=== PATIENT | female | born 1965 | race Caucasian/White ===

== ENCOUNTER 2019-09-04 15:27 | Emergency (ER) | payer OTHER, SELFPAY ==
[2019-09-04 15:38] VITALS: BP 118/70; PULSE 100; RESP 16; TEMP 36.5; O2SAT 99
--- NOTE | 2019-09-04 16:10 | ED.GENADULT ---
HPI - General Adult General Chief complaint: Upper Respiratory Infection Stated complaint: congestion sore throat Time Seen by Provider: 09/04/19 16:10 Source: patient and RN notes reviewed Mode of arrival: ambulatory Limitations: no limitations History of Present Illness HPI narrative: 54-year-old female presents with complaints of wheezing, fever, fatigue, sore throat, and PND for 3 days. Tylenol cold and sinus (last today @ 11:30am) and Dimetapp with some relief. High fevers last 2 days ago, highest 102F, orally, yesterday low-grade temperature of 99.8F, orally. No drooling, neck or throat swelling. Pain is bilateral. Hurts to swallow. Exacerbation factors consist of eating and drinking. No rhinorrhea. Nasal congestion. No voice change. No nausea, vomiting, or abdominal pain. Tolerating liquids well. Denies chills, dyspnea, difficulty swallowing, jaw pain, dental pain, facial pain, foreign body sensation, and rash. Remains active. Some parts of this dictation were generated by voice recognition software and may contain typographical and/or grammatical inaccuracies. Related Data Home Medications Medication Instructions Recorded Confirmed gabapentin 300 mg PO DAILY 09/04/19 09/04/19 insulin glargine [Lantus U-100 15 unit SUBCUT BID 09/04/19 09/04/19 Insulin] metformin 1,000 mg PO BID 09/04/19 09/04/19 pantoprazole 40 mg PO HS 09/04/19 09/04/19 semaglutide [Ozempic] 0.25 mg SUBCUT WEEKLY 09/04/19 09/04/19 Allergies Allergy/AdvReac Type Severity Reaction Status Date / Time No Known Allergies Allergy Unknown Verified 09/04/19 15:51 Review of Systems Review of Systems: Narrative: CONSTITUTIONAL: Complains of fever. Denies chills, sweats. EYES: Denies visual changes, redness, discharge. ENT: Complains of rhinorrhea, sore throat, congestion. Denies otalgia. CARDIOVASCULAR: Denies chest pain, palpitations, edema. RESPIRATORY: Denies dyspnea. Complains of cough, wheezing. GASTROINTESTINAL: Denies abdominal pain, nausea, vomiting, diarrhea. GENITOURINARY: Denies dysuria, hematuria, abnormal discharge. SKIN: Denies rash or itching. MUSCULOSKELETAL: Denies acute back pain, joint pain, or myalgia. NEUROLOGIC: Denies numbness or focal weakness. PSYCHIATRIC: Denies anxiety or depression. All systems reviewed & are unremarkable except as noted in HPI and below. [facility] Past Medical History Medical History Bronchitis Diabetes HLD (hyperlipidemia) HTN (hypertension) Peripheral neuropathy Surgical History Surgical History History of bilateral oophorectomy History of hysterectomy History of inguinal hernia repair As baby History of lumbar surgery L4-L5 fusion History of rotator cuff surgery lt rotator cuff, 2 screws History of tubal ligation Family History Family History Mother Hypertension Father Family history of diabetes mellitus in first degree relative Family history of coronary artery disease Social History Social History Smoking status: Never smoker Alcohol intake: never Gender identity (if verbalized by the patient): Female Comments At time of signature, agree with nurse past medical, surgical, social, and family history. There is no relevant family history pertinent to the presenting complaint. Exam Narrative: Exam Narrative: GENERAL: This is a well-nourished, well-developed patient, in no apparent distress. Speaks in full sentences without deficits and ambulates with steady gait without dyspnea. HEAD: normocephalic, atraumatic. EYES: PERRL. Sclera clear/white. Vision is grossly intact. EARS: External ears normal, auditory canals clear and without drainage, TMs normal without perforation. Hearing grossly intact. NOSE: External nose normal with no obv
== END 2019-09-04 16:27 | disposition home or self-care (01) ==
PROVIDERS: Emergency Provider Nurse Practitioner Family
DX: J40 Bronchitis, not specified as acute or chronic (principal)
CPT/HCPCS: 87081; 87880; 99213; G0463

== ENCOUNTER 2020-09-11 14:44 | Emergency (ER) | payer OTHER, SELFPAY ==
--- NOTE | ~2020-09-11 | XR_ITS ---
EXAMINATION: XR humerus RT DATE: 09/11/2020 15:49 INDICATION: Mid to proximal right humeral pain post fall TECHNIQUE: Internal and axillary rotated views of the right humerus were obtained. COMPARISON: None. FINDINGS: Line alignment is normal. No fracture. Polyarticular osteoarthritis, mild at the right elbo w and glenohumeral joint and moderate at the right acromioclavicular joint. Large anterior and latera l subacromial spurs. The undersurface of the acromion projects within a couple millimeter of the grea ter tuberosity on the externally rotated view which suggests the possibility of rotator cuff disease. Several enthesopathic calcification at the lateral epicondylar origin of the common extensor tendon wad. IMPRESSION: 1. Chronic degenerative changes at the right shoulder and elbow as detailed above. No acute osseous a bnormality. Reviewed, dictated and finalized at location A. OTICS DETECTIVE IMPRESSION: 1. Chronic degenerative changes at the right shoulder and elbow as detailed abo ve. No acute osseous abnormality.
--- NOTE | ~2020-09-11 | XR_ITS ---
EXAMINATION: XR sacrum coccyx min 2V DATE: 09/11/2020 15:49 INDICATION: Tailbone pain post fall TECHNIQUE: AP, angled AP and lateral views of the sacrum were obtained. COMPARISON: Lumbar spine radiograph dated 09/23/[address] dated 06/27/2019 FINDINGS: Stable appearance of peripheral posterior angulation at the distalmost sacral segment which could be developmental variation or sequela of old healed fracture. Alignment is otherwise normal. Sacral arch es are intact. No acute fractures identified. Mild polyarticular osteoarthritis at the bilateral hip and sacroiliac joints. Mild to moderate lower lumbar spondylosis. Several phleboliths in the pelvis. IMPRESSION: 1. No acute osseous abnormality. Reviewed, dictated and finalized at location A. CTURAL RIGGER
[2020-09-11 15:00] VITALS: BP 107/80; PULSE 102; RESP 20; TEMP 36.9; O2SAT 98
[2020-09-11 15:14] VITALS: BP 107/80; PULSE 102; RESP 20; TEMP 36.9; O2SAT 98
--- NOTE | 2020-09-11 16:09 | ED.GENADULT ---
HPI - General Adult General Chief complaint: Fall Stated complaint: tailbone and arm injury Time Seen by Provider: 09/11/20 15:04 Source: patient and RN notes reviewed Mode of arrival: ambulatory Limitations: no limitations History of Present Illness HPI narrative: Patient presents today complaining of tailbone and right shoulder pain. Around 11 AM today she slipped and fell down 3 steps at home. She is experiencing pain in the tailbone that does not radiate. Denies numbness or tingling in all 4 extremities. Denies numbness or tingling in the genitalia. Denies any loss of bowel or bladder control. Patient took Aleve and a hot bath at home without relief. Currently rates her pain 5/10. History of L4 discectomy. MD complaint: Tailbone injury, right shoulder injury Related Data Home Medications Medication Instructions Recorded Confirmed gabapentin 300 mg PO TID 09/04/19 09/11/20 insulin glargine [Lantus U-100 15 unit SUBCUT BID 09/04/19 09/11/20 Insulin] metformin 1,000 mg PO BID 09/04/19 09/11/20 pantoprazole 40 mg PO HS 09/04/19 09/11/20 semaglutide [Ozempic] 0.25 mg SUBCUT WEEKLY 09/04/19 09/11/20 Allergies Allergy/AdvReac Type Severity Reaction Status Date / Time No Known Allergies Allergy Unknown Verified 09/11/20 15:09 Review of Systems Review of Systems: Narrative: CONSTITUTIONAL: Denies body aches, fever, chills, or sweats. EYES: Denies visual changes, redness, or discharge. ENT: Denies rhinorrhea, congestion, sore throat, or otalgia. CARDIOVASCULAR: Denies chest pain, palpitations, or edema. RESPIRATORY: Denies cough or dyspnea. GASTROINTESTINAL: Denies abdominal pain, nausea, vomiting, or diarrhea. GENITOURINARY: Denies dysuria or hematuria. SKIN: Denies rash, itching, or wounds. MUSCULOSKELETAL: + Coccyx injury, right shoulder injury NEUROLOGIC: Denies headache, numbness, tingling, or weakness. PSYCH: Denies depression or anxiety. [facility] Past Medical History Medical History Bronchitis Diabetes HLD (hyperlipidemia) HTN (hypertension) Peripheral neuropathy Surgical History Surgical History History of bilateral oophorectomy History of hysterectomy History of inguinal hernia repair As baby History of lumbar surgery L4-L5 fusion History of rotator cuff surgery lt rotator cuff, 2 screws History of tubal ligation Family History Family History Mother Hypertension Father Family history of diabetes mellitus in first degree relative Family history of coronary artery disease Social History Social History Smoking status: Never smoker Alcohol intake: never Gender identity (if verbalized by the patient): Female Comments At time of signature, I have reviewed and agree with nursing past medical, surgical, social and family history unless otherwise noted. Please see nursing chart for further information. There is no relevant family history pertinent to the presenting complaint Exam Narrative: Exam Narrative: GENERAL: Well-appearing, well-nourished, and in no acute distress. HEAD: Normocephalic, atraumatic. EYES: EOMI. No redness or drainage. Conjunctivae normal. ENT: Mucous membranes pink and moist. NECK: Normal AROM. CHEST: No respiratory distress. MUSCULOSKELETAL: Bony tenderness of the coccyx. No gluteal tenderness. No lumbar spinal or paraspinal muscle tenderness. EXTREMITIES: Normal range of motion. No edema. Dorsiflexion and extension equal and strong against resistance. Distal sensation intact. Capillary refill normal. Pedal pulses normal. Right shoulder is mildly tender to the proximal humerus. Mild pain with range of motion, however, patient uses this arm getting in and out of the chair without difficulty. Distal sensation intact
== END 2020-09-11 16:20 | disposition home or self-care (01) ==
PROVIDERS: Emergency Provider Nurse Practitioner; PCP Nurse Practitioner Family
DX: S39.92XA Unspecified injury of lower back, initial encounter (principal); W10.9XXA Fall (on) (from) unspecified stairs and steps, initial encounter; S49.91XA Unspecified injury of right shoulder and upper arm, initial encounter; E78.5 Hyperlipidemia, unspecified; I10 Essential (primary) hypertension; E11.42 Type 2 diabetes mellitus with diabetic polyneuropathy
CPT/HCPCS: 72220; 73060; 99214; G0463

== ENCOUNTER 2020-11-25 17:11 | Emergency (ER) | payer OTHER, SELFPAY ==
--- NOTE | ~2020-11-25 | XR_ITS ---
EXAMINATION: XR chest 2V DATE: 11/25/2020 17:40 INDICATION: COVID exposure presenting with cough and hypoxia TECHNIQUE: frontal and lateral views of the chest were obtained. COMPARISON: Chest radiograph dated 04/25/19 FINDINGS: Subtle patchy airspace opacities in the bilateral lower lung zones on the frontal projection more pro mptly seen posteriorly in the lower lobes on the lateral projection. No pleural effusion or pneumotho rax. The cardiomediastinal silhouette is normal. Mild thoracic spondylosis. IMPRESSION: 1. Opacities in the bilateral lower lobes suspicious for pneumonia with differential including less l ikely pulmonary edema, atelectasis or aspiration in the appropriate clinical setting. Reviewed, dictated and finalized at location A. IMPRESSION: 1. Opacities in the bilateral lower lobes suspicious for pneumonia with differe ntial including less likely pulmonary edema, atelectasis or aspiration in the a ppropriate clinical setting.
[2020-11-25 17:15] VITALS: BP 129/82; PULSE 113; RESP 16; TEMP 36.4; O2SAT 93
--- NOTE | 2020-11-25 17:20 | ED.GENADULT ---
HPI - General Adult General Chief complaint: Upper Respiratory Infection Stated complaint: cough Time Seen by Provider: 11/25/20 17:20 Source: patient Mode of arrival: ambulatory Limitations: no limitations History of Present Illness HPI narrative: 55-year-old female patient presents to the [facility] with complaints of a cough that started 2 days ago. Patient states she had some sinus symptoms and was treated for sinus infection about 2 weeks ago and was feeling better about a week ago. Patient states that she was a last around a coworker that tested positive for Covid 2 days ago and started having a cough the day after her exposure. Patient denies any chest pain or shortness of breath or fevers but continues to have a cough. Patient states she has taken some [id number] Mucinex. 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 Patient states she has not received any Covid vaccines. Related Data Home Medications Medication Instructions Recorded Confirmed gabapentin 300 mg PO TID 09/04/19 11/25/20 insulin glargine [Lantus U-100 15 unit SUBCUT BID 09/04/19 11/25/20 Insulin] metformin 1,000 mg PO BID 09/04/19 11/25/20 semaglutide [Ozempic] 0.25 mg SUBCUT WEEKLY 09/04/19 11/25/20 Allergies Allergy/AdvReac Type Severity Reaction Status Date / Time codeine AdvReac Unknown Verified 11/25/20 17:25 Review of Systems Review of Systems: Narrative: CONSTITUTIONAL: Denies fever, chills, or sweats. EYES: Denies visual changes, redness, or discharge. ENT: Denies rhinorrhea, congestion, sore throat, or otalgia. CARDIOVASCULAR: Denies chest pain, palpitations, or edema. RESPIRATORY: Positive cough, denies dyspnea. GASTROINTESTINAL: Denies abdominal pain, nausea, vomiting, or diarrhea. GENITOURINARY: Denies dysuria or hematuria. SKIN: Denies rash or itching. MUSCULOSKELETAL: Denies back pain, joint pain, or myalgia. NEUROLOGIC: Denies headache, numbness, or weakness. PSYCHIATRIC: Denies anxiety or depression. [facility] Past Medical History Medical History (Updated 11/25/20 @ 18:18 by JOANIE Chowdhury) Bronchitis Diabetes HLD (hyperlipidemia) HTN (hypertension) Peripheral neuropathy Surgical History Surgical History History of bilateral oophorectomy History of hysterectomy History of inguinal hernia repair As baby History of lumbar surgery L4-L5 fusion History of rotator cuff surgery lt rotator cuff, 2 screws History of tubal ligation Family History Family History Mother Hypertension Father Family history of diabetes mellitus in first degree relative Family history of coronary artery disease Social History Social History Smoking status: Never smoker Alcohol intake: never Gender identity (if verbalized by the patient): Female Comments At the time of my signature I agree with nursing past medical history, surgical, social, and family history. There is no relevant family history pertinent to the presenting complaint. Exam Narrative: Exam Narrative: GENERAL: Well-appearing, well-nourished, and in no acute distress. HEAD: Normocephalic, atraumatic. EYES: PERRLA and EOMI. ENT: Nares clear, no rhinorrhea or epistaxis. Mucous membranes moist. NECK: Supple. No lymphadenopathy CHEST: Patient has slight wheezing noted to bilateral lower lobes on inspiration. No respiratory distress. Patient does have coughing noted during exam. HEART: Regular rate and rhythm. No murmur heard. Normal peripheral pulses. ABDOMEN: Soft, nontender, nondistended, normal active bowel sounds. EXTREMITIES: Normal range of motion. No edema. SKIN: Warm, dry, no rash. NEURO: No focal deficits. Alert and oriented x3. Course Reevaluation(s) Reevaluation #1: Reevaluated patient once her x-ray resulted. Discussed with her that the x-ray does show bilateral lower pneumonia.
[2020-11-27 14:27] LABS: SARS-CoV-2 RNA PCR Positive
== END 2020-11-25 18:24 | disposition home or self-care (01) ==
PROVIDERS: Emergency Provider Nurse Practitioner Family; PCP Nurse Practitioner Family
DX: U07.1 COVID-19 (principal); J12.82 Pneumonia due to coronavirus disease 2019; E78.5 Hyperlipidemia, unspecified; I10 Essential (primary) hypertension; E11.42 Type 2 diabetes mellitus with diabetic polyneuropathy
CPT/HCPCS: 71046; 99213; C9803; G0463; U0003; U0005

== ENCOUNTER 2020-12-30 17:07 | Emergency (ER) | payer OTHER, SELFPAY ==
--- NOTE | ~2020-12-30 | XR_ITS ---
XR chest 2V DATE: 12/30/2020 17:59 INDICATION: Cough, shortness of breath for 2 days TECHNIQUE: 2 views COMPARISON: 11/25/2020 2 view chest FINDINGS: Normal heart size. No hilar or mediastinal enlargement. There is virtual resolution of bila teral lower lobe infiltrates since 11/25/2020. No pleural effusion or pulmonary vascular congestion or pneumothorax. IMPRESSION: Virtual resolution of bilateral lower lobe infiltrates since 11/25/2020 Reviewed, dictated and finalized at location A. IMPRESSION: Virtual resolution of bilateral lower lobe infiltrates since 11/26/19 21
[2020-12-30 17:20] VITALS: BP 107/78; PULSE 110; RESP 22; TEMP 37.1; O2SAT 99
--- NOTE | 2020-12-30 18:08 | ED.URI ---
HPI - URI/Sore Throat General Chief Complaint: Upper Respiratory Infection Stated Complaint: cough,headache Time Seen by Provider: 12/30/20 17:19 Source: patient, RN notes reviewed and old records reviewed Mode of arrival: ambulatory Limitations: no limitations History of Present Illness HPI Narrative: Patient presents today complaining of a 2-day history of fatigue, chills, sweats, cough, fever up to 100.4. Reports shortness of breath since this morning. Denies any history of asthma or COPD. Patient had COVID-19 last month and was diagnosed on 11/25/2020 here at [facility]. Patient had her first Moderna COVID-19 vaccine 2 days ago. She believes that she may be experiencing side effects symptoms and is very nervous. Most of her family has told her that it is against their mormon beliefs to get the vaccine and this is causing her a lot of anxiety. History of insulin-dependent diabetes. Related Data Home Medications Medication Instructions Recorded Confirmed gabapentin 300 mg PO TID 09/04/19 12/30/20 insulin glargine [Lantus U-100 15 unit SUBCUT BID 09/04/19 12/30/20 Insulin] metformin 1,000 mg PO BID 09/04/19 12/30/20 semaglutide [Ozempic] 0.25 mg SUBCUT WEEKLY 09/04/19 12/30/20 Allergies Allergy/AdvReac Type Severity Reaction Status Date / Time codeine AdvReac Unknown Verified 12/30/20 17:12 Review of Systems Review of Systems: Narrative: CONSTITUTIONAL:+ Body aches, chills, sweats, fatigue, fever EYES: Denies visual changes, redness, or discharge. ENT: Denies rhinorrhea, congestion, sore throat, or otalgia. CARDIOVASCULAR: Denies chest pain, palpitations, or edema. RESPIRATORY: + Cough, shortness of breath GASTROINTESTINAL: Denies abdominal pain, nausea, vomiting, or diarrhea. GENITOURINARY: Denies dysuria or hematuria. SKIN: Denies rash, itching, or wounds. MUSCULOSKELETAL: Denies back pain, joint pain, or myalgia. NEUROLOGIC: Denies headache, numbness, tingling. + Weakness PSYCH: Denies depression or anxiety. [facility] Past Medical History Medical History (Updated 12/30/20 @ 18:58 by Priti Mensah, INFORMATION SCIENTIST, ) Bronchitis Diabetes History of COVID-19 HLD (hyperlipidemia) HTN (hypertension) Peripheral neuropathy Surgical History Surgical History History of bilateral oophorectomy History of hysterectomy History of inguinal hernia repair As baby History of lumbar surgery L4-L5 fusion History of rotator cuff surgery lt rotator cuff, 2 screws History of tubal ligation Family History Family History Mother Hypertension Father Family history of diabetes mellitus in first degree relative Family history of coronary artery disease Social History Social History Smoking status: Never smoker Alcohol intake: never Gender identity (if verbalized by the patient): Female Comments At time of signature, I have reviewed and agree with nursing past medical, surgical, social and family history unless otherwise noted. Please see nursing chart for further information. There is no relevant family history pertinent to the presenting complaint Exam Narrative: Exam Narrative: GENERAL: Well-appearing, well-nourished, and in no acute distress. HEAD: Normocephalic, atraumatic. EYES: EOMI. No redness or drainage. Conjunctivae normal. ENT: Mucous membranes pink and moist. Nares clear. No rhinorrhea. TMs normal bilaterally. Throat normal. Uvula midline. NECK: Normal AROM. Supple. No lymphadenopathy. CHEST: No respiratory distress. Clear to auscultation. Patient coughed a few times at the beginning of the exam. She did not cough at all during the 15 minutes that we were speaking about her symptoms and her vaccine and the side effects of it. During this time also, she was not short of breath outwardly and there were no signs
== END 2020-12-30 19:00 | disposition home or self-care (01) ==
PROVIDERS: Emergency Provider Nurse Practitioner; PCP Nurse Practitioner Family
DX: R53.83 Other fatigue (principal); R50.9 Fever, unspecified; R06.02 Shortness of breath; T50.B95A Adverse effect of other viral vaccines, initial encounter; R05 Cough; E78.5 Hyperlipidemia, unspecified; I10 Essential (primary) hypertension; E11.42 Type 2 diabetes mellitus with diabetic polyneuropathy; Z86.16 Personal history of COVID-19
CPT/HCPCS: 71046; 99213; G0463

== ENCOUNTER 2021-01-17 17:46 | Outpatient (CLI) | payer OTHER, SELFPAY ==
--- NOTE | ~2021-01-17 | XR_ITS ---
EXAMINATION: XR chest 2V DATE: 01/17/2021 18:12 INDICATION: Upper respiratory infection. TECHNIQUE: Frontal and lateral views of the chest were obtained. COMPARISON: Chest 2 views 12/30/2020 FINDINGS: The chest demonstrates clear lungs without pneumonia, pleural effusion, or pneumothorax. Th e heart size is normal. IMPRESSION: 1. No acute cardiopulmonary disease. Reviewed, dictated and finalized at location A.
== END 2021-01-17 17:47 | disposition home or self-care (01) ==
LOC: ANHIMG 17:50
PROVIDERS: PCP Nurse Practitioner Family; Visit Provider Nurse Practitioner Family
DX: J06.9 Acute upper respiratory infection, unspecified (principal)
CPT/HCPCS: 71046

== ENCOUNTER 2021-01-18 12:03 | Emergency (ER) | payer OTHER, SELFPAY ==
[2021-01-18 12:13] VITALS: BP 110/76; PULSE 110; RESP 16; TEMP 37.4; O2SAT 98
--- NOTE | 2021-01-18 12:23 | ED.URI ---
HPI - URI/Sore Throat General Chief Complaint: Upper Respiratory Infection Stated Complaint: Coughing, Shortness of breath Time Seen by Provider: 01/18/21 12:23 Source: patient Mode of arrival: ambulatory Limitations: no limitations History of Present Illness HPI Narrative: Dominique Simpson is a 55 yo female with c/o worsening breathing/cough since yesterday. Called primary care doctor yesterday who ordered a chest x-ray at [facility] which came back negative. She states her cough and general feelings of shortness of breath are worse today than were yesterday and she needs some additional medication she states that she cannot take prednisone because of her diabetes, thinks she needs an antibiotic, but needs additional medication Related Data Home Medications Medication Instructions Recorded Confirmed gabapentin 300 mg PO TID 09/04/19 01/18/21 insulin glargine [Lantus U-100 15 unit SUBCUT BID 09/04/19 01/18/21 Insulin] metformin 1,000 mg PO BID 09/04/19 01/18/21 semaglutide [Ozempic] 0.25 mg SUBCUT WEEKLY 09/04/19 01/18/21 Allergies Allergy/AdvReac Type Severity Reaction Status Date / Time codeine AdvReac Unknown Verified 01/18/21 12:42 Review of Systems Review of Systems: Narrative: CONSTITUTIONAL: Denies fever, chills, sweats. EYES: Denies visual changes, redness, discharge. ENT: Denies rhinorrhea, congestion, sore throat, otalgia. CARDIOVASCULAR: Denies chest pain, palpitations, edema. RESPIRATORY: Complaining of dyspnea, wheezing, has cough GASTROINTESTINAL: Denies abdominal pain, nausea, vomiting, diarrhea. GENITOURINARY: Denies dysuria, hematuria, abnormal discharge SKIN: Denies rash or itching. NEUROLOGIC: Denies numbness, or focal weakness. PSYCHIATRIC: Denies anxiety or depression. [facility] Past Medical History Medical History Bronchitis Diabetes History of COVID-19 HLD (hyperlipidemia) HTN (hypertension) Peripheral neuropathy Surgical History Surgical History History of bilateral oophorectomy History of hysterectomy History of inguinal hernia repair As baby History of lumbar surgery L4-L5 fusion History of rotator cuff surgery lt rotator cuff, 2 screws History of tubal ligation Family History Family History Mother Hypertension Father Family history of diabetes mellitus in first degree relative Family history of coronary artery disease Social History Social History Smoking status: Never smoker Alcohol intake: never Gender identity (if verbalized by the patient): Female Comments At time of signature, I agree with nursing past medical, surgical, social and family history. There is no relevant family history pertinent to the presenting complaint. Exam Narrative: Exam Narrative: GENERAL: This is a fair nourished, well-developed patient, slow to response and states he feels poorly HEAD: normocephalic, atraumatic. EYES: Sclera clear/white. Vision is grossly intact. EARS: External ears normal, Hearing grossly intact. NOSE: External nose normal without nasal discharge, nares without redness, no rhinorrhea. THROAT: Mucous membranes moist, NECK: Neck supple, non-tender CARDIOVASCULAR: Tachycardic rate and rhythm without murmurs, gallops, or rubs. RESPIRATORY: Clear to auscultation. Breath sounds equal . No wheezes, rales, or rhonchi. GASTROINTESTINAL: Abdomen soft, SKIN: warm, intact with no suspicious lesions or rash, good texture and turgor. NEURO: awake, alert, and oriented to person, place and time. There were no obvious focal neurologic abnormalities. Steady gait EXTREMITIES: Normal range of motion. BACK: Nontender without deformity Course Course Emergency Course: Patient here for increasing cough states she has been coughing up yellow and green mucus . He
[2021-01-18] MEDS: IPRATROPIUM BR 0.02% INH SOLN 0.5 MG/2.5 ML VIAL INHALATION (13:03)
[2021-01-18] MEDS: ALBUTEROL SULFATE NEB 2.5 MG/3 ML INH 1.25 MG INHALATION (13:04)
== END 2021-01-18 14:12 | disposition home or self-care (01) ==
PROVIDERS: Emergency Provider Nurse Practitioner; PCP Nurse Practitioner Family
DX: J06.9 Acute upper respiratory infection, unspecified (principal); E78.5 Hyperlipidemia, unspecified; I10 Essential (primary) hypertension; E11.42 Type 2 diabetes mellitus with diabetic polyneuropathy; Z86.16 Personal history of COVID-19; Z90.711 Acquired absence of uterus with remaining cervical stump
CPT/HCPCS: 94640; 99213; G0463

== ENCOUNTER 2021-03-30 14:12 | Emergency (ER) | payer OTHER, SELFPAY ==
--- NOTE | ~2021-03-30 | XR_ITS ---
EXAMINATION: XR foot RT 2V DATE: 03/30/2021 14:49 INDICATION: Right foot injury. TECHNIQUE: 2 views of right foot were obtained. COMPARISON: None. FINDINGS: Bone alignment is normal. No acute fracture. There is a chronic bone fragment distal to med ial malleolus. There is mild osteoarthritis of first metatarsophalangeal joint and some of the interp halangeal joints and midfoot joints. There are enthesophytes at the posterior and plantar aspects of calcaneal tuberosity. IMPRESSION: 1. Mild polyarticular osteoarthritis. Reviewed, dictated and finalized at location A.
--- NOTE | 2021-03-30 14:40 | ED.LOWEXIN ---
HPI - Extremity Injury (Lower) General Chief Complaint: Extremity Injury, Lower Stated Complaint: R foot injury, felt something pop Source: patient Mode of arrival: ambulatory Limitations: no limitations History of Present Illness HPI Narrative: this is a 56-year-old female that presents after she injured her right medial foot after pushing a stroller and twisted her right foot causing some bruising and some mild swelling has good range of motion pain level about a 4/10 has no numbness or tingling. complaint: foot injury Onset (ago): day(s) Injury: Right: foot Type of Injury: inversion Place: street/outdoors Severity: mild Severity scale (1-10): 4 Relieving factors: nothing Exacerbating factors: nothing Context: running Related Data Home Medications Medication Instructions Recorded Confirmed gabapentin 300 mg PO TID 09/04/19 01/18/21 insulin glargine [Lantus U-100 15 unit SUBCUT BID 09/04/19 01/18/21 Insulin] metformin 1,000 mg PO BID 09/04/19 01/18/21 semaglutide [Ozempic] 0.25 mg SUBCUT WEEKLY 09/04/19 01/18/21 Allergies Allergy/AdvReac Type Severity Reaction Status Date / Time codeine AdvReac Unknown Verified 01/18/21 12:42 Review of Systems Review of Systems: All systems reviewed & are unremarkable except as noted in HPI and below PMFSH Past Medical History Medical History Bronchitis Diabetes History of COVID-19 HLD (hyperlipidemia) HTN (hypertension) Peripheral neuropathy Surgical History Surgical History History of bilateral oophorectomy History of hysterectomy History of inguinal hernia repair As baby History of lumbar surgery L4-L5 fusion History of rotator cuff surgery lt rotator cuff, 2 screws History of tubal ligation Family History Family History Mother Hypertension Father Family history of diabetes mellitus in first degree relative Family history of coronary artery disease Social History Social History Smoking status: Never smoker Alcohol intake: never Gender identity (if verbalized by the patient): Female Exam Const: General: no acute distress Orientation/consciousness: patient oriented x3 HENMT: Head: normal to inspection Eyes: Conjunctivae: conjunctivae normal Pupils: Equal, round and reactive pupils present Neck: Neck: normal visual inspection, no lymphadenopathy and no meningeal signs Chest: Chest palpation & inspection: normal inspection of the chest Resp: Effort & Inspection: normal respiratory effort Cardio: Rate: regular rate Rhythm: regular rhythm GI: GI Palp: Yes Soft to palpation Percussion: Yes normal to percussion : General: Yes no CVA tenderness Back/Spine/Pelvis: Back: no CVA tenderness Skin: General skin exam: normal color Rashes: no rashes Neuro: General: patient oriented x3 and moves all extremities Extrem: Other: Has some medial right foot tenderness with some mild hematoma and mild swelling with good range of motion no numbness or tingling. Psych: Mental Status: mental status grossly normal Affect: normal affect Course Course Emergency Course: Patient received Toradol injection, and x-ray reviewed with patient, David wrap was applied. Critical Care Time Critical Care Time Critical Care Time: No Discharge Plan Discharge Clinical Impression: Sprain of right foot Patient Disposition: Home, Self-Care Condition: Stable Instructions: Antibiotic Form, Foot Sprain (ED) Additional Instructions: continue David wrap, Tylenol or Motrin for pain and inflammation rest keep elevated can use ice to affected limb and follow-up with primary care physician if symptoms persist or worsen. Prescriptions: No Action metformin 1,000 mg Tablet 1,000 mg PO BID RF: 0 gabapentin 300 mg
[2021-03-30 14:54] VITALS: BP 142/80; PULSE 100; RESP 20; TEMP 36.7; O2SAT 99
[2021-03-30] MEDS: KETOROLAC (*BKC) 60 MG/2 ML VIAL IM (15:00)
[2021-03-30 15:15] VITALS: BP 140/84; PULSE 97; RESP 20; TEMP 36.4; O2SAT 98
== END 2021-03-30 15:17 | disposition home or self-care (01) ==
PROVIDERS: Emergency Provider Emergency Medicine; PCP Nurse Practitioner Family
DX: S93.601A Unspecified sprain of right foot, initial encounter (principal); X58.XXXA Exposure to other specified factors, initial encounter
CPT/HCPCS: 73620; 96372; 99283; J1885

== ENCOUNTER 2021-04-25 07:37 | Emergency (ER) | payer OTHER, SELFPAY ==
--- NOTE | ~2021-04-25 | CT_ITS ---
EXAMINATION: CT abdomen pelvis w con DATE: 04/25/2021 09:18 INDICATION: Mid abdominal pain for 4 years TECHNIQUE: Computed tomography (CT) of the abdomen and pelvis was performed with 100 cc Omnipaque 350 intravenous contrast. Automated exposure control and iterative reconstruction technique were employe d. Exam dose: 219.19 mGy-cm total exam DLP. COMPARISON: 06/27/2019 CT abdomen pelvis FINDINGS: The lung bases are clear of infiltrate or consolidation. No heart size. No pericardial or p leural effusion. There are numerous small stones in the dependent aspect of the gallbladder. No gallbladder wall thick ening or pericholecystic fluid or fat stranding. The common bile duct appears mildly prominent but tapers distally. No intrahepatic bile duct dilatati on. No pancreatic mass lesion, calcification or ductal dilatation. Normal splenic size. Normal morphology of the adrenal glands. 12 mm and 7 mm left renal cysts and possible upper pole 5 mm right renal cyst. No urinary tract calcu evelia or hydroureteronephrosis is detected. The urinary bladder, uterus and adnexal areas are unremarka ble. Normal caliber of the abdominal aorta. No intraperitoneal or retroperitoneal or pelvic mass lesion or adenopathy or ascites. Normal appendix. No bowel obstruction, bowel wall thickening, pneumatosis or intraperitoneal free air is detected. No suspicious osteolytic or osteoblastic lesions. IMPRESSION: Cholelithiasis Renal cysts Normal appendix Reviewed, dictated and finalized at Location A. Reviewed, dictated and finalized at location B.
--- NOTE | 2021-04-25 08:05 | ECG_ITS ---
Measurements Intervals [place] Rate: 93 P: 47 HI: 158 QRS: 88 QRSD: 100 T: 66 QT: 346 QTc: 432 Interpretive Statements SINUS RHYTHM DELAYED PRECORDIAL R/S TRANSITION BORDERLINE ECG Electronically Signed On 04-25-2021 8:25:20 CDT by Florentino Herring D.O.
[2021-04-25 08:25] LABS: Add Urine Microscopic? YES; Appearance Urine Clear (Clear); Bilirubin Urine Negative (Negative); Blood Urine Negative (Negative); Color Urine Light Yellow (Yellow); Glucose Urine UA 3+ (Negative); Ketones Urine Negative (Negative); Leukocyte Esterase Ur Negative (Negative); Nitrate Urine Negative (Negative); Protein Urine Negative (Negative); Urobilinogen Urine 0.2 mg/dL (0.2-1.0)
[2021-04-25 08:27] LABS: Basophils Absolute Auto 0.03 K/mm3 (0.00-0.10); Basophils Percent Auto 0.5 % (0.0-1.0); Eosinophils Absolute Auto 0.31 K/mm3 (0.02-0.50); Eosinophils Percent Auto 5.2 % (1.0-6.0); Hematocrit 40.4 % (35.0-49.0); Hemoglobin 13.9 g/dL (12.0-15.0); Immature Granulocyte Absolute 0.01 K/mm3 (0.00-0.00); Immature Granulocyte Percent A 0.2 % (0.0-0.0); Lymphocytes Absolute Auto 2.28 K/mm3 (1.10-4.50); Mean Corpuscular HGB Conc 34.4 g/dL (32.0-36.0); Mean Corpuscular Hemoglobin 28.1 pg (27.0-31.0); Mean Corpuscular Volume 81.6 fL (78.0-102.0); Mean Platelet Volume 9.4 fl (9.2-11.8); Monocytes Absolute Auto 0.59 K/mm3 (0.10-0.90); Monocytes Percent Auto 9.8 % (2.0-11.0); Neutrophils Absolute Auto 2.8 K/mm3 (1.7-7.2); Neutrophils Percent Auto 46.3 % (50.0-70.0); Platelet Count Result 289 K/mm3 (150-420); Red Blood Count 4.95 M/mm3 (4.20-5.40); Red Cell Distribution Width 11.9 % (11.6-14.4)
[2021-04-25 08:28] LABS: Pregnancy On Board Control Positive; Urine Pregnancy Test Negative
[2021-04-25 08:30] LABS: Bacteria Urine Trace /hpf; Mucus Urine Few /lpf; RBC Urine None seen /hpf (0-2); Squamous Epithelial Cell Urine Rare /hpf (Few); WBC Urine None seen /hpf (0-3)
[2021-04-25 08:39] LABS: Prothrombin Time 10.5 Seconds (9.50-12.10)
[2021-04-25 08:43] LABS: Lactic Acid Reflex 1.4 mmol/L (0.4-2.0)
[2021-04-25 08:50] LABS: Alanine Aminotransferase 26 U/L (14-59); Alkaline Phosphatase 78 U/L (46-116); Anion Gap 12 mmol/L (8-16); Aspartate Amino Transferase 15 U/L (15-37); Bilirubin,Total 0.4 mg/dL (0.00-1.00); Blood Urea Nitrogen 15 mg/dL (7-18); Calcium 8.7 mg/dL (8.5-10.1); Carbon Dioxide 26 mmol/L (21-32); Chloride 102 mmol/L (98-108); Estimated Glomerular Filt Rate > 60; Glucose 231 mg/dL (70-99); Lipase 94 U/L (73-393); Osmolality Calculated 297 mOsm/kg (285-295); Potassium 3.7 mmol/L (3.5-5.1); Sodium 140 mmol/L (136-145); Total Protein 7.3 g/dL (6.4-8.2); Troponin I 5.6 ng/L (0.00-60.4)
[2021-04-25] MEDS: SODIUM CHLORIDE 0.9% IV 1,000 ML 999 ML IV CONT (09:14)
[2021-04-25] MEDS: MAG HYDROX/ALUMINUM HYD/SIMETH 30 ML, PHENobarb/HYOSCY/ATROPINE/SCOP 32.4 MG, LIDOCAINE... PO (09:16)
[2021-04-25] MEDS: PANTOPRAZOLE SODIUM IV 40 MG VIAL IV PUSH (09:16)
--- NOTE | 2021-04-25 09:38 | PC.NURSE ---
MD Garcia reviewed EKG
[2021-04-25 09:39] VITALS: BP 123/78; PULSE 96; RESP 14; TEMP 36.3; O2SAT 96
--- NOTE | 2021-04-25 09:42 | ED.ABDPAIN ---
HPI - Abdominal Pain General Chief Complaint: Abdominal Pain Stated Complaint: ABD PAIN Source: patient Mode of arrival: ambulatory Limitations: no limitations History of Present Illness HPI narrative: This is a 56-year-old female who presents with a one-week history of abdominal pain epigastric location with a burning fullness sensation with no fever or chills no nausea vomiting no diarrhea constipation no dysuria no hematuria. Patient has a history of diabetes, her pain has been going on for approximately 6 days has tried [id number] medications including Tums and Pepto-Bismol chief. Her pain got a little worse overnight and presents to the emergency department, with no fever chills no chest pain no shortness of breath. MD elicited complaint: abdominal pain Pertinent past history: none Onset (ago): day(s) Pain Consistency: intermittent Location: epigastric Severity: moderate Quality: burning Radiation: epigastric Related Data Home Medications Medication Instructions Recorded Confirmed gabapentin 300 mg PO TID 09/04/19 01/18/21 metformin 1,000 mg PO BID 09/04/19 01/18/21 semaglutide [Ozempic] 0.25 mg SUBCUT WEEKLY 09/04/19 01/18/21 Allergies Allergy/AdvReac Type Severity Reaction Status Date / Time codeine AdvReac Unknown Verified 01/18/21 12:42 Review of Systems Review of Systems: All systems reviewed & are unremarkable except as noted in HPI and below PMFSH Past Medical History Medical History Bronchitis Diabetes History of COVID-19 HLD (hyperlipidemia) HTN (hypertension) Peripheral neuropathy Surgical History Surgical History History of bilateral oophorectomy History of hysterectomy History of inguinal hernia repair As baby History of lumbar surgery L4-L5 fusion History of rotator cuff surgery lt rotator cuff, 2 screws History of tubal ligation Family History Family History Mother Hypertension Father Family history of diabetes mellitus in first degree relative Family history of coronary artery disease Social History Social History Smoking status: Never smoker Alcohol intake: never Gender identity (if verbalized by the patient): Female Exam Const: General: no acute distress and alert Orientation/consciousness: patient oriented x3 HENMT: Head: normal to inspection Eyes: Conjunctivae: conjunctivae normal Pupils: Equal, round and reactive pupils present EOM: EOMs intact bilaterally Direct Ophthalmoscopy: no photophobia Neck: Neck: normal visual inspection, no lymphadenopathy and no meningeal signs Chest: Chest palpation & inspection: normal inspection of the chest Resp: Effort & Inspection: normal respiratory effort Auscultation: clear to auscultation bilaterally Cardio: Rate: regular rate Rhythm: regular rhythm GI: GI Palp: Yes Soft to palpation and Yes Tenderness to palpation present (GI) ( Epigastric area tender with palpation) : General: Yes no CVA tenderness Urinary Catheter: Urinary Catheter: patent and draining Back/Spine/Pelvis: Back: no CVA tenderness Neuro: General: patient oriented x3 and moves all extremities Extrem: General: normal to inspection and no pedal edema Course Course Emergency Course: patient's epigastric discomfort has subsided somewhat, the patient had her CT scan and lab results reviewed. MDM - Abdominal Pain Lab Data Result diagrams: 04/25/21 08:19 04/25/21 08:19 Labs: Lab Results 04/25/21 04/25/21 04/25/21 Range/Units 08:05 08:19 08:19 WBC 6.0 (4.8-10.8) K/mm3 RBC 4.95 (4.20-5.40) M/mm3 Hgb 13.9 (12.0-15.0) g/dL Hct 40.4 (35.0-49.0) % MCV 81.6 (78.0-102.0) fL MCH 28.1 (27.0-31.0) pg MCHC 34.4 (32.0-36.0) g/dL RDW 11.9
[2021-04-25 10:38] VITALS: BP 136/80; PULSE 91; RESP 16; O2SAT 98
== END 2021-04-25 10:41 | disposition home or self-care (01) ==
PROVIDERS: Emergency Provider Emergency Medicine; PCP Nurse Practitioner Family
DX: K80.20 Calculus of gallbladder without cholecystitis without obstruction (principal); I10 Essential (primary) hypertension; E78.5 Hyperlipidemia, unspecified; E11.42 Type 2 diabetes mellitus with diabetic polyneuropathy; Z90.710 Acquired absence of both cervix and uterus; Z90.722 Acquired absence of ovaries, bilateral; Z98.1 Arthrodesis status
CPT/HCPCS: 36415; 74177; 80053; 81001; 81025; 83605; 83690; 84484; 85025; 85610; 85730; 93005; 96361; 96374; 99283; 99284; A9270; C9113; J7030; Q9967

== ENCOUNTER 2021-05-10 13:57 | Outpatient (CLI) | payer OTHER, SELFPAY ==
--- NOTE | ~2021-05-10 | US_ITS ---
EXAMINATION: US right upper quadrant EXAM DATE: 05/10/2021 14:39 INDICATION: Right upper quadrant pain. TECHNIQUE: Multiple grayscale and Doppler images of the abdomen right upper quadrant were obtained (b y a technologist who performed the scan) and subsequently reviewed. Comparison is made to prior exami nation from 09/03/2017. Correlation was made with CT abdomen pelvis 04/25/2021. FINDINGS: The pancreatic head and body are normal in appearance. The pancreatic tail is not visualized. The l iver has normal echogenicity and contour. There are no focal liver lesions identified. There is no evidence of intrahepatic biliary duct dilation. Portal venous flow was seen in the hepatopedal, nor mal direction and has normal Doppler waveform. No right-sided hydronephrosis. Common bile duct measures 10 mm, which is mildly dilated but unchanged compared to 2018. The gallblad chris wall is normal in thickness, with expected amount of distention. No sonographic evidence of luisito cholecystic fluid. Small poorly calcified gallstones. Technologist performing exam reports patient did not demonstrate sonographic Martin's sign. Please note that this sign is less reliable in patien ts who have received pain medication. IMPRESSION: Mild chronic CBD dilation. Small gallstones. No acute findings. Reviewed, dictated and finalized at location B.
== END 2021-05-10 13:58 | disposition home or self-care (01) ==
LOC: ANHIMG 13:59
PROVIDERS: PCP Nurse Practitioner Family; Visit Provider Nurse Practitioner Family
DX: R10.11 Right upper quadrant pain (principal); K80.20 Calculus of gallbladder without cholecystitis without obstruction
CPT/HCPCS: 76705

== ENCOUNTER 2021-08-07 16:21 | Emergency (ER) | payer OTHER, SELFPAY ==
--- NOTE | ~2021-08-07 | XR_ITS ---
EXAMINATION: XR chest 1V portable INDICATION: Cough and fever TECHNIQUE: Portable AP chest at 1731 hours COMPARISON: 01/17/2021 FINDINGS: The lungs are free of acute opacities. There is no pleural effusion or pneumothorax. The ca rdiomediastinal silhouette is normal. Surgical clips in the right upper quadrant are likely from prio r cholecystectomy. IMPRESSION: 1. No acute cardiopulmonary abnormality. Reviewed, dictated and finalized at location F. [employer]
[2021-08-07 16:24] VITALS: BP 117/77; PULSE 113; RESP 20; TEMP 36.6; O2SAT 99
[2021-08-07 17:19] VITALS: BP 117/77; PULSE 98; RESP 18; O2SAT 99
--- NOTE | 2021-08-07 19:13 | ED.GENADULT ---
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 she notes a fever chills body aches denies vomiting diarrhea notes nonproductive cough has not taken anything for her symptoms presents uncomfortable but nondistressed Related Data Home Medications Medication Instructions Recorded Confirmed gabapentin 300 mg PO TID 09/04/19 04/25/21 metformin 1,000 mg PO BID 09/04/19 04/25/21 semaglutide [Ozempic] 0.25 mg SUBCUT WEEKLY 09/04/19 04/25/21 Allergies Allergy/AdvReac Type Severity Reaction Status Date / Time codeine AdvReac Unknown Verified 01/18/21 12:42 Review of Systems Review of Systems: All systems reviewed & are unremarkable except as noted in HPI and below PMFSH Past Medical History Medical History Bronchitis Diabetes History of COVID-19 HLD (hyperlipidemia) HTN (hypertension) Peripheral neuropathy Surgical History Surgical History History of bilateral oophorectomy History of hysterectomy History of inguinal hernia repair As baby History of lumbar surgery L4-L5 fusion History of rotator cuff surgery lt rotator cuff, 2 screws History of tubal ligation Family History Family History Mother Hypertension Father Family history of diabetes mellitus in first degree relative Family history of coronary artery disease Social History Social History Smoking status: Never smoker Alcohol intake: never Gender identity (if verbalized by the patient): Female Exam Narrative: GENERAL: Ill-appearing, well-nourished, and in no acute distress. HEAD: Normocephalic, atraumatic. EYES: PERRLA and EOMI. ENT: Nares clear, no rhinorrhea or epistaxis. Mucous membranes moist. CHEST: Clear to auscultation. No respiratory distress. No wheezes rales or rhonchi HEART: Regular rate and rhythm. No murmur heard. Normal peripheral pulses. EXTREMITIES: Normal range of motion. No edema. SKIN: Warm, dry, no rash. NEURO: No focal deficits. Alert and oriented x3. Cranial nerves II through XII grossly intact. Normal speech and gait PSYCH: Normal mood and affect. Course Course Emergency Course: Patient presented with viral syndrome will be discharged home COVID testing pending negative influenza felt appropriate for outpatient reevaluation afebrile nontoxic. Patient felt appropriate for outpatient reevaluation provided with reasons to return ABCs and vital signs intact and stable Vital Signs Vital signs: Vital Signs Temperature 97.9 F 08/07/21 16:24 Pulse Rate 113 H 08/07/21 16:24 Respiratory Rate 20 08/07/21 16:24 Blood Pressure 117/77 08/07/21 16:24 Pulse Oximetry 99 08/07/21 16:24 Temperature 97.9 F 08/07/21 16:24 Pulse Rate 98 08/07/21 17:19 Respiratory Rate 18 08/07/21 17:19 Blood Pressure 117/77 08/07/21 17:19 Pulse Oximetry 99 08/07/21 17:19 Medical Decision Making MDM Narrative Medical decision making narrative: Patient with likely viral syndrome nontoxic-appearing will be discharged with outpatient follow-up given strict indications for return she is afebrile nontoxic-appearing nondistressed Vital Signs Vital Signs: Vital Signs Temperature 97.9 F 08/07/21 16:24 Pulse Rate 113 H 08/07/21 16:24 Respiratory Rate 20 08/07/21 16:24 Blood Pressure 117/77 08/07/21 16:24 Pulse Oximetry 99 08/07/21 16:24 Temperature 97.9 F 01
[2021-08-08 01:23] LABS: SARS-CoV-2 RNA PCR Negative
== END 2021-08-07 19:56 | disposition home or self-care (01) ==
PROVIDERS: Emergency Medicine Emergency Medical Services; Emergency Provider Emergency Medicine; PCP Nurse Practitioner Family
DX: J06.9 Acute upper respiratory infection, unspecified (principal); Z20.822 Contact with and (suspected) exposure to COVID-19; E11.9 Type 2 diabetes mellitus without complications; Z79.84 Long term (current) use of oral hypoglycemic drugs; E78.5 Hyperlipidemia, unspecified; I10 Essential (primary) hypertension
CPT/HCPCS: 71045; 87804; 99283; C9803; U0003; U0005

== ENCOUNTER 2022-04-23 17:27 | Emergency (ER) | payer OTHER, SELFPAY ==
[2022-04-23 17:32] VITALS: BP 132/79; PULSE 100; RESP 16; TEMP 37.1; O2SAT 99
--- NOTE | 2022-04-23 17:41 | ED.EAR ---
HPI - Ear Problem General Chief complaint: Ear Stated complaint: Ear Pain Time Seen by Provider: 04/23/22 17:41 Source: patient, RN notes reviewed and old records reviewed Mode of arrival: ambulatory Limitations: no limitations History of Present Illness HPI Narrative: 57 year old female who presents to [facility] with complaints of bilateral ear pain since Thursday which has continued to worsen and some sore throat. Patient reports that she has been taking some Estrella and using OTC ear drops without improvement. Patient admits to scant amounts of nasal discharge which is clear, denies any acute fevers chills or sweats or any body aches. MD Complaint: ear pain and other (sore throat) Location: bilateral Duration: constant Severity: moderate Treatment prior to arrival: eardrops and other (Estrella) Related Data Home Medications Medication Instructions Recorded Confirmed gabapentin 300 mg capsule 300 mg PO TID 09/04/19 04/23/22 metformin 1,000 mg tablet 1,000 mg PO BID 09/04/19 04/23/22 semaglutide 0.25 mg or 0.5 mg (2 0.25 mg subcut WEEKLY 09/04/19 04/23/22 mg/1.5 mL) subcutaneous pen injector (Ozempic) atorvastatin 20 mg tablet 20 mg PO DAILY 04/23/22 04/23/22 cetirizine 10 mg tablet 10 mg PO DAILY 04/23/22 04/23/22 insulin glargine 100 unit/mL (3 20 unit subcut BID 04/23/22 04/23/22 mL) subcutaneous pen (Lantus Solostar U-100 Insulin) trazodone 50 mg tablet 50 mg PO DAILY 04/23/22 04/23/22 Allergies Allergy/AdvReac Type Severity Reaction Status Date / Time codeine AdvReac Unknown Unknown Verified 04/23/22 17:38 Review of Systems Review of Systems: CONSTITUTIONAL: Denies fever, chills, or sweats. EYES: Denies visual changes, redness, or discharge. ENT: reports scant rhinorrhea, congestion, positive for sore throat, bilateral ear otalgia. CARDIOVASCULAR: Denies chest pain, palpitations, or edema. RESPIRATORY: Denies cough or dyspnea. GASTROINTESTINAL: Denies abdominal pain, nausea, vomiting, or diarrhea. GENITOURINARY: Denies dysuria or hematuria. SKIN: Denies rash or itching. MUSCULOSKELETAL: Denies back pain, joint pain, or myalgia. NEUROLOGIC: Denies headache, numbness, or weakness. PSYCHIATRIC: Denies anxiety or depression. All systems reviewed & are unremarkable except as noted in HPI and below PMFSH Past Medical History Medical History Bronchitis Diabetes History of COVID-19 HLD (hyperlipidemia) HTN (hypertension) Peripheral neuropathy Surgical History Surgical History History of bilateral oophorectomy History of hysterectomy History of inguinal hernia repair As baby History of lumbar surgery L4-L5 fusion History of rotator cuff surgery lt rotator cuff, 2 screws History of tubal ligation Family History Family History Mother Hypertension Father Family history of diabetes mellitus in first degree relative Family history of coronary artery disease Social History Social History Smoking status: Never smoker Alcohol intake: never Gender identity (if verbalized by the patient): Female Comments At time of signature, agree with nursing past medical, surgical, social and family history. There is no relevant family history pertinent to the presenting complaint Exam Narrative: GENERAL: ill-appearing, well-nourished, and in no acute distress. HEAD: Normocephalic, atraumatic. EYES: PERRLA and EOMI. ENT: Nares clear, scant clear rhinorrhea no epistaxis. Mucous membranes moist.TM's dull with no redness noted bilateral ear pain verbalized, throat red with no exudates, tonsils swollen, NECK: Supple. lymphadenopathy CHEST: Clear to auscultation. No respiratory distress.SAO2 99% on room air HEART: Regular rate and rhythm. No murmur heard. Normal peripheral pulses. ABDOME
== END 2022-04-23 18:14 | disposition home or self-care (01) ==
PROVIDERS: Emergency Provider Registered Nurse; PCP Nurse Practitioner Family
DX: J02.0 Streptococcal pharyngitis (principal); E11.9 Type 2 diabetes mellitus without complications; E78.5 Hyperlipidemia, unspecified; I10 Essential (primary) hypertension; Z86.16 Personal history of COVID-19
CPT/HCPCS: 87880; 99213; G0463

== ENCOUNTER 2022-07-23 10:12 | Emergency (ER) | payer OTHER, SELFPAY ==
--- NOTE | 2022-07-23 10:18 | ED.URI ---
HPI - URI/Sore Throat General Chief Complaint: Upper Respiratory Infection Stated Complaint: Sore Throat/Cough Time Seen by Provider: 07/23/22 10:18 Source: patient and RN notes reviewed History of Present Illness HPI Narrative: patient is a 57-year-old female who presents to the Urgent Care with complaints of sore throat and cough since Thursday. Patient denies any fever, nausea, vomiting. Patient states she has taken 2 COVID test at home which were negative. Patient has been using Mucinex and cold and flu medication. No other acute complaints. No acute distress noted. Patient aware of the plan of care. Some parts of this dictation were generated by voice recognition software and may contain typographical and/or grammatical inaccuracies. Related Data Home Medications Medication Instructions Recorded Confirmed gabapentin 300 mg capsule 300 mg PO TID 09/04/19 04/23/22 metformin 1,000 mg tablet 1,000 mg PO BID 09/04/19 04/23/22 semaglutide 0.25 mg or 0.5 mg (2 0.25 mg subcut WEEKLY 09/04/19 04/23/22 mg/1.5 mL) subcutaneous pen injector (Ozempic) atorvastatin 20 mg tablet 20 mg PO DAILY 04/23/22 04/23/22 cetirizine 10 mg tablet 10 mg PO DAILY 04/23/22 04/23/22 insulin glargine 100 unit/mL (3 20 unit subcut BID 04/23/22 04/23/22 mL) subcutaneous pen (Lantus Solostar U-100 Insulin) trazodone 50 mg tablet 50 mg PO DAILY 04/23/22 04/23/22 Allergies Allergy/AdvReac Type Severity Reaction Status Date / Time codeine AdvReac Mild Nausea and Verified 07/23/22 10:39 Vomiting Review of Systems Review of Systems: CONSTITUTIONAL: Denies fever, chills, or sweats. EYES: Denies visual changes, redness, or discharge. ENT: Denies rhinorrhea, congestion, otalgia. Reports of sore throat CARDIOVASCULAR: Denies chest pain, palpitations, or edema. RESPIRATORY: reports of cough with dyspnea GASTROINTESTINAL: Denies abdominal pain, nausea, vomiting, or diarrhea. GENITOURINARY: Denies dysuria or hematuria. SKIN: Denies rash or itching. MUSCULOSKELETAL: Denies back pain, joint pain, or myalgia. NEUROLOGIC: Denies headache, numbness, or weakness. All other systems reviewed are negative, except as documented in HPI. [facility] Past Medical History Medical History Bronchitis Diabetes History of COVID-19 HLD (hyperlipidemia) HTN (hypertension) Peripheral neuropathy Surgical History Surgical History History of bilateral oophorectomy History of hysterectomy History of inguinal hernia repair As baby History of lumbar surgery L4-L5 fusion History of rotator cuff surgery lt rotator cuff, 2 screws History of tubal ligation Family History Family History Mother Hypertension Father Family history of diabetes mellitus in first degree relative Family history of coronary artery disease Social History Social History Smoking status: Never smoker Alcohol intake: never Gender identity (if verbalized by the patient): Female Comments At the time of my signature, I reviewed and agree with the nursing past medical, surgical, social, and family history. There is no relevant family history pertinent to the patient complaint. Exam Narrative: GENERAL: This is a well-nourished, well-developed patient, in no apparent distress. HEAD: normocephalic, atraumatic. EYES: PERRL. Sclera clear/white. Vision is grossly intact. EARS: External ears normal, auditory canals clear and without drainage, TMs normal without perforation. Hearing grossly intact. NOSE: External nose normal with no obvious nasal discharge, nares without redness, Clear rhinorrhea. THROAT: Mucous membranes moist . Moderate erythema to posterior oropharynx with moderate postnasal drainage. NECK: Neck supple, non-tender without lymphadenopath
[2022-07-23 10:21] VITALS: BP 125/77; PULSE 96; RESP 16; TEMP 36.9; O2SAT 100
== END 2022-07-23 10:53 | disposition home or self-care (01) ==
PROVIDERS: Emergency Provider Nurse Practitioner Family; PCP Nurse Practitioner Family
DX: J02.9 Acute pharyngitis, unspecified (principal); I10 Essential (primary) hypertension; E78.5 Hyperlipidemia, unspecified; E11.42 Type 2 diabetes mellitus with diabetic polyneuropathy; Z79.4 Long term (current) use of insulin
CPT/HCPCS: 87081; 87880; 99213; G0463

== ENCOUNTER 2022-09-10 20:53 | Emergency (ER) | payer OTHER, SELFPAY ==
[2022-09-10 21:18] VITALS: BP 146/89; PULSE 96; RESP 18; TEMP 37; O2SAT 99
--- NOTE | 2022-09-10 21:28 | ED.EAR ---
HPI - Ear Problem General Chief complaint: Ear Stated complaint: cold, congestion, unbearable pain in ear Source: patient Mode of arrival: ambulatory Limitations: no limitations History of Present Illness HPI Narrative: 57-year-old female with a history of diabetes mellitus, hypertension, dyslipidemia presents to the ER with -- one-week history of cough with mucopurulent sputum. Patient is a nonsmoker -- left ear pain since today afternoon. No discharge no fever. No nausea/vomiting / diarrhea. MD Complaint: ear pain Location: left ear Duration: constant Severity: severe Relieving factors: nothing Exacerbating factors: nothing Discharge from ear: Reports no Associated symptoms ear: decreased hearing Treatment prior to arrival: none Related Data Home Medications Medication Instructions Recorded Confirmed gabapentin 300 mg capsule 300 mg PO TID 09/04/19 09/10/22 metformin 1,000 mg tablet 1,000 mg PO BID 09/04/19 09/10/22 semaglutide 0.25 mg or 0.5 mg (2 0.25 mg subcut WEEKLY 09/04/19 09/10/22 mg/1.5 mL) subcutaneous pen injector (Ozempic) atorvastatin 20 mg tablet 20 mg PO DAILY 04/23/22 09/10/22 cetirizine 10 mg tablet 10 mg PO DAILY 04/23/22 09/10/22 insulin glargine 100 unit/mL (3 20 unit subcut BID 04/23/22 09/10/22 mL) subcutaneous pen (Lantus Solostar U-100 Insulin) trazodone 50 mg tablet 50 mg PO DAILY 04/23/22 09/10/22 Allergies Allergy/AdvReac Type Severity Reaction Status Date / Time codeine AdvReac Mild Nausea and Verified 07/23/22 10:39 Vomiting Review of Systems Review of Systems: All systems reviewed & are unremarkable except as noted in HPI and below Constitutional: Constitutional: Reports as per HPI and Reports no additional constitutional complaints Eyes: Eyes: Reports as per HPI and Reports no additional eye complaints ENT: Reports system reviewed and no additional complaints, except as documented and Reports nasal congestion Comments: Left ear pain Cardiovascular: Cardiovascular: Reports as per HPI and Reports no additional cardiovascular complaints Respiratory: Respiratory: Reports as per HPI, Reports no additional respiratory complaints and Reports cough Comments: cough with mucopurulent sputum Gastrointestinal: Gastrointestinal: Reports as per HPI and Reports no additional gastrointestinal complaints Genitourinary: Genitourinary: Reports no additional female genitourinary complaints and Reports as per HPI Musculoskeletal: Musculoskeletal: Reports no additional musculoskeletal complaints and Reports as per HPI Integumentary/Breasts: Skin/Breast: Reports system reviewed and no additional complaints, except as docu and Reports as per HPI Neurologic: Reports system reviewed and no additional complaints, except as documented and Reports as per HPI Psychiatric: Psychiatric: Reports no additional psychiatric complaints and Reports as per HPI Endocrine: Endocrine: Reports no additional endocrine complaints and Reports as per HPI Hematologic/Lymphatic: Hematologic/Lymphatic: Reports no additional hematologic/lymphatic complaints and Reports as per HPI Allergic/Immunologic: Allergic/Immunologic: Reports no additional allergic/immunologic complaints and Reports as per HPI PMFSH Past Medical History Medical History Bronchitis Diabetes History of COVID-19 HLD (hyperlipidemia) HTN (hypertension) Peripheral neuropathy Surgical History Surgical History History of bilateral oophorectomy History of hysterectomy History of inguinal hernia repair As baby History of lumbar surgery L4-L5 fusion History of rotator cuff surgery lt rotator cuff, 2 screws History of tubal ligation Family History Family History Mother Hypertension Father Family history of diabetes mellitus in first degree relative
[2022-09-10] MEDS: KETOROLAC 30 MG/ML VIAL (*BKC) IM (21:45)
[2022-09-10 21:56] LABS: Basophils Absolute Auto 0.04 K/mm3 (0.00-0.10); Basophils Percent Auto 0.5 % (0.0-1.0); Eosinophils Percent Auto 5.2 % (1.0-6.0); Hematocrit 37.3 % (35.0-49.0); Hemoglobin 12.7 g/dL (12.0-15.0); Immature Granulocyte Absolute 0.02 K/mm3 (0.00-0.00); Immature Granulocyte Percent A 0.3 % (0.0-0.0); Lymphocytes Absolute Auto 2.63 K/mm3 (1.10-4.50); Lymphocytes Percent Auto 34.2 % (18.0-42.0); Mean Corpuscular Hemoglobin 29.5 pg (27.0-31.0); Mean Corpuscular Volume 86.5 fL (78.0-102.0); Mean Platelet Volume 9.3 fl (9.2-11.8); Monocytes Absolute Auto 0.68 K/mm3 (0.10-0.90); Monocytes Percent Auto 8.8 % (2.0-11.0); Neutrophils Absolute Auto 3.9 K/mm3 (1.7-7.2); Platelet Count Result 336 K/mm3 (150-420); Red Blood Count 4.31 M/mm3 (4.20-5.40); Red Cell Distribution Width 12.9 % (11.6-14.4); White Blood Count 7.7 K/mm3 (4.8-10.8)
[2022-09-10 22:11] LABS: INR 0.9; Partial Thromboplastin Time 25.5 SEC (23.90-30.70)
[2022-09-10] MEDS: HYDROmorphone HCL INJ (*CRX) 2 MG/ML VIAL 0.5 MG IM (22:19)
[2022-09-10] MEDS: ONDANSETRON HCL ODT 4 MG TABLET PO (22:20)
[2022-09-10 22:32] LABS: Influenza A QL RT-PCR Negative (Negative); Influenza B QL RT-PCR Negative (Negative); SARS-CoV-2 RNA PCR Negative (Negative)
[2022-09-10 22:41] LABS: RSV RNA, RT-PCR Negative (Negative)
[2022-09-10 22:56] LABS: Alanine Aminotransferase 28 U/L (14-59); Albumin Level 3.9 g/dL (3.4-5.0); Alkaline Phosphatase 73 U/L (46-116); Anion Gap 6 mmol/L (8-16); Aspartate Amino Transferase 24 U/L (15-37); Bilirubin,Total 0.3 mg/dL (0.00-1.00); Blood Urea Nitrogen 12 mg/dL (7-18); Calcium 9.1 mg/dL (8.5-10.1); Carbon Dioxide 30 mmol/L (21-32); Chloride 100 mmol/L (98-108); Estimated CRCL calculation 56 ml/min; Estimated Glomerular Filt Rate > 60; Glucose 144 mg/dL (70-99); Osmolality Calculated 284 mOsm/kg (285-295); Potassium 3.9 mmol/L (3.5-5.1); Sodium 136 mmol/L (136-145); Total Protein 7.7 g/dL (6.4-8.2); Troponin I 4.6 ng/L (0.00-60.4)
[2022-09-10] MEDS: AMOXICILLIN/CLAVULANATE K 875-125 MG TAB 1 TABLET PO (23:33)
[2022-09-10 23:35] VITALS: BP 130/89; PULSE 78; RESP 18; TEMP 36.6; O2SAT 98
== END 2022-09-10 23:36 | disposition home or self-care (01) ==
PROVIDERS: Emergency Provider Internal Medicine Critical Care Medicine; PCP Nurse Practitioner Family
DX: H66.92 Otitis media, unspecified, left ear (principal); J40 Bronchitis, not specified as acute or chronic; J06.9 Acute upper respiratory infection, unspecified; E11.9 Type 2 diabetes mellitus without complications; I10 Essential (primary) hypertension; E78.5 Hyperlipidemia, unspecified; Z79.4 Long term (current) use of insulin; Z20.822 Contact with and (suspected) exposure to COVID-19
CPT/HCPCS: 36415; 80053; 84484; 85025; 85610; 85730; 87637; 96372; 99284; A9270; J1170; J1885

== ENCOUNTER 2022-09-26 19:23 | Emergency (ER) | payer OTHER, SELFPAY ==
[2022-09-26 19:27] VITALS: BP 139/78; PULSE 91; RESP 18; TEMP 36.9; O2SAT 99
[2022-09-26 19:38] VITALS: BP 139/78; PULSE 91; RESP 18; TEMP 36.9; O2SAT 99
--- NOTE | 2022-09-26 19:44 | ED.EAR ---
HPI - Ear Problem General Chief complaint: Ear Stated complaint: Left ear pain; Time Seen by Provider: 09/26/22 19:45 Source: patient, RN notes reviewed and old records reviewed Mode of arrival: ambulatory Limitations: no limitations History of Present Illness HPI Narrative: 57-year-old female who presents [facility] bilateral ear pain with left ear most painful. Patient was given an antibiotic on 09/11 for ear infection and completed all doses of the medication. She has been taking Zyrtec, Tylenol,Ibuprofen and DayQuil for sinus congestion and also her pain. Patient reports that her left ear pain is painful rates it 6-7 ache constant with decreased hearing MD Complaint: ear pain and decreased hearing Location: bilateral Discharge from ear: Reports no Treatment prior to arrival: oral analgesic and other (completed antibiotics ) Related Data Home Medications Medication Instructions Recorded Confirmed gabapentin 300 mg capsule 300 mg PO TID 09/04/19 09/26/22 metformin 1,000 mg tablet 1,000 mg PO BID 09/04/19 09/26/22 semaglutide 0.25 mg or 0.5 mg (2 0.25 mg subcut WEEKLY 09/04/19 09/26/22 mg/1.5 mL) subcutaneous pen injector (Ozempic) atorvastatin 20 mg tablet 20 mg PO DAILY 04/23/22 09/26/22 cetirizine 10 mg tablet 10 mg PO DAILY 04/23/22 09/26/22 insulin glargine 100 unit/mL (3 20 unit subcut BID 04/23/22 09/26/22 mL) subcutaneous pen (Lantus Solostar U-100 Insulin) trazodone 50 mg tablet 50 mg PO DAILY 04/23/22 09/26/22 Allergies Allergy/AdvReac Type Severity Reaction Status Date / Time codeine AdvReac Mild Nausea and Verified 07/23/22 10:39 Vomiting Review of Systems Review of Systems: CONSTITUTIONAL: Denies malaise, chills, sweats, or fever. EYES: Denies visual changes, redness, or discharge. ENT: Reports rhinorrhea, congestion, sinus pain, otalgia no sore throat. CARDIOVASCULAR: Denies chest pain, palpitations, or edema. RESPIRATORY: Reports no cough.? Denies dyspnea. GASTROINTESTINAL: Denies abdominal pain, nausea, vomiting, diarrhea SKIN: Denies rash or itching. MUSCULOSKELETAL: Denies myalgia. NEUROLOGIC: Denies headache. All systems reviewed & are unremarkable except as noted in HPI and below PMFSH Past Medical History Medical History Bronchitis Diabetes History of COVID-19 HLD (hyperlipidemia) HTN (hypertension) Peripheral neuropathy Surgical History Surgical History History of bilateral oophorectomy History of hysterectomy History of inguinal hernia repair As baby History of lumbar surgery L4-L5 fusion History of rotator cuff surgery lt rotator cuff, 2 screws History of tubal ligation Family History Family History Mother Hypertension Father Family history of diabetes mellitus in first degree relative Family history of coronary artery disease Social History Social History Smoking status: Never smoker Alcohol intake: never Gender identity (if verbalized by the patient): Female Comments At time of signature, agree with nursing past medical, surgical, social and family history. There is no relevant family history pertinent to the presenting complaint Exam Narrative: GENERAL: Well-appearing, well-nourished, and in no acute distress. HEAD: Normocephalic EYES: PERRLA, conjunctivae clear ENT: Nares clear, turbinates edematous and erythematous, clear discharge. Mucous membranes moist.Left TM red and painful, Right TM normal pearly ly with normal light reflex, Left TM red and bulging; no tragal tenderness. Oropharynx erythematous without lesions. Tonsils not enlarged and without exudate, no drooling, no hoarseness, no trismus, uvula midline.post nasal drainage. NECK: Supple. No lymphadenopathy CHEST: Clear to
== END 2022-09-26 20:10 | disposition home or self-care (01) ==
PROVIDERS: Emergency Provider Registered Nurse; PCP Nurse Practitioner Family
DX: H66.92 Otitis media, unspecified, left ear (principal); E78.5 Hyperlipidemia, unspecified; I10 Essential (primary) hypertension; E11.42 Type 2 diabetes mellitus with diabetic polyneuropathy; Z86.16 Personal history of COVID-19; Z79.84 Long term (current) use of oral hypoglycemic drugs; Z79.4 Long term (current) use of insulin
CPT/HCPCS: 99213; G0463

== ENCOUNTER 2022-11-22 13:06 | Emergency (ER) | payer OTHER, SELFPAY ==
[2022-11-22 13:17] VITALS: BP 133/84; PULSE 85; RESP 18; TEMP 37.1; O2SAT 100
--- NOTE | 2022-11-22 14:08 | ED.GENADULT ---
HPI - General Adult General Chief complaint: Urogenital-Female Stated complaint: Urinary Problem Source: patient Mode of arrival: ambulatory Limitations: no limitations History of Present Illness HPI narrative: Patient presents for evaluation of urinary symptoms for last 5 days. Symptoms include dysuria, urinary urgency, frequency, hesitancy, and dribbling. She also reports suprapubic pain, low back pain, and nausea. No fevers or vomiting. She has had urinary tract infections in the past. This feels similar. She tried cranberry juice and Azo with minimal improvement in her symptoms or after. Related Data Home Medications Medication Instructions Recorded Confirmed gabapentin 300 mg capsule 300 mg PO TID 09/04/19 11/22/22 metformin 1,000 mg tablet 1,000 mg PO BID 09/04/19 11/22/22 atorvastatin 20 mg tablet 20 mg PO DAILY 04/23/22 11/22/22 cetirizine 10 mg tablet 10 mg PO DAILY 04/23/22 11/22/22 insulin glargine 100 unit/mL (3 20 unit subcut BID 04/23/22 11/22/22 mL) subcutaneous pen (Lantus Solostar U-100 Insulin) trazodone 50 mg tablet 50 mg PO DAILY 04/23/22 11/22/22 semaglutide 1 mg/dose (4 mg/3 mL) See Rx Instructions .Route .COMPLEX 11/22/22 11/22/22 subcutaneous pen injector (Ozempic) Allergies Allergy/AdvReac Type Severity Reaction Status Date / Time codeine AdvReac Mild Nausea and Verified 11/22/22 13:46 Vomiting Review of Systems Review of Systems: CONSTITUTIONAL: Denies fever, chills, or sweats. EYES: Denies visual changes, redness, or discharge. ENT: Denies rhinorrhea, congestion, sore throat, or otalgia. CARDIOVASCULAR: Denies chest pain, palpitations, or edema. RESPIRATORY: Denies cough or dyspnea. GASTROINTESTINAL: Reports nausea. denies abdominal pain, vomiting, or diarrhea. GENITOURINARY: Reports dysuria, urinary frequency, urgency, hesitancy, dribbling, and suprapubic discomfort SKIN: Denies rash or itching. MUSCULOSKELETAL: Reports low back pain. Denies myalgias. NEUROLOGIC: Denies headache, numbness, dizziness, or weakness. PSYCHIATRIC: Denies anxiety or depression. [facility] Past Medical History Medical History Bronchitis Diabetes History of COVID-19 HLD (hyperlipidemia) HTN (hypertension) Peripheral neuropathy Surgical History Surgical History History of bilateral oophorectomy History of hysterectomy History of inguinal hernia repair As baby History of lumbar surgery L4-L5 fusion History of rotator cuff surgery lt rotator cuff, 2 screws History of tubal ligation Family History Family History Mother Hypertension Father Family history of diabetes mellitus in first degree relative Family history of coronary artery disease Social History Social History Smoking status: Never smoker Alcohol intake: never Gender identity (if verbalized by the patient): Female Exam Narrative: GENERAL: Well-appearing, well-nourished, and in no acute distress. HEAD: Normocephalic, atraumatic. EYES: PERRLA and EOMI. ENT: Nares clear, no rhinorrhea or epistaxis. Mucous membranes moist. Oropharynx without tonsillar hypertrophy exudate or other lesions. Bilateral TMs pearly ly nonbulging NECK: Supple. No adenopathy or masses. No carotid bruits or JVD CHEST: Clear to auscultation. No respiratory distress. No wheezes rales or rhonchi HEART: Regular rate and rhythm. No murmur heard. Normal peripheral pulses. ABDOMEN: Soft, mild suprapubic tenderness without rebound or guarding. Normal active bowel sounds. EXTREMITIES: Normal range of motion. No edema. SKIN: Warm, dry, no rash. NEURO: No focal deficits. Alert and oriented x3. PSYCH: Normal mood and affect. Course Course Emergency Course: This is a 57-year-old female who p
== END 2022-11-22 14:10 | disposition home or self-care (01) ==
PROVIDERS: Emergency Provider Nurse Practitioner; PCP Nurse Practitioner Family
DX: N39.0 Urinary tract infection, site not specified (principal); E78.5 Hyperlipidemia, unspecified; I10 Essential (primary) hypertension; E11.42 Type 2 diabetes mellitus with diabetic polyneuropathy; Z86.16 Personal history of COVID-19
CPT/HCPCS: 81003; 87077; 87086; 87186; 99213; G0463

== ENCOUNTER 2023-02-09 11:34 | Emergency (ER) | payer OTHER, SELFPAY ==
[2023-02-09 11:39] VITALS: BP 139/81; PULSE 101; RESP 20; TEMP 36.6; O2SAT 98
[2023-02-09] MEDS: SODIUM CHLORIDE 0.9% IV 1,000 ML 999 ML IV CONT (12:08)
[2023-02-09] MEDS: ONDANSETRON INJ 4 MG/2 ML VIAL 8 MG IV PUSH (12:10)
[2023-02-09] MEDS: KETOROLAC 30 MG/ML VIAL (*BKC) IV PUSH (12:10)
[2023-02-09 12:11] LABS: Basophils Absolute Auto 0.03 K/mm3 (0.00-0.10); Basophils Percent Auto 0.3 % (0.0-1.0); Eosinophils Absolute Auto 0.21 K/mm3 (0.02-0.50); Eosinophils Percent Auto 2.3 % (1.0-6.0); Hematocrit 35.6 % (35.0-49.0); Hemoglobin 12.4 g/dL (12.0-15.0); Immature Granulocyte Absolute 0.03 K/mm3 (0.00-0.00); Immature Granulocyte Percent A 0.3 % (0.0-0.0); Lymphocytes Absolute Auto 1.89 K/mm3 (1.10-4.50); Lymphocytes Percent Auto 20.5 % (18.0-42.0); Mean Corpuscular HGB Conc 34.8 g/dL (32.0-36.0); Mean Corpuscular Hemoglobin 29.1 pg (27.0-31.0); Mean Corpuscular Volume 83.6 fL (78.0-102.0); Mean Platelet Volume 9.7 fl (9.2-11.8); Monocytes Percent Auto 8.7 % (2.0-11.0); Neutrophils Absolute Auto 6.3 K/mm3 (1.7-7.2); Neutrophils Percent Auto 67.9 % (50.0-70.0); Platelet Count Result 264 K/mm3 (150-420); Red Blood Count 4.26 M/mm3 (4.20-5.40); Red Cell Distribution Width 11.9 % (11.6-14.4); White Blood Count 9.2 K/mm3 (4.8-10.8)
[2023-02-09] MEDS: diphenhydrAMINE HCl INJ 50 MG/ML VIAL 25 MG IV PUSH (12:11)
[2023-02-09 12:12] LABS: Appearance Urine Clear (Clear); Bilirubin Urine Negative (Negative); Blood Urine 3+ (Negative); Color Urine Yellow (Yellow); Glucose Urine UA Negative (Negative); Ketones Urine Negative (Negative); Leukocyte Esterase Ur 3+ LEU/UL (Negative); Nitrate Urine Positive (Negative); Protein Urine 1+ (Negative)
[2023-02-09 12:18] LABS: Add Urine Microscopic? YES; Squamous Epithelial Cell Urine Rare /hpf (Few); WBC Urine 31-50 /hpf (0-3)
[2023-02-09 12:19] LABS: Bacteria Urine 3+ /hpf
[2023-02-09 12:22] LABS: Magnesium 1.7 mg/dL (1.8-2.4)
[2023-02-09 12:26] LABS: Alanine Aminotransferase 30 U/L (14-59); Alkaline Phosphatase 81 U/L (46-116); Anion Gap 9 mmol/L (8-16); Aspartate Amino Transferase 18 U/L (15-37); Bilirubin,Total 0.6 mg/dL (0.00-1.00); Calcium 9.1 mg/dL (8.5-10.1); Carbon Dioxide 26 mmol/L (21-32); Chloride 102 mmol/L (98-108); Estimated CRCL calculation 56 ml/min; Estimated Glomerular Filt Rate > 60; Glucose 156 mg/dL (70-99); Lipase 41 U/L (16-77); Potassium 3.7 mmol/L (3.5-5.1); Sodium 137 mmol/L (136-145); Total Protein 7.7 g/dL (6.4-8.2)
[2023-02-09 12:28] LABS: Lactic Acid Reflex 0.5 mmol/L (0.4-2.0)
[2023-02-09 12:32] LABS: Albumin Level 3.8 g/dL (3.4-5.0); Blood Urea Nitrogen 14 mg/dL (7-18); Osmolality Calculated 287 mOsm/kg (285-295)
--- NOTE | 2023-02-09 13:02 | ED.GENADULT ---
HPI - General Adult General Chief complaint: Urogenital-Female Stated complaint: lower back pain/pain urinating Time Seen by Provider: 02/09/23 11:47 History of Present Illness HPI narrative: 57yo woman with h/o recurrent UTI presents with sudden onset nausea, vomiting overnight with pain to her right flank, suprapubic area and pain with urination. Since vomiting her epigastric area hurts as well. No chest pain, dyspnea, fevers, chills, diarrhea, black or bloody stool. Related Data Home Medications Medication Instructions Recorded Confirmed gabapentin 300 mg capsule 300 mg PO TID 09/04/19 02/09/23 atorvastatin 20 mg tablet 20 mg PO DAILY 04/23/22 02/09/23 cetirizine 10 mg tablet 10 mg PO DAILY 04/23/22 02/09/23 insulin glargine 100 unit/mL (3 20 unit subcut BID 04/23/22 02/09/23 mL) subcutaneous pen (Lantus Solostar U-100 Insulin) trazodone 50 mg tablet 50 mg PO DAILY 04/23/22 02/09/23 semaglutide 1 mg/dose (4 mg/3 mL) See Rx Instructions .Route .COMPLEX 11/22/22 02/09/23 subcutaneous pen injector (Ozempic) Allergies Allergy/AdvReac Type Severity Reaction Status Date / Time codeine AdvReac Mild Nausea and Verified 02/09/23 11:56 Vomiting Review of Systems Review of Systems: All systems reviewed & are unremarkable except as noted in HPI and below Constitutional: Constitutional: Denies chills and Denies fever(s) ENT: Denies dysphagia Cardiovascular: Cardiovascular: Denies chest pain Respiratory: Respiratory: Denies chest congestion and Denies dyspnea PMFSH Past Medical History Medical History Bronchitis Diabetes History of COVID-19 HLD (hyperlipidemia) HTN (hypertension) Peripheral neuropathy Surgical History Surgical History History of bilateral oophorectomy History of hysterectomy History of inguinal hernia repair As baby History of lumbar surgery L4-L5 fusion History of rotator cuff surgery lt rotator cuff, 2 screws History of tubal ligation Family History Family History Mother Hypertension Father Family history of diabetes mellitus in first degree relative Family history of coronary artery disease Social History Social History Smoking status: Never smoker Alcohol intake: never Gender identity (if verbalized by the patient): Female Exam Const: General: healthy appearing and no acute distress Nutritional Appearance: well nourished Eyes: Conjunctivae: conjunctivae normal Resp: Effort & Inspection: normal respiratory effort and not labored Cardio: Rate: regular rate GI: Inspection: non-distended GI Palp: Yes Soft to palpation and No Tenderness to palpation present (GI) Skin: General skin exam: normal color Course Vital Signs Vital signs: Vital Signs Temperature 36.6 C 02/09/23 11:39 Pulse Rate 101 H 02/09/23 11:39 Respiratory Rate 02/09/23 11:39 Blood Pressure 139/81 02/09/23 11:39 Pulse Oximetry 98 02/09/23 11:39 Oxygen Delivery Room Air 02/09/23 11:39 Temperature 36.6 C 02/09/23 11:39 Pulse Rate 101 H 02/09/23 11:39 Respiratory Rate 02/09/23 11:39 Blood Pressure 139/81 02/09/23 11:39 Pulse Oximetry 98 02/09/23 11:39 Oxygen Delivery Room Air 02/09/23 11:39 Medical Decision Making MDM Narrative Medical decision making narrative: nausea and flank pain with dysuria DDx likely acute cystitis, also consider pyelonephritis, renal colic, gastritis, early gastroenteritis, indigestion. Vital Signs Vital Signs: Vital Signs Temperature 36.6 C 02/09/23 11:39 Pulse Rate 101 H 02/09/23 11:39 Respiratory Rate 02/09/23 11:39 Blood Pressure 139/81 02/09/23 11:39 Pulse Oximetry 98 02/09/23 11:39 Oxygen Delivery Room Air 02/09/23 11:39 Temperature 36
[2023-02-09 13:16] VITALS: BP 138/78; PULSE 88; RESP 20; TEMP 36.6; O2SAT 98
--- NOTE | 2023-02-11 13:43 | PC.NURSE ---
final urine culture report reviewed, >100,000 E. coli, susceptible to cephalexin, pt prescribed cephalexin at discharge. no change in plan of care.
== END 2023-02-09 13:22 | disposition home or self-care (01) ==
PROVIDERS: Emergency Provider Emergency Medicine
DX: N30.00 Acute cystitis without hematuria (principal); E78.5 Hyperlipidemia, unspecified; I10 Essential (primary) hypertension; E11.9 Type 2 diabetes mellitus without complications; Z79.4 Long term (current) use of insulin
CPT/HCPCS: 36415; 80053; 81001; 83605; 83690; 83735; 85025; 87077; 87086; 87088; 87186; 96361; 96374; 96375; 99284; J1200; J1885; J2405; J7030

== ENCOUNTER 2023-07-01 20:49 | Emergency (ER) | payer OTHER, SELFPAY ==
--- NOTE | ~2023-07-01 | XR_ITS ---
EXAM: XR foot LT min 3V DATE: 07/01/2023 21:13 HISTORY: heel pain X 1 WEEK/NO TRAUMA . COMPARISON: 04/04/2019. FINDINGS: Normal mineralization. No fracture or dislocation. No lytic or blastic lesion. Joint space s are maintained. Moderate Achilles and plantar enthesopathy. No erosion or periosteal change. Soft t issues within normal limits. IMPRESSION: No acute osseous abnormalities the left foot. Reviewed, dictated and finalized at location K. BILITATION SERVICES AIDE
--- NOTE | 2023-07-01 20:54 | ED.EXTPRO ---
HPI - Extremity Problem General Chief complaint: Extremity Problem,Nontraumatic Stated complaint: foot pain Source: patient Mode of arrival: ambulatory Limitations: no limitations History of Present Illness HPI Narrative: 58-year-old female with a history of hypertension, dyslipidemia, diabetes mellitus, peripheral neuropathy, back pain status post lumbar surgery presents to the ER with a one-week history of -- left foot pain- localized to the left heel. Pain is worse on walking. No trauma. 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 She is on her feet most of the day and carries heavy objects. MD Complaint: extremity pain Onset (ago): week(s) ( One week) Pain Consistency: constant Location: left and other ( heel) Quality: aching Radiation: none Exacerbating factors: weight bearing Associated symptoms: denies other symptoms Related Data Home Medications Medication Instructions Recorded Confirmed gabapentin 300 mg capsule 300 mg PO TID 09/04/19 07/01/23 cetirizine 10 mg tablet 10 mg PO DAILY 04/23/22 07/01/23 trazodone 50 mg tablet 50 mg PO DAILY 04/23/22 07/01/23 Allergies Allergy/AdvReac Type Severity Reaction Status Date / Time codeine AdvReac Mild Nausea and Verified 07/01/23 20:55 Vomiting Review of Systems Review of Systems: All systems reviewed & are unremarkable except as noted in HPI and below Constitutional: Constitutional: Reports as per HPI and Reports no additional constitutional complaints Eyes: Eyes: Reports as per HPI and Reports no additional eye complaints ENT: Reports system reviewed and no additional complaints, except as documented and Reports as per HPI Cardiovascular: Cardiovascular: Reports as per HPI and Reports no additional cardiovascular complaints Respiratory: Respiratory: Reports as per HPI and Reports no additional respiratory complaints Gastrointestinal: Gastrointestinal: Reports as per HPI and Reports no additional gastrointestinal complaints Genitourinary: Genitourinary: Reports no additional female genitourinary complaints and Reports as per HPI Musculoskeletal: Musculoskeletal: Reports no additional musculoskeletal complaints and Reports as per HPI Comments: left heel pain which is worse on weight-bearing. When she attempts to walk on her toes she has pain over the metatarsal heads Integumentary/Breasts: Skin/Breast: Reports system reviewed and no additional complaints, except as docu and Reports as per HPI Neurologic: Reports system reviewed and no additional complaints, except as documented and Reports as per HPI Psychiatric: Psychiatric: Reports no additional psychiatric complaints and Reports as per HPI Endocrine: Endocrine: Reports no additional endocrine complaints and Reports as per HPI Hematologic/Lymphatic: Hematologic/Lymphatic: Reports no additional hematologic/lymphatic complaints and Reports as per HPI Allergic/Immunologic: Allergic/Immunologic: Reports no additional allergic/immunologic complaints and Reports as per HPI [facility] Past Medical History Medical History Bronchitis Diabetes History of COVID-19 HLD (hyperlipidemia) HTN (hypertension) Peripheral neuropathy Surgical History Surgical History History of bilateral oophorectomy History of hysterectomy History of inguinal hernia repair As baby History of lumbar surgery L4-L5 fusion History of rotator cuff surgery lt rotator cuff, 2 screws History of tubal ligation Family History Family History Mother Hypertension Father Family history of diabetes mellitus in first degree relative Family history of coronary artery disease Social History Social History Smoking status: Never smoker Alcohol intake: never Gender identity (if verbalized by the pa
[2023-07-01 20:55] VITALS: BP 158/91; PULSE 89; RESP 18; TEMP 36.8; O2SAT 99
[2023-07-01 21:57] VITALS: BP 144/73; PULSE 84; RESP 18; O2SAT 98
== END 2023-07-01 22:04 | disposition home or self-care (01) ==
PROVIDERS: Emergency Provider Internal Medicine Critical Care Medicine; PCP Nurse Practitioner Family
DX: M79.672 Pain in left foot (principal); I10 Essential (primary) hypertension; E78.5 Hyperlipidemia, unspecified; E11.9 Type 2 diabetes mellitus without complications; Z79.899 Other long term (current) drug therapy
CPT/HCPCS: 73630; 99283

== ENCOUNTER 2023-07-29 13:04 | Outpatient (CLI) | payer OTHER, SELFPAY ==
--- NOTE | ~2023-07-29 | XR_ITS ---
Left Hand Technique: PA, oblique, and lateral views were obtained. Clinical History: Pain Findings: No acute fracture or dislocation is seen. Osseous alignment is anatomic. Joint spaces are p reserved. Soft tissues are unremarkable. Impression: Unremarkable left hand. Reviewed, dictated and finalized at location M. IFIER OPERATOR HELPER Impression: Unremarkable left hand.
--- NOTE | ~2023-07-29 | XR_ITS ---
Right Hand Technique: PA, oblique, and lateral views were obtained. Clinical History: Pain Findings: No acute fracture or dislocation is seen. Osseous alignment is anatomic. Joint spaces are p reserved. Soft tissues are unremarkable. Impression: Unremarkable right hand. Reviewed, dictated and finalized at location M. LA TAPPER Impression: Unremarkable right hand.
== END 2023-07-29 13:05 | disposition home or self-care (01) ==
PROVIDERS: PCP Nurse Practitioner Family; Visit Provider Nurse Practitioner Family
DX: M79.644 Pain in right finger(s) (principal); M79.645 Pain in left finger(s)
CPT/HCPCS: 73130

== ENCOUNTER 2023-09-09 12:57 | Outpatient (CLI) | payer OTHER, SELFPAY ==
--- NOTE | 2023-09-09 14:30 | NEURO_ITS ---
Impression: # Diabetic over 5 years complains of pain/numbness of hands, left more than right. # Moderate left Carpal Tunnel Syndrome. # Mild right Carpal Tunnel Syndrome. # No ulnar neuropathy. # Mildly abnormal Needle/EMG exam. Nerve Conduction Studies Anti Sensory Summary Table Stim Site NR Peak (ms) P-T Amp (?V) Site1 Site2 Delta-P (ms) Dist (cm) Reginald (m/s) Left Median Anti Sensory (2-3nd Digit) Wrist 6.0 13.0 Wrist 2-3nd Digit 6.0 14.0 23 Wrist 6.3 10.4 Wrist 2-3nd Digit 6.0 14.0 23 Right Median Anti Sensory (2-3nd Digit) NO RESPONSE Wrist 3.4 19.5 Wrist 2-3nd Digit 3.4 14.0 41 Wrist NR Wrist 2-3nd Digit 3.4 14.0 41 Left Radial Anti Sensory (Base 1st Digit) Wrist 2.0 16.9 Wrist Base 1st Digit 2.0 0.0 Right Radial Anti Sensory (Base 1st Digit) Wrist 2.3 13.8 Wrist Base 1st Digit 2.3 0.0 Left Ulnar Anti Sensory (5th Digit) Wrist 2.6 71.1 Wrist 5th Digit 2.6 14.0 54 Right Ulnar Anti Sensory (5th Digit) Wrist 2.4 40.9 Wrist 5th Digit 2.4 14.0 58 Motor Summary Table Stim Site NR Onset (ms) O-P Amp (mV) Site1 Site2 Delta-0 (ms) Dist (cm) Reginald (m/s) Left Median Motor (Abd Poll Brev) Wrist 6.3 3.5 Elbow Wrist 4.2 26.0 62 Elbow 10.5 4.4 Right Median Motor (Abd Poll Brev) Wrist 3.7 0.5 Elbow Wrist 4.4 26.0 59 Elbow 8.1 1.1 Left Ulnar Motor (Abd Dig Minimi) Wrist 2.7 6.8 A Elbow Wrist 4.9 29.0 59 A Elbow 7.6 5.4 Right Ulnar Motor (Abd Dig Minimi) Wrist 2.2 4.4 A Elbow Wrist 4.8 28.0 58 A Elbow 7.0 3.3 F Wave Studies NR F-Lat (ms) L-R F-Lat (ms) Left Median (Mrkrs) (Abd Poll Brev) 26.59 1.16 Right Median (Mrkrs) (Abd Poll Brev) 25.44 1.16 Left Ulnar (Mrkrs) (Abd Dig Min) 27.42 1.75 Right Ulnar (Mrkrs) (Abd Dig Min) 25.67 1.75 EMG Side Muscle Nerve Root Ins Act Fibs Amp Dur Recrt Comment Right 1stDorInt Ulnar C8-T1 Nml Nml Nml Nml Nml Right Ext Indicis Radial (Post Int) C7-8 Nml Nml Nml Nml Nml Right Ext Digitorum Radial (Post Int) C7-8 Nml Nml Nml Nml Nml Right BrachioRad Radial C5-6 Nml Nml Nml Nml Nml Right PronatorTeres Median C6-7 Nml Nml Nml Nml Nml Right Abd Poll Brev Median C8-T1 Nml Nml Nml Nml Nml Left ABD Dig Min Ulnar C8-T1 Nml Nml Nml Nml Nml Left 1stDorInt Ulnar C8-T1 Nml Nml Nml Nml Nml Left Ext Indicis Radial (Post Int) C7-8 Nml Nml Nml Nml Nml Left Ext Digitorum Radial (Post Int) C7-8 Nml Nml Nml Nml Nml Left BrachioRad Radial C5-6 Nml Nml Nml Nml Nml Left PronatorTeres Median C6-7 Nml Nml Nml Nml Nml Left Abd Poll Brev Median C8-T1 Nml Nml Incr >12ms Reduced Right ABD Dig Min Ulnar C8-T1 Nml Nml Nml Nml Nml MTDD
== END 2023-09-09 12:58 | disposition home or self-care (01) ==
LOC: ANHNEURO 13:00
PROVIDERS: PCP Nurse Practitioner Family; Visit Provider Nurse Practitioner Family
DX: R20.0 Anesthesia of skin (principal); G56.03 Carpal tunnel syndrome, bilateral upper limbs
CPT/HCPCS: 95886; 95911

== ENCOUNTER 2023-09-12 05:18 | Emergency (ER) | payer OTHER, SELFPAY ==
[2023-09-12] VITALS (12 sets, daily range): BP systolic 109–188; BP diastolic 70–157; PULSE 108–119; RESP 10–21; TEMP 36.6–36.8; O2SAT 96–99
--- NOTE | ~2023-09-12 | CT_ITS ---
EXAMINATION: CT abdomen pelvis w con DATE: 09/12/2023 07:07 INDICATION: Epigastric abdominal pain TECHNIQUE: Computed tomography (CT) of the abdomen and pelvis was performed with 100 mL Omnipaque-350 intravenous contrast. Automated exposure control and iterative reconstruction technique were employe d. The dose-length product was 228.86 mGy-cm. COMPARISON: None FINDINGS: Lung bases are clear. Heart size is normal. No pericardial or pleural effusion. Small sliding-type hi atal hernia. Cholecystectomy clips the gallbladder fossa. Liver, spleen, pancreas and bilateral adren al glands are normal. Bilateral renal cysts the largest on the left measuring 1.5 cm. There is a new ill-defined region of hypoenhancement at the upper pole of the right kidney with some decrease in par enchymal volume which suggests sequela of prior infarct or infection. Bladder, anteverted uterus and bilateral adnexa are unremarkable. There is a diverticulum at the splenic flexure without adjacent fr om trace stranding to suggest diverticulitis. No bowel obstruction. Normal appendix. No free intraper itoneal gas or fluid. No pathologically enlarged abdominal or pelvic lymphadenopathy. Mild lumbar spo ndylosis. IMPRESSION: 1. No acute intra-abdominal/pelvic process. 2. Small sliding-type hiatal hernia. Reviewed, dictated and finalized at location A. INUOUS WAVE OPERATOR
--- NOTE | 2023-09-12 05:43 | ED.GENADULT ---
HPI - General Adult General Chief complaint: Nausea/Vomiting/Diarrhea Stated complaint: sick Time Seen by Provider: 09/12/23 05:30 History of Present Illness HPI narrative: the patient is a 58 old woman with a history of abdominal surgery: Bilateral oophorectomy but no hysterectomy, tubal ligation, cholecystectomy, inguinal herniorrhaphy as a , L4-5 fusion of the back, and rotator cuff surgery. Other comorbidities include diabetes with peripheral neuropathy, hypertension, hyperlipidemia. Since 2 days ago, the patient has had multiple episodes of emesis. She had 3 episodes 2 days ago, 10 episodes yesterday, and 5 episodes in the last 5 hours. She is feeling weak and tired. Last emesis was as she was coming into the hospital. She still feels nauseated. She did have a normal bowel movement yesterday initially farm but then normal, 1 bowel movement, no diarrhea. Has had chills and diaphoresis but no fevers. Minimal abdominal epigastric discomfort from emesis. No rhinorrhea nasal congestion or cough or shortness of breath or sore throat. No UTI symptoms. No known sick contacts. Related Data Home Medications Medication Instructions Recorded Confirmed gabapentin 300 mg capsule 300 mg PO TID 09/04/19 07/01/23 cetirizine 10 mg tablet 10 mg PO DAILY 04/23/22 07/01/23 trazodone 50 mg tablet 50 mg PO DAILY 04/23/22 07/01/23 Allergies Allergy/AdvReac Type Severity Reaction Status Date / Time codeine AdvReac Mild Nausea and Verified 09/12/23 07:24 Vomiting Review of Systems Review of Systems: All systems reviewed & are unremarkable except as noted in HPI and below Constitutional: Constitutional: Denies chills, Denies excessive sweating, Reports fatigue, Denies fever(s) and Denies headache(s) Eyes: Eyes: Denies change in vision and Denies photophobia ENT: Denies dysphagia, Denies dizziness, Denies headache(s), Denies lip swelling, Denies nasal congestion, Denies sore throat and Denies tongue swelling Cardiovascular: Cardiovascular: Denies chest pain, Denies syncope, Denies rapid heart rate and Denies dyspnea Respiratory: Respiratory: Denies cough, Denies dyspnea and Denies wheezing Gastrointestinal: Gastrointestinal: Reports abdominal pain, Denies constipation, Denies dysphagia, Denies diarrhea, Reports nausea and Reports vomiting Genitourinary: Genitourinary: Denies hematuria, Denies urinary frequency, Denies dysuria and Denies urinary urgency Musculoskeletal: Musculoskeletal: Denies back pain, Denies myalgias, Denies arthralgias, Denies joint swelling and Denies numbness Integumentary/Breasts: Skin/Breast: Denies pruritus, Denies erythema and Denies rash Neurologic: Denies confusion, Denies dizziness, Denies syncope, Denies headache(s), Denies focal weakness, Denies numbness and Reports weakness (generalized) Psychiatric: Psychiatric: Denies anxiety and Denies confusion Endocrine: Endocrine: Denies excessive sweating and Denies fatigue Hematologic/Lymphatic: Hematologic/Lymphatic: Denies easy bleeding and Denies easy bruising Allergic/Immunologic: Allergic/Immunologic: Denies lip swelling, Denies tongue swelling and Denies wheezing PMFSH Past Medical History Medical History Bronchitis Diabetes History of COVID-19 HLD (hyperlipidemia) HTN (hypertension) Peripheral neuropathy Surgical History Surgical History History of bilateral oophorectomy History of hysterectomy History of inguinal hernia repair As baby History of lumbar surgery L4-L5 fusion History of rotator cuff surgery lt rotator cuff, 2 screws History of tubal ligation Family History Family History Mother Hypertension Father Family history of diabetes mellitus in first degree relative Family history of coronary artery disease Social History Social History (Reviewed
[2023-09-12 05:46] LABS: Basophils Absolute Auto 0.03 K/mm3 (0.00-0.10); Basophils Percent Auto 0.4 % (0.0-1.0); Eosinophils Absolute Auto 0.07 K/mm3 (0.02-0.50); Eosinophils Percent Auto 0.8 % (1.0-6.0); Hematocrit 42.9 % (35.0-49.0); Hemoglobin 14.7 g/dL (12.0-15.0); Immature Granulocyte Absolute 0.03 K/mm3 (0.00-0.00); Immature Granulocyte Percent A 0.4 % (0.0-0.0); Lymphocytes Percent Auto 22.9 % (18.0-42.0); Mean Corpuscular HGB Conc 34.3 g/dL (32.0-36.0); Mean Corpuscular Hemoglobin 27.4 pg (27.0-31.0); Mean Platelet Volume 9.6 fl (9.2-11.8); Monocytes Absolute Auto 0.52 K/mm3 (0.10-0.90); Monocytes Percent Auto 6.3 % (2.0-11.0); Neutrophils Absolute Auto 5.8 K/mm3 (1.7-7.2); Neutrophils Percent Auto 69.2 % (50.0-70.0); Platelet Count Result 371 K/mm3 (150-420); Red Blood Count 5.36 M/mm3 (4.20-5.40); Red Cell Distribution Width 12.3 % (11.6-14.4); White Blood Count 8.3 K/mm3 (4.8-10.8)
[2023-09-12] MEDS: METOCLOPRAMIDE HCL INJ 10 MG/2 ML VIAL IV PUSH (05:50)
[2023-09-12] MEDS: SODIUM CHLORIDE 0.9% IV 1,000 ML 999 ML IV CONT ×2 (05:50→05:51)
[2023-09-12] MEDS: ONDANSETRON INJ 4 MG/2 ML VIAL IV PUSH (05:50)
[2023-09-12 05:57] LABS: Alanine Aminotransferase 25 U/L (14-59); Albumin Level 4.3 g/dL (3.4-5.0); Alkaline Phosphatase 92 U/L (46-116); Amylase 45 U/L (25-115); Anion Gap 13 mmol/L (8-16); Aspartate Amino Transferase 14 U/L (15-37); Bilirubin,Total 0.7 mg/dL (0.00-1.00); Blood Urea Nitrogen 27 mg/dL (7-18); Calcium 9.2 mg/dL (8.5-10.1); Carbon Dioxide 26 mmol/L (21-32); Chloride 99 mmol/L (98-108); Estimated CRCL calculation 43 ml/min; Estimated Glomerular Filt Rate 59; Glucose 270 mg/dL (70-99); Lipase 33 U/L (16-77); Magnesium 1.9 mg/dL (1.8-2.4); Osmolality Calculated 301 mOsm/kg (285-295); Potassium 3.6 mmol/L (3.5-5.1); Sodium 138 mmol/L (136-145); Total Protein 8.6 g/dL (6.4-8.2)
[2023-09-12 06:02] LABS: Lactic Acid Reflex 1.8 mmol/L (0.4-2.0)
[2023-09-12 06:35] LABS: SARS-CoV-2 RNA PCR Negative (Negative)
[2023-09-12 06:37] LABS: Influenza A QL RT-PCR Negative (Negative); Influenza B QL RT-PCR Negative (Negative); RSV RNA, RT-PCR Negative (Negative)
[2023-09-12] MEDS: PANTOPRAZOLE SODIUM IV 40 MG VIAL IV PUSH (06:49)
[2023-09-12] MEDS: KETOROLAC 30 MG/ML VIAL (*BKC) IV PUSH (06:49)
[2023-09-12 07:18] LABS: Appearance Urine Clear (Clear); Bilirubin Urine Negative (Negative); Blood Urine Negative (Negative); Color Urine Light Yellow (Yellow); Glucose Urine UA 3+ (Negative); Ketones Urine 2+ (Negative); Leukocyte Esterase Ur Trace LEU/UL (Negative); Nitrate Urine Negative (Negative); Protein Urine 2+ (Negative); Urobilinogen Urine 0.2 mg/dL (0.2-1.0)
[2023-09-12 07:25] LABS: Add Urine Microscopic? YES; Bacteria Urine 4+ /hpf; RBC Urine None seen /hpf (0-2); Squamous Epithelial Cell Urine Few /hpf (Few)
--- NOTE | 2023-09-14 12:55 | PC.NURSE ---
PRELIMINARY URINE CULTURE RESULTS: ISOLATE 1: GREATER THAN 100,000 CFU/ML OF ESCHERICHIA COLI. PER DR ESPINOSA, TO AWAIT C&S.
--- NOTE | 2023-09-17 15:06 | PC.NURSE ---
Final urine culture report, Positive for escherichia coli, patient discharged on cephalexin 500, 1 po every 8 hours, [address] Garcia, no change in medication needed.
== END 2023-09-12 08:04 | disposition home or self-care (01) ==
PROVIDERS: Emergency Provider Emergency Medicine
DX: N39.0 Urinary tract infection, site not specified (principal); E11.9 Type 2 diabetes mellitus without complications; E78.5 Hyperlipidemia, unspecified; I10 Essential (primary) hypertension; Z20.822 Contact with and (suspected) exposure to COVID-19
CPT/HCPCS: 36415; 74177; 80053; 81001; 82150; 83605; 83690; 83735; 85025; 87077; 87086; 87088; 87186; 87637; 96361; 96365; 96375; 99284; C9113; J0696; J1885; J2405; J2765; J7030; Q9967

== ENCOUNTER 2024-01-08 09:23 | Outpatient (CLI) | payer OTHER, SELFPAY ==
--- NOTE | 2024-01-08 | ECG_ITS ---
Test Date: 2024-01-08 09:50:21 Measurements Intervals [place] Rate: 90 P: 33 AR: 166 QRS: -6 QRSD: 101 T: 38 QT: 347 QTc: 426 Interpretive Statements SINUS RHYTHM INCOMPLETE RIGHT BUNDLE BRANCH BLOCK [90+ ms QRS DURATION, TERMINAL R IN V1/V2, 40+ ms S IN I/aVL/V4/V5/V6] No previous ECG available for comparison Electronically Signed On 01-09-2024 15:49:00 CDT by Dionisio Escalera M.D.
== END 2024-01-08 09:24 | disposition home or self-care (01) ==
LOC: ANHCARD 09:28
PROVIDERS: Visit Provider Orthopaedic Surgery
DX: Z01.812 Encounter for preprocedural laboratory examination (principal); G56.02 Carpal tunnel syndrome, left upper limb; I45.10 Unspecified right bundle-branch block; Z01.818 Encounter for other preprocedural examination; Z01.810 Encounter for preprocedural cardiovascular examination; Z01.811 Encounter for preprocedural respiratory examination
CPT/HCPCS: 93005

== ENCOUNTER 2024-04-29 12:40 | Emergency (ER) | payer OTHER, SELFPAY ==
--- NOTE | ~2024-04-29 | XR_ITS ---
Clinical Indication: Cough PA and lateral views of the chest: Comparison: 08/07/2021 Findings: The lungs are clear, without evidence of focal consolidation or pleural effusion. Cardiome diastinal silhouette is within normal limits. Bones and soft tissues are unremarkable. Impression: Normal chest. Reviewed, dictated and finalized at location . Impression: Normal chest.
[2024-04-29 12:45] VITALS: BP 123/59; PULSE 94; RESP 16; TEMP 37.4; O2SAT 99
--- NOTE | 2024-04-29 13:09 | ED.URI ---
HPI - URI/Sore Throat General Chief Complaint: Upper Respiratory Infection Stated Complaint: Cough Time Seen by Provider: 04/29/24 13:09 Source: patient Mode of arrival: ambulatory Limitations: no limitations History of Present Illness HPI Narrative: 59-year-old female presented for complaint of cough for 3 weeks following diagnosis of COVID on 04/13/2024. She has taken Paxil bid, albuterol inhaler and Tessalon Perles without relief. Also used Delsym and Claritin. Reports pain above shoulder blades, sinus congestion and pressure, and bilateral ear pressure, fatigue. Denies chest pain, palpitations, n/v/d/f/c. States she spoke with pcp who advised CXR. Related Data Home Medications Medication Instructions Recorded Confirmed gabapentin 300 mg capsule 300 mg PO TID 09/04/19 07/01/23 cetirizine 10 mg tablet 10 mg PO DAILY 04/23/22 07/01/23 trazodone 50 mg tablet 50 mg PO DAILY 04/23/22 07/01/23 albuterol sulfate 90 mcg/actuation inhalation 04/29/24 aerosol inhaler benzonatate 200 mg capsule mg PO 04/29/24 insulin glargine 100 unit/mL (3 unit subcut 04/29/24 mL) subcutaneous pen (Lantus Solostar U-100 Insulin) Allergies Allergy/AdvReac Type Severity Reaction Status Date / Time codeine AdvReac Mild Nausea and Verified 09/12/23 07:24 Vomiting Review of Systems Review of Systems: CONSTITUTIONAL: Denies body aches, fever, chills, or sweats. EYES: Denies visual changes, redness, or discharge. ENT: reports rhinorrhea, congestion, otalgia. CARDIOVASCULAR: Denies chest pain, palpitations, or edema. RESPIRATORY: Reports cough, sob, denies wheezing. GASTROINTESTINAL: Denies abdominal pain, nausea, vomiting, or diarrhea. MUSCULOSKELETAL: Reports upper back pain NEUROLOGIC: Denies headache All systems reviewed & are unremarkable except as noted in HPI and below PMFSH Past Medical History Medical History Bronchitis Diabetes History of COVID-19 HLD (hyperlipidemia) HTN (hypertension) Peripheral neuropathy Surgical History Surgical History History of bilateral oophorectomy History of hysterectomy History of inguinal hernia repair As baby History of lumbar surgery L4-L5 fusion History of rotator cuff surgery lt rotator cuff, 2 screws History of tubal ligation Family History Family History Mother Hypertension Father Family history of diabetes mellitus in first degree relative Family history of coronary artery disease Social History Social History Smoking status: Never smoker Alcohol intake: never Gender identity (if verbalized by the patient): Female Comments At time of signature, I have reviewed and agree with nursing past medical, surgical, social and family history unless otherwise noted. Please see nursing chart for further information. There is no relevant family history pertinent to the presenting complaint Exam Narrative: GENERAL: mildly ill-appearing, in no acute distress. EYES: EOMI. No redness or drainage. Conjunctivae normal. ENT: Mucous membranes pink and moist. No rhinorrhea. TMs normal bilaterally, mild clear effusion. Throat normal. Uvula midline. NECK: Normal AROM. Supple. CHEST: No respiratory distress. lungs clear to all moreno. frequent nonproductive cough HEART: Regular rate and rhythm. No murmur appreciated. SKIN: Warm, dry, no rash. Capillary refill normal. Normal skin turgor. NEURO: Alert and oriented x3. Gait steady. PSYCH: flat affect, slow to respond Course Course Emergency Course: Patient is aware of diagnosis, understands and agrees to treatment plan. Anticipatory guidance given. Patient agrees to follow-up as directed and is aware of reasons to seek care at the emergency department. Portions of this record may
== END 2024-04-29 13:48 | disposition home or self-care (01) ==
PROVIDERS: Emergency Provider Nurse Practitioner Family; PCP Nurse Practitioner Family
DX: J40 Bronchitis, not specified as acute or chronic (principal); I10 Essential (primary) hypertension; E78.5 Hyperlipidemia, unspecified; E11.42 Type 2 diabetes mellitus with diabetic polyneuropathy; Z86.16 Personal history of COVID-19
CPT/HCPCS: 71046; 99213; G0463

== ENCOUNTER 2024-09-28 11:41 | Outpatient (CLI) | payer OTHER, SELFPAY ==
--- NOTE | ~2024-09-28 | XR_ITS ---
SINGLE AP VIEW PELVIS Ordering provider: Shira Lea, History: . LT pubic bone pain X 1 MONTH . Comparison: None. FINDINGS: BONES: No acute fracture or dislocation. HIP JOINT SPACES: Bilateral hip mild to moderate osteoarthritic changes. SACROILIAC JOINT SPACES/LUMBAR SPINE: The sacroiliac joint spaces are normal. Mild degenerative angulo es of the visualized lower lumbar spine. PUBIC SYMPHYSIS: Normal. SOFT TISSUES: Normal. IMPRESSION: No acute osseous abnormality pelvis. Reviewed, dictated and finalized at location A. [facility]
--- OUTSIDE RECORDS SUMMARY | 2024-09-28 13:23 | XMS_ITS | Referral Summary ---
Author Organization [facility] [place] [address] [facility] [address] Address [address] [place] [address] Care Team Providers Care Town Administrator Name Role Phone Chetna Garcia NP Primary Care Provider Allergies Active Allergy Reactions Criticality Noted Date Comments Codeine Nausea And Vomiting 06/04/2021 Medications insulin syringe-needle U-100 1 mL 25 gauge x 5/8 syringe lantus insulin twice daily 100 Syringe 6 10/31/19 17 Active TRUE METRIX GLUCOSE TEST STRIP strip 6 03/12/20 17 Active FLUVIRIN 6615-2095, PF, 45 mcg (15 mcg x 3)/0.5 mL syringe ADM 0.5ML IM UTD 0 06/11/20 17 Active VIRTUSSIN AC 10-100 mg/5 mL liquidIndications: Cough Take 5 mL by mouth 4 (four) times a day as needed for cough. 200 mL 07/16/20 17 Active Additional Information Patient not taking.Reported on 01/14/2023 UNIFINE PENTIPS 31 gauge x 1/4 needle USE TO INJECT BASAGLAR TWICE DAILY 60 each 3 07/29/19 18 Active metFORMIN (GLUCOPHAGE) 1,000 mg tablet TAKE 1 TABLET BY MOUTH TWICE DAILY WITH THE MORNING AND EVENING MEAL 180 tablet 08/26/19 18 Active VENTOLIN HFA 90 mcg/actuation inhalerIndications :Bronchitis INHALE 2 PUFFS BY MOUTH EVERY 4 HOURS NEEDED WHEEZING OR SHORTNESS OF BREATH 18 g 09/22/19 18 Active metoclopramide (REGLAN) 10 mg tablet TK 1 T PO 15 MINUTES BEFORE MEALS AND AT BEDTIME 0 09/08/[address] (PROTONIX) 40 mg EC tablet TK 1 T PO D 0 09/08/19 18 Active simvastatin (ZOCOR) 20 mg tabletIndications: Mixed hyperlipidemia Take 1 tablet (20 mg total) by mouth nightly. 90 tablet 1 11/13/19 18 Active insulin glargine (BASAGLAR KWIKPEN U-100 INSULIN) 100 unit/mL (3 mL) insulin penIndications:Typ e 2 diabetes mellitus with diabetic neuropathy, with long-term current use of insulin ([facility]),Diabetic polyneuropathy associated with type 2 diabetes mellitus (HCC) Inject 0.24 mL (24 Units total) under the skin 2 (two) times a day. 3 pen 3 11/13/19 18 Active gabapentin (NEURONTIN) 300 mg capsuleIndications :Type 2 diabetes mellitus with diabetic neuropathy, with long-term current use of insulin ([facility]),Diabetic polyneuropathy associated with type 2 diabetes mellitus (HCC),Type 2 diabetes mellitus with diabetic polyneuropathy, with long-term current use of insulin ([facility]) TAKE 1 CAPSULE BY MOUTH THREE TIMES DAILY 270 capsule 1 05/07/20 18 Active traZODone (DESYREL) 50 mg tablet Take 1 tablet (50 mg total) by mouth daily 12/12/19 23 Active Ozempic 2 mg/dose (8 mg/3 mL) pen injector injection INJECT 2 MG UNDER THE SKIN EVERY WEEK 12/26/19 23 Active montelukast (SINGULAIR) 10 mg tablet Take 1 tablet (10 mg total) by mouth daily 10/14/19 23 Active Active Problems Problem Noted Date Diagnosed Date Sensorineural hearing loss (SNHL) of both ears 0 01/14/2023 Assessment & Plan (01/14/2023 3:39 PM CDT): Hearing test [facility] [place] Otitis media 08/11/2017 Referred otalgia of left ear 08/11/2017 Assessment & Plan (01/14/2023 3:39 PM CDT): Hearing test [facility] [place] Pain in wrist 09/09/2016 Overview (10/31/2016): Left wrist pain Acute maxillary sinusitis 09/09/2016 Overview (10/31/2016): Acute non-recurrent maxillary sinusitis Rib pain 02/12/2016 Overview (10/31/2016): Rib pain on left side Type 2 diabetes mellitus 02/12/2016 Overview (10/31/2016): Type 2 diabetes mellitus with diabetic neuropathy, with long-term current use of insulin Hyperlipidemia 02/12/2016 Overview (10/31/2016): Hyperlipidemia, unspecified hyperlipidemia type Diabetic polyneuropathy 02/12/2016 Overview (10/31/2016): Diabetic polyneuropathy associated with type 2 diabetes mellitus Resolved Problems Problem Noted Date Diagnosed Date Resolved Date Breast neoplasm screening status 02/12/2016 07/16/2017 Overview (10/31/2016): Breast cancer screening Immunizations Immunization Administration Dates Next Due Influenza, Trivalent, High D ose, Split, Preservative Free, Intramuscular 05/12/2016 Influenza, Unspecified 04/26/2017 Social History Tobacco Use Types Packs/Day Years Used Date Smoking Tobacco: Never Smokeless Tobacco: Never Tobacco Cessation:Counseling Given: Not Answered Alcohol Use Standard Drinks/Week Comments Yes 0 (1 standard drink = 0.6 oz pur e alcohol) Personal Safety Answer Date Recorded Getting School Help Needed Not on file 09/20 Comments No Sex and Gender Information Value Date Recorded Sex Assigned at Not on file Legal Sex Female 3:15 PM [employer] Gender Identity Not on file Sexual Orientation Not on file Last Filed Vital Signs Vital Sign Reading Time Taken Comments Blood Pressure 87/59 01/14/2023 3:06 PM CDT Pulse 99 01/14/2023 3:06 PM CDT Temperature 36.8 C (98.2 F) 01/14/2023 3:06 PM CDT Respiratory Rate 18 01/14/2023 3:06 PM CDT Oxygen Saturation 96% 01/14/2023 3:06 PM CDT Inhaled Oxygen Concentration - - Weight 59.6 kg (131 lb 8 oz) 01/14/2023 3:06 PM CDT Height 154.9 cm (5' 1 ) 01/14/2023 3:06 PM CDT Body Mass Index 24.85 01/14/2023 3:06 PM CDT Plan of Treatment Not on file Procedures Procedure Name Priority Date/Time Associated Diagnosis Comments POCT GLYCOSYLATED HEMOGLOBIN (HGB A1C), HOME MONITOR Routine 11/12/2017 9:58 AM CDT Type 2 diabetes mellitus with diabetic polyneuropathy, with long-term current use of insulin (HCC) Diabetic polyneuropathy associated with type 2 diabetes mellitus (HCC) SCREENING MAMMOGRAM BILATERAL W EVGENY Schedule Routine, Read Routine (OP Routine) 08/11/2017 3:43 PM [employer] Screening breast examination PAP SMEAR WITH HPV Routine 06/26/2017 DIABETES FOOT EXAM Routine 03/02/2017 LIPID PANEL Routine 09/10/2016 DIABETES EYE EXAM Routine 02/25/2016 from Last 3 Months or Most Recently Relevant to Health Maintenance Results * (ABNORMAL) POCT glycosylated hemoglobin (Hb A1C) (11/12/2017 9:58 AM CDT) Hemoglobin A1C, POC 10.7 Comment:abnormal Blood specimen (specimen) Venous blood specimen / Unknown 11/12/2017 9:58 AM CDT Katie Duarte NP POINT OF CARE TEST ORDERA BLES Final Result * Screening Mammogram Bilateral W Evgeny (08/11/2017 3:43 PM [employer]) Anatomical Region Laterality Modality Breast Bilateral Mammography Addenda Addendum by Jose Alejandro Garsia MD on 11/06/2017 7:18 AM CDT ADDENDUM #1 Comparison is now made to a prior study from 03/20/2014 from [facility]. No interval suspicious mass or calcification has developed to suggest mammographic evidence of malignancy. Annual follow-up recommended. BI-RADS 2 Electronically signed by: Jose Alejandro Garsia M.D. ORIGINAL REPORT - ADDENDUM ABOVE SCREENING MAMMOGRAM BILATERAL W EVGENY HISTORY: Encounter for screening mammogram for malignant neoplasm of breast TECHNIQUE: 2 views of each breast were obtained with bilateral breast tomosynthesis. COMPARISON: None currently available but release form submitted to acquire prior exam for comparison. FINDINGS: The breasts are heterogeneously dense with asymmetric fibroglandular density in the outer upper aspect of the left breast. No suspicious mass or calcification is seen to suggest mammographic evidence of malignancy. There are bilateral benign breast calcifications. Digital technology was employed plus computer aided detection software (R2) was utilized in interpretation of these images. This facility utilizes a reminder system to notify patient's of yearly mammograms. IMPRESSION: 1. NO DEFINITIVE MAMMOGRAPHIC EVIDENCE OF MALIGNANCY. IF PRIOR STUDIES BECOME AVAILABLE AN ADDENDUM WILL BE ISSUED OTHERWISE ANNUAL FOLLOW-UP RECOMMENDED. BI-RADS 2 Electronically signed by: Jose Alejandro Garsia M.D. Impressions 08/11/2017 3:58 PM [employer]NER 1. NO DEFINITIVE MAMMOGRAPHIC EVIDENCE OF MALIGNANCY. IF PRIOR STUDIES BECOME AVAILABLE AN ADDENDUM WILL BE ISSUED OTHERWISE ANNUAL FOLLOW-UP RECOMMENDED. BI-RADS 2 Electronically signed by: Jose Alejandro Garsia M.D. Narrative 08/11/2017 3:58 PM [employer]NER SCREENING MAMMOGRAM BILATERAL W EVGENY HISTORY: Encounter for screening mammogram for malignant neoplasm of breast TECHNIQUE: 2 views of each breast were obtained with bilateral breast tomosynthesis. COMPARISON: None currently available but release form submitted to acquire prior exam for comparison. FINDINGS: The breasts are heterogeneously dense with asymmetric fibroglandular density in the outer upper aspect of the left breast. No suspicious mass or calcification is seen to suggest mammographic evidence of malignancy. There are bilateral benign breast calcifications. Digital technology was employed plus computer aided detection software (R2) was utilized in interpretation of these images. This facility utilizes a reminder system to notify patient's of yearly mammograms. Procedure Note Jose Alejandro Garsia MD / ProviderRoger MD - 08/11/2017 SCREENING MAMMOGRAM BILATERAL W EVGENY HISTORY: Encounter for screening mammogram for malignant neoplasm of breast TECHNIQUE: 2 views of each breast were obtained with bilateral breast tomosynthesis. COMPARISON: None currently available but release form submitted to acquire prior exam for comparison. FINDINGS: The breasts are heterogeneously dense with asymmetric fibroglandular density in the outer upper aspect of the left breast. No suspicious mass or calcification is seen to suggest mammographic evidence of malignancy. There are bilateral benign breast calcifications. Digital technology was employed plus computer aided detection software (R2) was utilized in interpretation of these images. This facility utilizes a reminder system to notify patient's of yearly mammograms. IMPRESSION: 1. NO DEFINITIVE MAMMOGRAPHIC EVIDENCE OF MALIGNANCY. IF PRIOR STUDIES BECOME AVAILABLE AN ADDENDUM WILL BE ISSUED OTHERWISE ANNUAL FOLLOW-UP RECOMMENDED. BI-RADS 2 Electronically signed by: Jose Alejandro Garsia M.D. Katie Duarte NP IMG MAMMO PROCEDURES Edit ed Result - Final * PAP SMEAR WITH HPV (06/26/2017) Pap smear Unknown Comment:[place] 06/2017 [facility] Provider HEALTH MAINTENANCE Final Result * DIABETES FOOT EXAM (03/02/2017) Diabetic Foot Exam Normal SCRIBED DM FOOT SITES SENSED 6 Comment:6:6 Result [facility] Provider HEALTH MAINTENANCE Final Result * LIPID PANEL (09/10/2016) Lipid Panel Abnormal Comment:BK=281 HDL=37 EN=295 QTK=082 [facility] Provider HEALTH MAINTENANCE Final Result * DIABETES EYE EXAM (02/25/2016) Diabetic Eye Exam Normal [facility] Provider HEALTH MAINTENANCE Final Result from Last 3 Months or Most Recently Relevant to Health Maintenance Insurance [facility] Care Teams Town Administrator Relationship Specialty Start Date End Date Garcia, Chetna Estrada NP [address] [place] [address] PCP - General Nurse Practitioner 10/16/22
--- OUTSIDE RECORDS SUMMARY | 2024-09-28 13:23 | XMS_ITS | Patient Health Summary ---
Author Organization [facility] Address [address] [place] [address] [address] Care [address] Train Driver Name Role Phone Chetna Garcia TRUST MAIL CLERK-CERAMICS MACHINE OPERATOR Primary Care Provider [phone] Note from [facility],non-owned Affiliates and Associated Physician Practices is amultiple site organization consisting of ambulatory clinics and hospital sitesin [place], [place], [place] and [place]. This disclosure is being madepursuant to the Care Everywhere program and may not contain all information available regarding this patient. Last updated 18.[facility] Allergies * Codeine(Nausea and/or Vomiting) Medications * Be aware that medications may not be up to date on this document. Alwaysverify current medications with the patient. * albuterol HFA (PROVENTIL; VENTOLIN; PROAIR) 108 (90 Base) MCG/ACT inhaler (Started 11/25/2020) INHALE 2 PUFFS EVERY 4 HOURS NEEDED FOR COUGH * gabapentin (NEURONTIN) 300 MG capsule 300 mg 3 times daily * metFORMIN (GLUCOPHAGE) 1000 MG tablet(Started 12/03/2020) 1,000 mg 2 times daily with morning and evening meal * OZEMPIC, 0.25 OR 0.5 MG/DOSE, 2 MG/1.5ML pen(Started 05/03/2021) 0.5 mg every 7 days 1 ml q 7 days * Basaglar KwikPen (BASAGLAR) pen Inject 20 Units subcutaneously 2 times daily * oxyCODONE, immediate release, (ROXICODONE) 5 MG tablet(Started 07/03/2021) Take 1 (one) tablet by mouth every 6 hours as needed for Pain * docusate sodium (COLACE) 50 MG capsule(Started 07/03/2021) Take 1 (one) capsule by mouth once daily Active Problems No known active problems Immunizations * Covid Moderna primary monovalent 12+ yr 0.5mL(Given 02/01/2021, 12/28/2020) * INFLUENZA VACCINE(Given 04/26/2017) * INFLUENZA VACCINE, HIGH-DOSE, QUADR. (FLUZONE HIGH-DOSE QUADRIVALENT; 65Y+), 0.7 ML (HD-IIV4)(Given 05/12/2016) Social History Tobacco Use Types Packs/Day Years Used Date Smoking Tobacco: Never Smokeless Tobacco: Never Alcohol Use Standard Drinks/Week Comments Yes 0 (1 standard drink = 0.6 oz pur e alcohol) rarely Sex and Gender Information Value Date Recorded Sex Assigned at Not on file Gender Identity Not on file Sexual Orientation Not on file Last Filed Vital Signs Vital Sign Reading Time Taken Comments Blood Pressure 131/89 07/18/2021 1:59 PM COMMERCIAL LOAN COORDINATOR Pulse 102 07/18/2021 1:59 PM COMMERCIAL LOAN COORDINATOR Temperature 36.7 C (98 F) 07/18/2021 1:59 PM COMMERCIAL LOAN COORDINATOR Respiratory Rate 20 07/18/2021 1:59 PM COMMERCIAL LOAN COORDINATOR Oxygen Saturation 99% 07/03/2021 4:59 PM COMMERCIAL LOAN COORDINATOR Inhaled Oxygen Concentration - - Weight 51.3 kg (113 lb) 07/18/2021 1:59 PM COMMERCIAL LOAN COORDINATOR Height 154.9 cm (5' 1 ) 07/18/2021 1:59 PM COMMERCIAL LOAN COORDINATOR Body Mass Index 21.35 07/18/2021 1:59 PM COMMERCIAL LOAN COORDINATOR Procedures * CARDIAC RHYTHM STRIP ORDER(Performed 07/08/2021) * GLUCOSE - POINT OF CARE(Performed 07/03/2021) * PATHOLOGY TISSUE EXAM (STL)(Performed 07/03/2021) Performed for Diagnosis unknown * ENDOTRACHEAL TUBE NOTE(Performed 07/03/2021) * TYPE + SCREEN PANEL(Performed 07/03/2021) * CO LAP,CHOLECYSTECTOMY(Performed 07/03/2021) Performed for Diagnosis unknown * GLUCOSE - POINT OF CARE(Performed 07/03/2021) Results * CARDIAC RHYTHM STRIP ORDER (07/08/2021 5:42 PM COMMERCIAL LOAN COORDINATOR) Narrative 07/08/2021 5:42 PM COMMERCIAL LOAN COORDINATOR Ordered by an unspecified provider. Scanned Document CARDIAC SERVICES ORD ERABLES * (ABNORMAL) GLUCOSE - POINT OF CARE (07/03/2021 2:33 PM COMMERCIAL LOAN COORDINATOR) Only the most recent of2 resultswithin the time period is included. Glucose WB/POC 189(H) 70 - 106 mg/dL 07/03/2021 2:39 PM COMMERCIAL LOAN COORDINATOR [facility] Specimen Type Cap Fingerstick 2020 2:39 PM COMMERCIAL LOAN COORDINATOR [facility] Blood BLOOD SPECIMEN / Unknown 07/03/2021 2:33 PM COMMERCIAL LOAN COORDINATOR 07/03/2021 2:39 PM COMMERCIAL LOAN COORDINATOR Carrington Sun MD LAB - POINT OF CARE ORDERABLES Performing Organization Address City/State/[facility] de Phone Number [facility] [address] [place] [address] * PATHOLOGY TISSUE EXAM (STL) (07/03/2021 1:31 PM COMMERCIAL LOAN COORDINATOR) Case Report Surgical Pathology Report Case: [id number] Authorizing Provider: Carrington Sun MD Collected: 07/03/2021 01:31 PM Ordering Location: [facility] Received: 07/03/2021 03:18 PM Pathologist: Nusrat Dong MD Specimen: Gallbladder, gallbladder 07/05/2021 12:33 PM COMMERCIAL LOAN COORDINATOR [facility] Final Diagnosis Gallbladder, cholecystectomy (A): - Gallbladder wall, no pathologic diagnosis - Cholelithiasis 07/05/2021 12:33 PM COMMERCIAL LOAN COORDINATOR [facility] Clinical History 56 year old woman 07/05/2021 12:33 PM COMMERCIAL LOAN COORDINATOR [facility] Gross Description The requisition and specimen are identified with patient's name and date of . Received in formalin, specimen A, gallbladder is an intact gallbladder, 7.5 x 3 x 2.5 cm. The serosa is green-ponce, smooth and opening shows multiple black-ponce calculi, 0.1-0.2 cm in greatest dimension and 2 x 1 x 0.5 cm in aggregate. The mucosa is green-ponce and velvety, with no other lesions and a wall thickness of 0.1 cm. A cystic duct lymph node is not identified. Dough Scaler And Mixer sections submitted in cassette A1. LJ 07/05/2021 12:[address] [facility] Microscopic Description There is no inflammation or wall thickening in this gallbladder. 07/05/2021 12:[address] [facility] Disclaimer All histochemical and/or immunohistochemical results are interpreted with controls that demonstrate appropriate staining reactions before reporting results. Note on use of immunocytochemistry reagents: This test was developed and its performance characteristic determined by [facility], Department of Laboratory Medicine. It has not been cleared or approved by the U.S. Food and Drug Administration (FDA). The FDA has determined that such clearance or approval is not necessary. The test is used for clinical purpose. It should not be regarded as investigational or for research. This laboratory is certified to perform high complexity testing. The performance characteristics of the IHC/JODI assays have been validated on formalin-fixed paraffin embedded tissues only. The assays have not been validated on decalcified tissues. Results should be interpreted with caution. 07/05/2021 12:[address] [facility] Embedded Images 07/05/2021 12:[address] [facility] Pathology/Cytolo gy ENTIRE GALLBLADDER / Unknown 07/03/2021 1:31 PM COMMERCIAL LOAN COORDINATOR 07/03/2021 3:18 PM COMMERCIAL LOAN COORDINATOR Comment:Pre-op diagnosis: Diagnosis unknown [R69] Carrington Sun MD LAB - PATHOLOGY/CYTO LOGY ORDERABLES [facility] [address] [place] [address] * ETT LINE PERFORMABLE (07/03/2021 1:29 PM COMMERCIAL LOAN COORDINATOR) Narrative Deng Bertrand DO - 07/03/2021 1:29 PM COMMERCIAL LOAN COORDINATOR Codey Blackwood APRN-DONI 07/03/2021 1:34 PM Endotracheal Tube Placement: Patient Location: OR. Procedure: intubation (81804). Procedure Section: Sedation: IV sedation. Indications for Airway Management: airway protection Induction: standard IV and modified rapid sequence Patient Position: sniffing Mask Ventilation: easy. Blade Type: Video Blade Size: 3 Laryngoscopy View: grade 1 (full cords) Intubation Adjuncts: stylet and video laryngoscope Tube: endotracheal tube Placement: oral Tube type: cuff - inflated Tube Size (FR): 7 Depth of Insertion (CM): 20 Measured From: gums Cuff volume (mL): 6 Cuff Inflated With: air Number of Attempts: 2. Ventilation between attempts: Yes. Placement Verified By: direct visualization, bilateral breath sounds, chest auscultation, CO2 monitor and CO2 detector Tube secured with: adhesive tape. Difficult Airway? No. Staff Section Anesthesia Provider: Codey Blackwood APRN-HIGH SCHOOL PROFESSIONAL, Performed the procedure Provider #1: Deng Bertrand DO. Additional Comments: GRADE 3 VIEW OBSERVED USING DIRECT LARYNGOSCOPY AND MAC [address] ETT. GRADE 1 VIEW OBSERVED WITH VIDEO LARYNGOSCOPE AND MAC 3 BLADE. ETT SUCCESSFULLY PLACED. PATIENT VENTILATED WITHOUT DIFFICULTY BETWEEN ATTEMPTS. . Christiano Lovelace DO GENERAL ANESTHESIA ORDERABLES * TYPE + SCREEN PANEL (07/03/2021 12:48 PM COMMERCIAL LOAN COORDINATOR) ABO Rh A POS 07/03/2021 1:31 PM COMMERCIAL LOAN COORDINATOR [facility] Comment:No history; collect retype. Antibody Screen NEG 1:31 PM COMMERCIAL LOAN COORDINATOR [facility] Blood Bank BLOOD SPECIMEN / Unknown Venipuncture / Unknown 07/03/2021 12:48 PM COMMERCIAL LOAN COORDINATOR 07/03/2021 12:59 PM COMMERCIAL LOAN COORDINATOR Carrington Sun MD LAB - BLOOD BANK ORD ERABLES [facility] [address], [place] [address], [facility] [phone] Train Driver Relationship Specialty Start Date End Date Chetna Garcia APRN-L[address] [place] [address] PCP - General Nurse Practitioner Family 07/03/21
--- OUTSIDE RECORDS SUMMARY | 2024-09-28 13:23 | XMS_ITS | Clinical Summary ---
Author Organization [facility] Address [address] [place] [id number] Care Team Providers Care Ballast Regulator Operator Name Role Phone La Chiang MD Primary Care Provider [phone] Social History Tobacco Use Types Packs/Day Years Used Date Smoking Tobacco: Never Assessed Comments Unknown Sex and Gender Information Value Date Recorded Sex Assigned at Not on file Legal Sex Female 7:10 PM CDT Gender Identity Not on file Sexual Orientation Not on file Plan of Treatment Health Maintenance Due Date Last Done Comments Cervical Cancer Screening Pa p Smear (Age 30 to 64) Every 3 Years 1967 Colorectal Cancer Screening Colonoscopy (10 Years) 1967 Annual Physical 1970 Hepatitis C 1985 DTaP, Tdap and Td Vaccines ( 1 - Tdap) 1986 Hepatitis B Vaccines (1 of 3 - 19+ 3-dose series) 1986 Cervical Cancer Screening Pa p with HPV Testing (Age 30 to 64) Every 5 Years 1997 Cervical Cancer Screening with HPV 1997 Mammogram Screening 2007 Zoster Vaccines (1 of 2) 2017 COVID-19 Vaccine (2023-2 5 season) 2024 Influenza Adult (#1) 2024 Meningococcal B Vaccine Aged Out No l onger eligible based on patient's age to complete this topic Meningococcal Vaccine Aged Out No desean romeo eligible based on patient's age to complete this topic Pneumococcal Vaccine: Pediat rics (0 to 5 Years) and At-Risk Patients (6 to 64 Years) Aged Out No longer eligible b ased on patient's age to complete this topic RSV Immunizations Under 20 Months Aged Out No longer eligible based on patient's age to complete this topic Care Teams Ballast Regulator Operator Relationship Specialty Start Date End Date La Chiang MD [address] [place] [address] PCP - General 12/03/11
--- OUTSIDE RECORDS SUMMARY | 2024-09-28 13:23 | XMS_ITS | Clinical Summary ---
Author Organization [facility] [address] [facility] [address] lto Address [address] [place] [address] Care Team Providers [employer] Att[employer] Name Role Phone Chetna Garcia NP Primary Care Provider Allergies Active Allergy Reactions Criticality Noted Date Comments Codeine Nausea And Vomiting 06/04/2021 Medications insulin syringe-needle U-100 1 mL 25 gauge x 5/8 syringe lantus insulin twice daily 100 Syringe 6 10/31/19 17 Active TRUE METRIX GLUCOSE TEST STRIP strip 6 03/12/20 17 Active FLUVIRIN 7212-1743, PF, 45 mcg (15 mcg x 3)/0.5 [...] neuropathy, with long-term current use of insulin ([facility]),Diabetic polyneuropathy associated with type 2 diabetes mellitus (HCC) Inject 0.24 mL (24 Units total) under the skin 2 (two) times a day. 3 pen 3 11/13/19 18 Active gabapentin (NEURONTIN) 300 mg capsuleIndications :Type 2 diabetes mellitus with diabetic neuropathy, with long-term current use of insulin ([facility]),Diabetic polyneuropathy associated with type 2 diabetes mellitus (HCC),Type 2 diabetes mellitus with diabetic polyneuropathy, with long-term current use of insulin ([facility]) TAKE 1 CAPSULE BY MOUTH THREE TIMES [...] Plan (01/14/2023 3:39 PM CDT): Hearing test [facility] in [place] Otitis media 08/11/2017 Referred otalgia of left ear 08/11/2017 Assessment & Plan (01/14/2023 3:39 PM CDT): Hearing test [facility] [place] Pain in wrist 09/09/2016 Overview (10/31/2016): Left [...] Preservative Free, Intramuscular 05/12/2016 Influenza, Unspecified 04/26/2017 Surgical History Surgery Date Site/Laterality Comments OTHER SURGICAL HISTORY cracked rib left side OTHER SURGICAL HISTORY left rotator cuff-pins OTHER SURGICAL HISTORY Ovarian cysts remoed OTHER SURGICAL HISTORY umbilical hernia ovary removal OOPHORECTOMY Medical History Medical History Date Comments Diabetes mellitus (HCC) 1995 Diabetes mellitus Family History Medical History Relation Name Comments Diabetes Father Diabetes mellit us; Heart disease Father Heart disease; Stroke Father Stroke; Breast cancer Father's Sister Heart disease Mother Heart disease; Hypertension Mother Hypertension; Relation Name Status Comments Father (Age 56) Father's Sister Mother Social History Tobacco Use Types Packs/Day Years [...] on file Legal Sex Female 3:15 PM [employer] Gender Identity Not on file Sexual Orientation Not on file Obstetrics History Para Term AB IAB SAB Ectopic Multiple Livin g Live Births 3 Date Outcome GA Total Labor Labor/2nd/3rd Weight Sex Type Anes PTL Cindi A1 A5 Name Clin Last Filed Vital Signs Vital Sign Reading [...] 01/14/2023 3:06 PM CDT Plan of Treatment Health Maintenance Due Date Last Done Comments Albumin Creatinine Ratio, Urine 1967 Colon Cancer Screening-Colonoscopy 1967 Hepatitis C Screening 1967 eGFR 1967 Hepatitis B Screening 1985 Regular Well Visit/Exam 18-64 1985 Dilated Eye Exam 02/24/2017 02/25/2016 Zoster Vaccine (2 of 3) 04/11/2017 2017 Lipid Panel 09/10/2017 09/10/2016, 09/10/2016 Foot Exam 03/02/2018 03/02/2017, 03/02/2017 Hemoglobin A1C 05/14/2018 11/12/2017, 08/0 01/2017, 09/10/2016 Cervical Cancer Screening 06/26/2018 06/26/2017, Breast Cancer Screening-Mammogram 08/11/2018 018 Depression Screening 11/12/2018 11/12/2017, 07/16/2017, 07/16/2017, Additional history exists Pneumococcal vaccine <65 (2 of 2 - PCV) 09/29/2019 09/28/2018 Covid-19 Vaccine (3 - 2023-2 5 season) 2024 02/01/2021, 12/28/2020 Influenza Vaccine (#1) 2024 , 04/20/2019, 05/05/2018, Additional history exists DTaP/Tdap/Td Vaccine (3 - Td or Tdap) 03/05/2031 03/05/2021, 1972 Procedures Procedure Name Priority Date/Time Associated Diagnosis Comments POCT GLYCOSYLATED HEMOGLOBIN (HGB A1C), HOME MONITOR Routine 11/12/2017 9:58 AM CDT Type 2 diabetes mellitus with diabetic polyneuropathy, with long-term current use of insulin (HCC) Diabetic polyneuropathy associated with type 2 diabetes mellitus (HCC) SCREENING MAMMOGRAM BILATERAL W EVGENY Schedule Routine, Read Routine (OP Routine) 08/11/2017 3:43 PM [employer] Screening breast examination PAP SMEAR WITH HPV [...] Mammogram Bilateral W Evgeny (08/11/2017 3:43 PM [employer]) Anatomical Region Laterality Modality Breast Bilateral Mammography Addenda Addendum by Jose Alejandro Garsia MD on 11/06/2017 7:18 AM CDT ADDENDUM #1 Comparison is now made to a prior study from 03/20/2014 from [facility]. No interval suspicious mass or calcification has [...] Alejandro Garsia M.D. Impressions 08/11/2017 3:58 PM [employer] 1. NO DEFINITIVE MAMMOGRAPHIC EVIDENCE OF MALIGNANCY. IF PRIOR STUDIES BECOME AVAILABLE AN ADDENDUM WILL BE ISSUED OTHERWISE ANNUAL FOLLOW-UP RECOMMENDED. BI-RADS 2 Electronically signed by: Jose Alejandro Garsia M.D. Narrative 08/11/2017 3:58 PM [employer] SCREENING MAMMOGRAM BILATERAL W EVGENY HISTORY: Encounter [...] Electronically signed by: Jose Alejandro Garsia M.D. Result [facility] Katie Duarte SPECIAL EVENTS COORDINATOR IMG MAMMO PROCEDURES Edit ed Result - Final * PAP SMEAR WITH HPV (06/26/2017) Pap smear Unknown Comment:[place] 06/2017 Result [facility] Provider HEALTH MAINTENANCE Final Result * DIABETES FOOT EXAM (03/02/2017) Diabetic Foot Exam Normal SCRIBED DM FOOT SITES SENSED 6 Comment:6:6 Result [facility] Provider HEALTH MAINTENANCE Final Result * LIPID PANEL (09/10/2016) Lipid Panel Abnormal Comment:GL=758 HDL=37 XF=670 HKU=367 Result [facility] Provider HEALTH MAINTENANCE Final Result * DIABETES EYE EXAM (02/25/2016) Diabetic Eye Exam Normal Result [facility] Provider HEALTH MAINTENANCE Final Result from Last 3 Months or Most Recently Relevant to Health Maintenance Insurance [place] [address] Care Teams [employer] Att[employer] Relationship Specialty Start Date End Date Radha, Chetna Estrada NP [address] [place] [address] PCP - General Nurse Practitioner 10/16/22
--- OUTSIDE RECORDS SUMMARY | 2024-09-28 13:23 | XMS_ITS | Data Portability ---
Author Organization [facility] Address [address] [place] [address] Care Team Providers Care Nicker Name Role Phone CONDE, WILLIE Primary Care Provider Assessment Encounter Date Assessment Date Assessment LastModified by Organization Details LastModified Time 02/07/2021 02/07/2021 Annual gynecological exam performed. Patient will come back in a year unless there are new symptoms. Not available 02/07/2021 11:11:22 Plan of Treatment Reminders Order Date Submit Date Provider Last Modified By Organization Details Last Modified Time Details Appointments None recorded. Lab None recorded. Referral None recorded. Procedures None recorded. Surgeries None recorded. Imaging DEXA, axial skeleton + vertebral fracture assessment [address] [facility], [address] [place] [address], [address], 11:59:46 Medication Orders None recorded. Patient TargetsNo targets recorded. Patient InstructionsNo instructions recorded. Reason for Referral None Reported. 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 Locat ion: [place] Patho logy Recei piyush: 02/08 0759 First Scree n: Nacha mpaantonio ak, Ester cervantes, CT Speci men: Scree jacoby Pap - Image d, Cervi x STATE MENT OF ADEQU ACY: Satis facto ry for evalu ation Trans forma tion zone compo nent canno t be defin itive ly ident ified due to the prese nce of atrop hy or other hormo nal angulo es FINAL DIAGN OSIS: Negat zee for Intra epith elial Lesio n or Malig corina (NIL) Atrop hic cell wilver see Elect mee huerta maureen d by Odilia baca, Ester cervantes, CT on 2020 at 4:08 PM ----- ----- ----- ----- ----- ----- ----- ----- ----- ----- ----- ----- ----- ----- ----- ----- ----- ---- HPV RESUL TS: HPV mRNA E6/E7 : No HPV mRNA Detec ayush NOTE: This high risk HPV mRNA assay detec ts fourt een high- risk HPV types (16, 18, 31, 33, 35, 39, 45, 51, 52, 56, 58, 59, 66, 68) witho ut diffe renti ation . CHART ABLE COMME NT: Note: This speci men was revie wed by a Cytot echno logis t and/o r Patho logis t (as indic ated in this repor t) after evalu ation using the Thinp rep Imagi ng Syste m. CLINI JENSEN INFOR MATIO N: Menst rual Statu s: LMP (if appli cable ): Clini jensen Histo ry/Pr eviou s Pap: Type of Neopl cr (if appli cable ): Other Histo ry: Hormo bennett (if appli cable ): PAP EDUCA DILAN L NOTE: The Pap Test is a scree jacoby test with an inher ent false negat zee rate. Liqui d-bas e sampl ing may decre ase, but will not elimi sherley, false negat zee resul ts. A negat zee resul t does not precl ude the prese nce and/o r devel opmen t of disea se, since the prese nce of abnor mal cells in the sampl e depen ds on the locat ion of the lesio n and sampl ing techn ique. Say nued regul ar scree jacoby is the best metho d of cance r preve ntion . If repor ayush cytol ogic findi ng do not corre late with physi jensen and/o r histo rical findi ngs, furth er inves tigat ion is recom gabe d, as clini og warra nted. Not Available [facility] (Lab) [address], [place], [address], 02/11/2021 17:11:36 02/08/20 21 02/07/2021 CT/GC (CAROLINE) , THINP REP VIAL chlamydia trachomatis, PCR Negati ve negati ve Not Available [facility] (Lab) [address], [place], [address], 02/11/2021 17:11:36 02/08/20 21 02/07/2021 CT/GC (CAROLINE) , THINP REP VIAL neisseria gonorrhoeae, PCR Negati ve negati ve Not Available [facility] (Lab) [address], [place], [address], 02/11/2021 17:11:36 02/08/20 21 02/07/2021 TRICH OMONA S VAGIN EMILY (RRNA ) trichomonas vaginalis ribosomal RNA (rrna) Negati ve negati ve Not Available [facility] (Lab) [address], [place], [address], 02/11/2021 17:11:37 03/21/20 21 03/21/2021 DEXA, axial skele ton + verte bral fract ure asses sment No observ ation record ed. TYSON Os ([facility] Scheduling [address] [place], [address], 04/08/2021 11:09:59 Result Notes None recorded. Procedures Surgical History Date Name Laterality Status Provider Name and Address Organization Details Recorded Time oophorectomy completed Whitley Peterson [place] - [place] [facility] 02/07/2021 11:22:58 procedure on back completed Whitley Peterson I [facility] 02/07/2021 11:23:17 partial repair of rotator cuff completed Whitley Peterson [facility] 02/07/2021 11:23:30 Imaging Results Imaging Date Name Status LastModified by Organiz ation Details LastModified Time 03/21/2021 DEXA, axial skeleton + vertebral fracture assessment completed [facility] ([facility]) Scheduling [address] [place], [address], 04/08/2021 11:09:59 Procedure Notes None recorded. Medical Equipment None Reported. Allergies Allergen ID Allergen Name Allergen Category Reaction Reaction Severity Criticality Documentation Date Start Date Code Code System Note Provider Name and Address Organization Details Recorded Time 11756 codeine medicatio n Not available Not available Not available 02/07/2021 2670 RxNorm Whitley Peterson null, [facility] 11:12:42 Medications Name Sig Start Date Stop Date Status Note LastModified by Organization Details LastModified Time relion pen needle 31g/8mm mis USE DIRECTED active Not Available Not Available No t Available cyclobenzap rine 10 mg tablet TAKE 1 TABLET BY MOUTH AT BEDTIME NEEDED active Not Available Not Available No t Available amoxicillin 500 mg capsule TAKE 1 CAPSULE BY MOUTH EVERY 8 HOURS FOR 10 DAYS 02/07 completed Not Available Not Available Not Available cetirizine 10 mg tablet TAKE 1 TABLET BY MOUTH EVERY DAY NEEDED active Not Available Not Available No t Available azithromyci n 250 mg tablet TK 2 TS PO ON DAY 1, THEN TK 1 T PO D FOR 4 DAYS 02/07 completed Not Available Not Available Not Available ibuprofen 800 mg tablet TAKE 1 TABLET BY MOUTH THREE TIMES DAILY NEEDED active Not Available Not Available No t Available benzonatate 200 mg capsule TAKE 1 CAPSULE BY MOUTH THREE TIMES DAILY NEEDED FOR COUGH 02/07 completed Not Available Not Available Not Available prednisone 20 mg tablet TAKE 2 TABLETS BY MOUTH EVERY DAY FOR 5 DAYS FOR COUGH 02/07 completed Not Available Not Available Not Available OneTouch Ultra Test strips USE STRIP TO CHECK BLOOD GLUCOSE TWICE DAILY active Not Available Not Available No t Available benzonatate 100 mg capsule TAKE 1 CAPSULE BY MOUTH THREE TIMES DAILY 02/07 completed Not Available Not Available Not Available metformin 1,000 mg tablet TAKE 1 TABLET BY MOUTH TWICE DAILY active Not Available Not Available No t Available gabapentin 300 mg capsule TAKE 1 CAPSULE BY MOUTH THREE TIMES DAILY active Not Available Not Available No t Available albuterol sulfate HFA 90 mcg/actuati on aerosol inhaler INHALE 2 PUFFS EVERY 4 HOURS NEEDED FOR COUGH active Not Available Not Available No t Available fluticasone propionate 50 mcg/actuati on nasal spray,suspe nsion USE 1 SPRAY(S) IN EACH NOSTRIL ONCE DAILY active Not Available Not Available No t Available doxycycline hyclate 100 mg tablet TAKE 1 TABLET BY MOUTH TWICE DAILY FOR 7 DAYS 02/07 completed Not Available Not Available Not Available nitrofurant oin monohydrate /macrocryst als 100 mg capsule TAKE 1 CAPSULE BY MOUTH EVERY 12 HOURS FOR 5 DAYS 02/07 completed Not Available Not Available Not Available Ozempic 0.25 mg or 0.5 mg (2 mg/1.5 mL) subcutaneou s pen injector INJECT 1MG UNDER THE SKIN ONCE A WEEK active Not Available Not Available No t Available OneTouch Ultra2 Meter USE DIRECTED TO CHECK BLOOD SUGAR DAILY active Not Available Not Available No t Available pen needle, diabetic 31 gauge x 15/64 USE DIRECTED active Not Available Not Available No t Available Vitals Date Recorded Body height Body mass index (BMI) Body weight Provider Name and Address Organization Details Last Updated DateTime 02/07/2021 154.94 cm 22.1 kg/m2 85945.31 g Whitley Peterson [facility] 02/07/2021 11:12:25 Date Recorded Systolic blood pressure Diastolic blood pressure Provider Name and Address Organization Details Last Updated DateTime 02/07/2021 136 mm[Hg] 80 mm[Hg] Yina Soliz, [facility]- [address], [place], [address], [place] [facility] 02/07/2021 11:39:09 Social History Question Answer Notes LastModified by Organizat ion Details LastModified Time Tobacco Smoking Status Never Smoker Whitley [facility] 02/07/2021 11:22:14 What Is Your Level Of Alcohol Consumption? Occasional Information not available 02/07/2021 Are You Blind Or Do You Have Difficulty Seeing? No Information not available 02/07/2021 What Is Your Level Of Caffeine Consumption? Occasional Information not available 02/07/2021 Are You Deaf Or Do You Have Serious Difficulty Hearing? No Information not available 02/07/2021 What Type Of Diet Are You Following? REGULAR Information not available 02/07/2021 Do You Use Your Seat Belt Or Car Seat Routinely? Yes Information not available 02/07/2021 Do You Have Smoke And Carbon Monoxide Detectors In Your Home? Yes Information not available 02/07/2021 Do You Feel Stressed (tense, Restless, Nervous, Or Anxious, Or Unable To Sleep At Night)? [id number] Information not available 02/07/2021 Do You Use Any Illicit Or Recreational Drugs? No Information not available 02/07/2021 Do You Use Sunscreen Routinely? Yes Information not available 02/07/2021 Sex: Unknown Functional Status Question Answer Note LastModified by Organization D etails LastModified Time Are you able to walk? YESWOREST Information not available 02/07/2021 What is your exercise level? Moderate Information not available 02/07/2021 Mental Status None recorded. Family History Relationship Description Onset Age of this Age Resolved Age Notes LastModified by Organization Details LastModified Time Father Heart disease Not available 2020 11:21:01 Father Diabetes mellitus Not available 2020 11:21:09 Paternal Grandfather Malignant tumor of colon Not available 2020 11:21:41 Medical History No medical history recorded. Gynecological History Statement/Question Response Abnormal Pap Y Date of Last Mammogram Sexually Active? N STIs/STDs Y Menses Monthly N Date of Last Pap Smear Sexual Problems? N Current Control Method Menopause 12 LMP Definite Obstetrics History GPAL:G 3 P 3 0 0 3 Type Value Full Term 3 Living 3 Total 3 Past Encounters Encounter ID Performer Location Encounter Start Date Encounter Closed Date Diagnosis/Indication Diagnosis SNOMED-CT Code Diagnosis ICD10 Code Diagnosis Note [id number] Yina Soliz , [facility] [address] [address] 02/07/2021 10:21:43 02/07/2021 11:49:20 Gynecologic examination 31515315 Z01.419 Take Calcium with Vitamin D 12-1500mg daily. Do monthly self breast exams. It is advised to get annual flu shot in the fall and she could obtain at [facility] or [facility] care clinic. If you haven't received the Tdap vaccine in the last 10 years you should obtain one as well. Have mammogram yearly, bone density every 2-3 years and colonoscop y every 5-10 years depending on findings and history. Engage in daily exercise of low impact aerobic exercise 45-60 minutes 4-5 times weekly. Avoid tobacco and illicit drugs as well as using moderation with alcohol intake less than 1-2 8 oz beverages daily. This lifestyle behavior pattern will lead to less health conditions and longer life span. If BMI greater than 25 weight watchers or dietary consult advised. Questions have been answered. Patient appears to understand instructio ns, but if you have any further questions call or respond to this email Neg Paphpv hxPap/hpv/ STD sentNot SA x 3yrs (Partner unfaithful )Colon-UTD PCPDexa orderedmam mo ordered Note: Going to school early childhood specialist. Postmenopa usal osteopenia [id number] M85.80 No menses since age 30yo d/t Hx of oopherecto my emergent situationT hin white female, early menopause are risk factors for osteopenia /osteoporo sis.Recomm ended Complete a baseline Dexa.Agree able. 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 Post-MenopausalRe ported bypatient.Menopau odette Symptoms:no menopausal symptoms; normal vaginal lubrication Vaginal Bleeding:history of menopause having occurred; no history of post menopausal bleeding Urinary Symptoms:no hematuria; no incontinence; no nocturia; no urinary frequency Vulva:no genital lesion; no vulvar atrophy Vagina:normal vaginal discharge; no vaginal atrophy Breast:no breast lump; no nipple discharge; no breast pain Sexual Complaints:no sexual complaints Psychological Symptoms:no depression; no anxiety Preventive Measures:encourag e regular mammograms starting age 40; encourage self breast examination; encourage regular exercise; encourage no tobacco use; needs to schedule mammogram; history of recent colonoscopy; needs to schedule bone density (Hx of oopherectomy; no menses after age 30yo; Lost ovary when a baby due to umbilical hernia surgery mishap; took secondary ovary out after emergency due to cyst.) Yina Soliz, [facility]- [address], [place], [address], [facility] 02/07/2021 11:46:06 OBGyn Episode Ob Episode Information Episode Created Date Number of Fetuses Patient Bloodtype Patient rh Status Prepregnancy Weight lbs Domestic Partner Domestic Partner Phone Father Name Supervisor Shaving And Splitting Status 02/08/20 21 1 CLOSED Fetus Data First Name Last Name Admitted to NICU Weight (g) Sex Living Outcome Pediatric Complications Fetus ID Race Codes Race Delivery Type 3288.54 2 M Full Term [id number] Vaginal Delivery Jude Calculation Initial Jude Date Initial Exam Date Initial Exam Provider Initial Ultrasound Date Last Menstrual Period Date Ultra Sound Weeks Gestation 0 Eighteen To Twenty Week Jude Update Ultra Sound Date Fundal Height At Umbil Quickening Date Ultra Sound Latest Weeks Gestation Final Jude Confirmed By Final Jude Confirmed Date Final Jude Date Ultra Sound Latest Days Gestation 0 0 Menstrual History Last Menstrual Date Menses Monthly On Bcp Conception Prior Menses Frequency Hcg Plus Date Menarche Onset Age Delivery Information Delivery Date Delivery Type Labor Anesthesia Weeks Gestation Incision Type Labor Labor Length Hrs Delivered By Post Complications Tubal Sterilization Discharge Date Comments 1 37 Discharge Information Feeding Method Contraceptive Method Maternal HG B and HCT Levels Ob Episode Information Episode Created Date Number of Fetuses Patient Bloodtype Patient rh Status Prepregnancy Weight lbs Domestic Partner Domestic Partner Phone Father Name Supervisor Shaving And Splitting Status 02/08/20 21 1 CLOSED Fetus Data First Name Last Name Admitted to NICU Weight (g) Sex Living Outcome Pediatric Complications Fetus ID Race Codes Race Delivery Type 3713.55 7704 F Full Term [id number] Vaginal Delivery Jude Calculation Initial Jude Date Initial Exam Date Initial Exam Provider Initial Ultrasound Date Last Menstrual Period Date Ultra Sound Weeks Gestation 0 Eighteen To Twenty Week Jude Update Ultra Sound Date Fundal Height At Umbil Quickening Date Ultra Sound Latest Weeks Gestation Final Jude Confirmed By Final Jude Confirmed Date Final Jude Date Ultra Sound Latest Days Gestation 0 0 Menstrual History Last Menstrual Date Menses Monthly On Bcp Conception Prior Menses Frequency Hcg Plus Date Menarche Onset Age Delivery Information Delivery Date Delivery Type Labor Anesthesia Weeks Gestation Incision Type Labor Labor Length Hrs Delivered By Post Complications Tubal Sterilization Discharge Date Comments 4 37 Discharge Information Feeding Method Contraceptive Method Maternal HG B and HCT Levels Ob Episode Information Episode Created Date Number of Fetuses Patient Bloodtype Patient rh Status Prepregnancy Weight lbs Domestic Partner Domestic Partner Phone Father Name Supervisor Shaving And Splitting Status 02/08/20 21 1 CLOSED Fetus Data First Name Last Name Admitted to NICU Weight (g) Sex Living Outcome Pediatric Complications Fetus ID Race Codes Race Delivery Type 3175.14 4 F Full Term [id number] Vaginal Delivery Jude Calculation Initial Jude Date Initial Exam Date Initial Exam Provider Initial Ultrasound Date Last Menstrual Period Date Ultra Sound Weeks Gestation 0 Eighteen To Twenty Week Jude Update Ultra Sound Date Fundal Height At Umbil Quickening Date Ultra Sound Latest Weeks Gestation Final Jude Confirmed By Final Jude Confirmed Date Final Jude Date Ultra Sound Latest Days Gestation 0 0 Menstrual History Last Menstrual Date Menses Monthly On Bcp Conception Prior Menses Frequency Hcg Plus Date Menarche Onset Age Delivery Information Delivery Date Delivery Type Labor Anesthesia Weeks Gestation Incision Type Labor Labor Length Hrs Delivered By Post Complications Tubal Sterilization Discharge Date Comments 2 37 Discharge Information Feeding Method Contraceptive Method Maternal HG B and HCT Levels
--- OUTSIDE RECORDS SUMMARY | 2024-09-28 13:23 | XMS_ITS | Clinical Summary ---
Author Organization [facility] [employer] Address [address] [place] [address] Care Team Providers Care It Lead Name Role Phone Chetna Garcia APRN-CEMENT WORKER Primary Care Provider [phone] Source Comments [facility] [employer],non-owned Affiliates and Associated Physician Practices is amultiple site organization consisting of ambulatory clinics and hospital sitesin [place], [place], [place] and [place]. This disclosure is being madepursuant to the Care Everywhere program and may not contain all information available regarding this patient. Last updated 18.[facility] [employer] Allergies Active Allergy Reactions Criticality Noted Date Comments Codeine Nausea and/or Vomiting 06/04/2021 Medications * Be aware that medications may not be up to date on this document. Alwaysverify current medications with the patient. Medication Sig Dispensed Refills Start Date End Date Status albuterol HFA (PROVENTIL; VENTOLIN; PROAIR) 108 (90 Base) MCG/ACT inhaler INHALE 2 PUFFS EVERY 4 HOURS NEEDED FOR COUGH 11/25/2020 Active gabapentin (NEURONTIN) 300 MG capsule 300 mg 3 times daily Acti ve metFORMIN (GLUCOPHAGE) 1000 MG tablet 1,000 mg 2 times daily with morning and evening meal 12/03/2020 Active OZEMPIC, 0.25 OR 0.5 MG/DOSE, 2 MG/1.5ML pen 0.5 mg every 7 days 1 ml q 7 days 05/03/2021 Active Basaglar KwikPen (BASAGLAR) pen Inject 20 Units subcutaneously 2 times daily Active oxyCODONE, immediate release, (ROXICODONE) 5 MG tablet Take 1 (one) tablet by mouth every 6 hours as needed for Pain 20 tablet 07/03/2021 Active docusate sodium (COLACE) 50 MG capsule Take 1 (one) capsule by mouth once daily 20 capsule 07/03/2021 Active Active Problems No known active problems Immunizations Name Administration Dates Next Due Covid Moderna primary monovalent 12+ yr 0.5mL ,12/28/2020 INFLUENZA VACCINE 04/26/2017 INFLUENZA VACCINE, HIGH-DOSE , QUADR. (FLUZONE HIGH-DOSE QUADRIVALENT; 65Y+), 0.7 ML (HD-IIV4) 05/12/2016 Social History Tobacco Use Types Packs/Day Years [...] Comments Blood Pressure 131/89 07/18/2021 1:59 PM TOOL LAPPER HAND Pulse 102 07/18/2021 1:59 PM TOOL LAPPER HAND Temperature 36.7 C (98 F) 07/18/2021 1:59 PM TOOL LAPPER HAND Respiratory Rate 20 07/18/2021 1:59 PM TOOL LAPPER HAND Oxygen Saturation 99% 07/03/2021 4:59 PM TOOL LAPPER HAND Inhaled Oxygen Concentration - - Weight 51.3 kg (113 lb) 07/18/2021 1:59 PM TOOL LAPPER HAND Height 154.9 cm (5' 1 ) 07/18/2021 1:59 PM TOOL LAPPER HAND Body Mass Index 21.35 07/18/2021 1:59 PM TOOL LAPPER HAND Plan of Treatment Health Maintenance Due Date Last Done Comments COLOGUARD (AGES 45-75) - COL ON CA SCREENING 1967 COLON MONITORING 1967 COLONOSCOPY - COLON CA SCREENING 1967 CT COLONOGRAPHY - COLON CA SCREENING 1967 Colorectal Cancer Screening 1967 FIT - COLON CA SCREENING 1967 FLEX SIG - COLON CA SCREENING 1967 LIPID TESTING 1967 HIV SCREENING 1982 HEPATITIS C SCREENING 02/09/1985 DTAP/TDAP/TD VACCINES (1 - Tdap) 1986 HEPATITIS B VACCINE (1 of 3 - 19+ 3-dose series) 1986 PNEUMOCOCCAL VACCINE 50+ (1 of 1 - PCV) 2017 ZOSTER VACCINE (1 of 2) 2017 MAMMOGRAM 03/21/2023 03/21/2021 PAP SMEAR 02/08/2024 02/07/2021, 02/07/2021, 02/07/2021 COVID-19 VACCINE (3 - 2023-2 5 season) 2024 02/01/2021, 12/28/2020 INFLUENZA VACCINE (#1) 2024 7, 05/12/2016 DEPRESSION SCREENING 07/27/2024 HIB VACCINE Aged Out No longer eligi ble based on patient's age to complete this topic HPV VACCINE Aged Out No longer eligi ble based on patient's age to complete this topic MENINGOCOCCAL (Group B) VACCINE Aged Out No longer eligible b ased on patient's age to complete this topic MENINGOCOCCAL VACCINE Aged Out No desean romeo eligible based on patient's age to complete this topic PNEUMOCOCCAL VACCINE Aged Out No long er eligible based on patient's age to complete this topic Care Teams It Lead Relationship Specialty Start Date End Date Chetna Garcia APRN-CEMENT WORKER [address] [place] [address] PCP - General Nurse Practitioner Family 07/03/21
--- OUTSIDE RECORDS SUMMARY | 2024-09-28 13:23 | XMS_ITS | Referral Summary ---
Author Organization [facility] Address [address] [place] [address] Care Team Providers Care Retail Assistant Name Role Phone Chetna Garcia APRN-COLLEGE OR UNIVERSITY DEPARTMENT HEAD Primary Care Provider [phone]- [phone] Source Comments [facility] [employer],non-owned Affiliates and Associated Physician Practices is amultiple site organization consisting of ambulatory clinics and hospital sitesin [place], [place], [place] and [place]. This disclosure is being madepursuant to the Care Everywhere program and may not contain all information available regarding this patient. Last updated 18.[facility] Allergies Active Allergy Reactions Criticality Noted Date [...] Comments Blood Pressure 131/89 07/18/2021 1:59 PM CATERING SERVER Pulse 102 07/18/2021 1:59 PM CATERING SERVER Temperature 36.7 C (98 F) 07/18/2021 1:59 PM CATERING SERVER Respiratory Rate 20 07/18/2021 1:59 PM CATERING SERVER Oxygen Saturation 99% 07/03/2021 4:59 PM CATERING SERVER Inhaled Oxygen Concentration - - Weight 51.3 kg (113 lb) 07/18/2021 1:59 PM CATERING SERVER Height 154.9 cm (5' 1 ) 07/18/2021 1:59 PM CATERING SERVER Body Mass Index 21.35 07/18/2021 1:59 PM CATERING SERVER Plan of Treatment Not on file Care Teams Retail Assistant Relationship Specialty Start Date End Date Chetna Garcia APRN-COLLEGE OR UNIVERSITY DEPARTMENT HEAD [address] [place] [id number] PCP - General Nurse Practitioner Family 07/03/21
--- OUTSIDE RECORDS SUMMARY | 2024-09-28 13:24 | XMS_ITS | Data Portability ---
Author Organization [facility] [employer], Main Office Address [address] [place] [address] Care Team Providers Care Hospital Chief Financial Officer Name Role Phone EM BECERRIL Casting Director [phone] MOODY MINA Primary Care Provider MOODY MINA Referring Provider Assessment No assessment recorded. Plan of Treatment Reminders Order Date Submit Date Provider Last Modified By Organization Details Last Modified Time Details Appointments None recorded. Lab urinalysis, dipstick 2022 023 [email or web address] 9 [facility] [address], [address], [address], 3 12:31:49 culture, urine + sensitivity 2022 023 [facility] ([facility]), [address] [place] [address], [address], 3 11:08:49 Referral None recorded. Procedures None recorded. Surgeries None recorded. Imaging US, bladder 2022 023 [email or web address] [facility] [address], [address], [address], 3 12:32:59 US, renal 2022 023 [email or web address] [facility], [address] [place] [address] [place], [address], 4 17:15:57 Medication Orders cephalexin 500 mg capsule 2022 023 [facility] [place], [address], 12:32:48 Uribel 118 mg-10 mg-40.8 mg-36 mg capsule 2022 023 [facility], [address] [place], [address], 12:32:47 Patient TargetsNo targets recorded. Patient InstructionsNo instructions recorded. Reason for Referral None Reported. Results Created Date Observation Date Name Description Value Unit Range Abnormal Flag Note LastModifiedBy Organization Detail LastModifiedTime 03/09/2003/09/2023 urina lysis , dipst ick Leukocytes (reference range: negative daksha/ l) Trace Not Available [address], [address], 03/09/2023 11:01:52 03/09/2003/09/2023 urina lysis , dipst ick Nitrite (reference rage: negative mg/dl) negati ve Not Available [address], [address], 03/09/2023 11:01:52 03/09/2003/09/2023 urina lysis , dipst ick Urobilinogen (reference range: 0.2-1 mg/dl) 0.2 Not Available [address], [address], 03/09/2023 11:01:52 03/09/2003/09/2023 urina lysis , dipst ick Protein (reference range: negative mg/dl) Negati ve Not Available [address], [address], 03/09/2023 11:01:52 03/09/20 23 03/09/2023 urina lysis , dipst ick pH (reference range: 5-7) 7.0 Not Available [address], [address], 03/09/2023 11:01:52 03/09/20 23 03/09/2023 urina lysis , dipst ick Blood (reference range: negative Abdifatah/ l) Negati ve Not Available [address], [address], 03/09/2023 11:01:52 03/09/20 23 03/09/2023 urina lysis , dipst ick Specific Candor (reference range: 1.005-1.030) 1.015 Not Available [address], [address], 03/09/2023 11:01:52 03/09/20 23 03/09/2023 urina lysis , dipst ick Ketone (reference range: negative mg/dl) Negati ve Not Available [address], [address], 03/09/2023 11:01:52 03/09/20 23 03/09/2023 urina lysis , dipst ick Bilirubin (reference range: negative mg/dl) Negati ve Not Available [address], [address], 03/09/2023 11:01:52 03/09/20 23 03/09/2023 urina lysis , dipst ick Glucose (reference range: negative mg/dl) Negati ve Not Available [address], [address], 03/09/2023 11:01:52 03/09/20 23 03/09/2023 urina lysis , dipst ick Appearance Clear Not Available [address], [place] [address], [place], [address], 03/09/2023 11:01:52 03/09/20 23 03/09/2023 urina lysis , dipst ick Color Yellow Not Available [address], [address], 03/09/2023 11:01:52 03/09/20 23 03/09/2023 US, bladd er No observ ation record ed. [email or web address] [address], [address], 03/09/2023 16:09:48 03/16/20 23 03/16/2023 US, bladd er No observ ation record ed. [email or web address] [address], [place] [address], [place], [address], 03/17/2023 15:23:16 Result Notes None recorded. Problems Name Problem SNOMED Code Status Onset Date Resolution Date Notes Provider Name and Address Organization Details Recorded Time Wrist joint pain 841212963 Active Not Available [facility] 3 23:27:03 Closed fracture of lateral malleolus 90639520 Active Not Available [facility] 3 23:27:03 Fracture of lower leg 818325736 Active Not Available [facility] 3 23:27:03 Recurrent urinary tract infection 299083256 Active 023 Not Available [facility] 3 23:27:03 Problem Notes None recorded. Procedures Surgical History Date Name Laterality Status Provider Name and Address Organization Details Recorded Time Rotator cuff surgery completed Felicita Sofia MA [facility] [employer] [facility] 03/09/2023 11:58:14 oophorectomy completed Felicita Sofia MA [facility] 03/09/2023 12:00:01 Tubal Ligation completed Felicita Sofia MA [facility] 03/09/2023 12:00:21 Imaging Results Imaging Date Name Status LastModified by Organiz ation Details LastModified Time 03/09/2023 US, bladder completed [email or web address] [facility] [address], [address], [address], 03/09/2023 16:09:48 03/16/2023 US, bladder completed [email or web address] [facility] [address], [address] , [place], [address], 03/17/2023 15:23:16 Procedure Notes None recorded. Medical Equipment None Reported. Allergies Allergen ID Allergen Name Allergen Category Reaction Reaction Severity Criticality Documentation Date Start Date Code Code System Note Provider Name and Address Organization Details Recorded Time 08269 codeine medicatio n Not available Not available Not available 03/09/2023 2670 [facility] WAYNE Abdul, [facility] 11:51:56 Medications Name Sig Start Date Stop Date Status Note LastModified by Organization Details LastModified Time atorvastati n 40 mg tablet TAKE 1 TABLET BY MOUTH EVERY DAY IN THE EVENING active Not Available Not Available No t Available atorvastati n 20 mg tablet TAKE 1 TABLET BY MOUTH EVERY DAY AT BEDTIME 03/09 completed Not Available Not Available Not Available trazodone 50 mg tablet TAKE 1 TABLET BY MOUTH EVERY DAY active Not Available Not Available No t Available cetirizine 10 mg tablet TAKE 1 TABLET BY MOUTH EVERY DAY NEEDED active Not Available Not Available No t Available azithromyci n 250 mg tablet TK 2 TS PO ON DAY 1, THEN TK 1 T PO D FOR 4 DAYS 03/09 completed Not Available Not Available Not Available benzonatate 200 mg capsule TK 1 C PO TID PRN FOR COUGH 04/03 completed Not Available Not Available Not Available cephalexin 250 mg capsule TAKE 1 CAPSULE BY MOUTH ONCE DAILY active Not Available Not Available No t Available hydrocodone 5 mg-acetamin ophen 325 mg tablet TK 1-2 TS PO Q 6 H PRN 04/03 completed Not Available Not Available Not Available prednisone 20 mg tablet TK 2 TS PO D FOR 5 DAYS 04/03 completed Not Available Not Available Not Available penicillin V potassium 500 mg tablet 04/03 completed Not Available Not Available Not Available acetaminoph en 300 mg-codeine 30 mg tablet TK 1 T PO Q 6 H PRN P 04/03 completed Not Available Not Available Not Available ciprofloxac in 500 mg tablet TAKE 1 TABLET BY MOUTH EVERY 12 HOURS FOR 7 DAYS 03/09 completed Not Available Not Available Not Available sulfamethox azole 800 mg-trimetho prim 160 mg tablet TK 1 T PO BID FOR 10 DAYS 04/03 completed Not Available Not Available Not Available ketorolac 10 mg tablet TAKE 1 TABLET BY MOUTH EVERY 6 HOURS NEEDED FOR MODERATE TO SEVERE ACUTE PAIN FOR 5 DAYS 03/09 completed Not Available Not Available Not Available amoxicillin 875 mg tablet TAKE 1 TABLET BY MOUTH EVERY 12 HOURS 03/09 completed Not Available Not Available Not Available citalopram 20 mg tablet 04/03 completed Not Available Not Available Not Available trazodone 100 mg tablet TAKE 1 TABLET BY MOUTH EVERY DAY AT BEDTIME 03/09 completed Not Available Not Available Not Available doxycycline monohydrate 100 mg capsule TK ONE C PO BID FOR 10 DAYS 04/03 completed Not Available Not Available Not Available cephalexin 500 mg capsule TAKE 1 CAPSULE BY MOUTH TWICE DAILY FOR 7 DAYS active Not Available Not Available No t Available pantoprazol e 40 mg tablet,carlos yed release TK 1 T PO D 04/03 completed Not Available Not Available Not Available simvastatin 20 mg tablet TK 1 T PO QPM 04/03 completed Not Available Not Available Not Available metformin 1,000 mg tablet TAKE 1 TABLET BY MOUTH TWICE DAILY 04/03 completed Not Available Not Available Not Available triamcinolo ne acetonide 0.1 % topical ointment APPLY TOPICALLY TO THE AFFECTED AREA TWICE DAILY NEEDED FOR IRRITATIO N OR RASH 04/03 completed Not Available Not Available Not Available dexamethaso ne 4 mg tablet TK 2 TS PO DAILY FOR 3 DAYS 04/03 completed Not Available Not Available Not Available promethazin e 25 mg tablet TAKE 1 TABLET BY MOUTH EVERY 6 HOURS NEEDED FOR NAUSEA OR VOMITING OR ABDOMINAL PAIN active Not Available Not Available No t Available gabapentin 300 mg capsule TAKE 1 CAPSULE BY MOUTH THREE TIMES DAILY active Not Available Not Available No t Available montelukast 10 mg tablet TAKE 1 TABLET BY MOUTH EVERY DAY 03/09 completed Not Available Not Available Not Available ibuprofen 600 mg tablet 04/03 completed Not Available Not Available Not Available levofloxaci n 500 mg tablet TK ONE T PO ONCE D 04/03 completed Not Available Not Available Not Available methylpredn isolone 4 mg tablets in a dose pack TK UTD 04/03 completed Not Available Not Available Not Available cefdinir 300 mg capsule TAKE 1 CAPSULE BY MOUTH EVERY 12 HOURS 03/09 completed Not Available Not Available Not Available naproxen 500 mg tablet TAKE 1 TABLET BY MOUTH TWICE DAILY active Not Available Not Available No t Available metoclopram verito 10 mg tablet TK 1 T PO 15 MINUTES BEFORE MEALS AND AT BEDTIME 04/03 completed Not Available Not Available Not Available amoxicillin 875 mg-potassiu m clavulanate 125 mg tablet TAKE 1 TABLET BY MOUTH EVERY 12 HOURS 03/09 completed Not Available Not Available Not Available Ventolin HFA 90 mcg/actuati on aerosol inhaler INL 2 PFS PO Q 4 H PRF WHZ OR SOB 04/03 completed Not Available Not Available Not Available neomycin-po lymyxin-hyd rocort 3.5 mg-10,000 unit/mL-1 % ear drops,susp SHAKE LIQUID AND INSTILL 4 DROPS TO AFFECTED EAR THREE TIMES DAILY FOR 7 DAYS active Not Available Not Available No t Available pen needle, diabetic 31 gauge x 5/16 04/03 completed Not Available Not Available Not Available nitrofurant oin monohydrate /macrocryst als 100 mg capsule TAKE 1 CAPSULE BY MOUTH EVERY 12 HOURS FOR 3 DAYS active Not Available Not Available No t Available OneTouch Ultra2 Meter kit 04/03 completed Not Available Not Available Not Available Unifine Pentips 31 gauge x 1/4 needle USE TO INJECT BASAGLAR BID 04/03 completed Not Available Not Available Not Available Lantus Solostar U-100 Insulin 100 unit/mL (3 mL) subcutaneou s pen ADMINISTE R 20 UNITS UNDER THE SKIN TWICE DAILY active Not Available Not Available No t Available Virtussin AC 10 mg-100 mg/5 mL oral liquid TK 5 ML PO QID PRN COU 04/03 completed Not Available Not Available Not Available Trulicity 0.75 mg/0.5 mL subcutaneou s pen injector ADMINISTE R 0.75MG UNDER THE SKIN EVERY WEEK active Not Available Not Available No t Available Uro-MP 118 mg-10 mg-40.8 mg-36 mg capsule Take by oral route for 10 days. 2022 active Not Available Not Available Not Avai lable Fluvirin (PF) 45 mcg(15 mcg x3)/0.5 mL intramuscul ar syringe ADM 0.5ML IM UTD 04/03 completed Not Available Not Available Not Available OneTouch Ultra Blue Test Strip 04/03 completed Not Available Not Available Not Available Fluzone Quad (PF) 60 mcg(15 mcgx4)/0.5 mL intramuscul ar syringe ADM 0.5ML IM UTD 04/03 completed Not Available Not Available Not Available Ozempic 1 mg/dose (4 mg/3 mL) subcutaneou s pen injector INJECT 1 MG UNDER THE SKIN ONCE A WEEK 03/09 completed Not Available Not Available Not Available Ozempic 2 mg/dose (8 mg/3 mL) subcutaneou s pen injector INJECT 2 MG UNDER THE SKIN EVERY WEEK active Not Available Not Available No t Available Vitals Date Recorded Body height Provider Name an d Address Organization Details Last Updated DateTime 03/09/2023 154.94 cm Felicita Sofia [place] - [facility] [employer] 03/09/2023 11:51:49 Date Recorded Oxygen saturation Oxygen saturation in Arterial blood by Pulse oximetry Body mass index (BMI) Body weight Body temperature Heart rate Systolic blood pressure Diastolic blood pressure Provider Name and Address Organization Details Last Updated DateTime 3 98 % 98 % 24.2 kg/m2 91154.8 2 g 98.2 [degF] 89 /min 136 mm[Hg] 82 mm[Hg] NOEMÍ Najera [facility] [employer] [facility] 12:05:57 Social History Question Answer Notes LastModified by Organizat ion Details LastModified Time Tobacco Smoking Status Never Smoker WAYNE Abdul, [facility] [employer] [facility] 03/09/2023 12:02:42 What Is Your Level Of Alcohol Consumption? Occasional Information not available 03/09/2023 What Is Your Level Of Caffeine Consumption? Moderate Information not available 03/09/2023 Have You Ever Been Counseled For Unhealthy Alcohol Use? No Information not available 03/09/2023 Do You Use Any Illicit Or Recreational Drugs? No Information not available 03/09/2023 Has Tobacco Cessation Counseling Been Provided? No Information not available 03/09/2023 Do You Or Have You Ever Used Any Other Forms Of Tobacco Or Nicotine? No Information not available 03/09/2023 Sex: Unknown Functional Status None recorded. Mental Status None recorded. Family History Relationship Description Onset Age of this Age Resolved Age Notes LastModified by Organization Details LastModified Time Father Diabetes mellitus Not available 2022 11:56:38 Father Heart disease Not available 2022 11:57:00 Mother Heart disease Not available 2022 11:57:00 Mother Hypertensive disorder Not available 2022 11:57:15 Medical History Condition Response CYSTITIS N BLINDNESS N RHEUMATIC FEVER N KIDNEY STONES N BLADDER PROBLEMS N Enlarged Prostate N MRSA N LUNG DISEASE/DISORDER N HISTORY OF DRUG ABUSE N RADIATION / CHEMOTHERAPY N COPD N BLOOD DISEASES N SHINGLES N DEPRESSION (INCLUDING POST ) N BOWEL PROBLEMS N FAILED BACK SYNDROME N STROKE/TIA N THYROID DISEASE N BENIGN PROSTATIC HYPERPLASIA N OBESITY N GERD/NAUSEA N ANEURYSM N URINARY/BLADDER/KIDNEY PROBLEMS N Increased Urination N CORONARY ARTERY DISEASE (CAD) N Do you have Advance directive? N USE OF BLOOD THINNERS N EMPHYSEMA N GASTROINTESTINAL DISORDER N GASTROINTESTINAL BLEEDING N BLOOD CLOTS N Difficulty Urinating N ASTHMA N CATARACTS N Abdominal Pain N ERECTILE DYSFUNCTION N ARTERIAL INSUFFICIENCY N GI PROBLEMS N Low Testosterone N AIDS/HIV N LIVER DISEASE N MALE HYPOGONADISM N HYPERTENSION N TOURETTE'S N BLOOD TRANSFUSION N ANEMIA/BLOOD DISORDER N TUBERCULOSIS N GLAUCOMA N SLEEP APNEA N BACK INJECTIONS N INFECTIOUS DISEASE N HEART ARRHYTHMIA N PROSTATE N ESRD N INSOMNIA N HIGH CHOLESTEROL / HYPERLIPIDEMIA N HYPERTHYROIDISM N UTI N PVD N EDEMA N HYPOTHYROIDISM N BACK / NECK PROBLEMS N HAVE YOU BEEN HOSPITALIZED OR SEEN IN E ER IN THE PAST YEAR ? N DIALYSIS N POLYCYSTIC OVARIES N OSTEOPOROSIS N ARTHRITIS N NO SIGNIFICANT PAST MEDICAL HISTORY N DIABETES, TYPE Y VON WILLIBRAND'S DISEASE N PARKINSON N incontinence N HEPATITIS / LIVER DISEASE N POST LAMINECTOMY SYNDROME N GOUT N ALZHEIMER'S DISEASE N SLEEP DISORDER N HERPES N HEADACHES/MIGRAINES N SEIZURES/EPILEPSY N HEART MURMUR N PACEMAKER N DIZZINESS N HEART DISEASE/HEART PROBLEMS N KIDNEY DISEASE N MULTIPLE SCLEROSIS N NEUROPSYCHOLOGICAL N CANCER: SPECIFY N ANESTHESIA COMPLICATIONS N ATRIAL FIBRILLATION N AUTOIMMUNE DISEASE N Gynecological HistoryNo gynecological history recorded. Obstetrics History GPAL:G 0 P 0 0 0 0 Past Encounters Encounter ID Performer Location Encounter Start Date Encounter Closed Date Diagnosis/Indication Diagnosis SNOMED-CT Code Diagnosis ICD10 Code Diagnosis Note [id number] Kurt Callaway NP [facility] [address], [address] [place] [address] 03/09/2023 11:38:27 03/09/2023 12:32:58 Recurrent urinary tract infection 370050737 N39.0 UA today with tr gabriella. Will check urine culture and switch abx to cephalexin 500 mg bid. Med administra tion, use, and side effects discussed. I will call if abx need to be changed or discontinu ed. Will check MITUL for assessment of upper urinary tracts followed by cystoscopy for evaluation of the lower urinary tracts. Will give two months of suppressiv e abx after culture results to keep uti free while awaiting cystoscopy . We discussed uti prevention strategies and patient will add theraworx for uti prevention . Uribel prn for dysuria/bl adder spasms. Health Concerns Section Related Observation LastModified by Organization Detai ls LastModified Time None Recorded Concern Status LastModified by Organization Details LastModified Time None Recorded Advance Directives Directive None Recorded Payers Encounter Date Sequence Insurance Name Policy Number Policy Devries Covered Member ID Devries Member ID Guarantor Name 03/09/2023 1 [facility] (MEDICAID HMO) [id number] Dominique Simpson [id number] Dominique Simpson Notes Date Note Type Note Provider Name and Address Organization Details Recorded Time 03/09/2023 text/html :03/09/2023atie nt presents to the office as a referral for recurrent uti's. States that she has always been prone to uti's, but they have gotten worse starting this aug. She drinks plenty of water and takes cranberry supplements for uti prevention. She was recently started on Macrobid for uti and today is her last day. Reports she is still having SP pressure. :-DURATION: Many years--worse starting in Aug.-LABORATORY DIAGNOSIS (Culture vs. Dip): both-PREDOMINANT SYMPTOM: dysuria, urgency, freq, sp pressure-CURRENT TREATMENT: Macrobid-GI ISSUES: Constipation-DIABE EDMUND: Type II-NEUROLOGIC ISSUES:-PRIOR UROLOGIC OPERATIONS: oopherectomy-PRIOR UROLOGIC WORK UP: Denies UA- tr le, neg nit, neg bloodPVR- 60cc Culture Hx01/2023- E. Coli10/2022- E. Coli/Klebsiella1/2 023- coag neg staph Kurt Callaway, [employer] [address], [facility] [address], [place], [address], [place] - [employer] 03/09/2023 12:50:55 OBGyn Episode No OBEpisode recorded.
--- OUTSIDE RECORDS SUMMARY | 2024-09-28 13:24 | XMS_ITS | Continuity of Care Document ---
Author Name [facility] Organization [facility] Care Team Providers Care Fall Intern Name Role Phone [facility] Unavailable Unavailable Encounters Combined list of: 1) Encounters from Department of Veterans Affairs facilities going backup to the last 18 months, not all VA inpatient encounters are included; 2) Encounters from the Department of Defense facilities going backup to 280 months. Location Location Details Encounter Type Encounter Number Reason For Visit Attending Provider ADM Date DC Date Status Disposition Source [facility] Outpatient Encounter [id number] JUSTINE DHALIWAL 01/19 [facility] SUJATHA Garcia
--- OUTSIDE RECORDS SUMMARY | 2024-09-28 13:24 | XMS_ITS | CONTINUITY OF CARE DOCUMENT ---
Author Name shai shai Address Unknown Organization [facility] Address [address] [place] [address] Phone [phone] Care Team Providers Care Software Tester Name Role Phone Mika FERNANDO, Tanya Unavailable STEFAN FERNANDO, JUDITH Woody Unavailable CELI FERNANDO, MOODY Unavailable INSURANCE PROVIDERS Payer name Policy type / Coverage type [place] red republican ID BRUNA MONSON Workers' compensation health [facility] [id number]
--- OUTSIDE RECORDS SUMMARY | 2024-09-28 13:24 | XMS_ITS | Clinical Summary ---
Author Organization [facility] Address [address], [address] [address] Phone Care Team Providers Care Tool And Gauge Inspector Name Role Phone Chetna Garcia APRN, CNP Primary Care Provider [phone] Allergies No known active allergies Medications ursodiol (ACTIGALL) 250 MG Tablet Take 250 mg by mouth 2 times daily. 2 9 Active metFORMIN (GLUCOPHAGE) 1000 MG Tablet TAKE 1 TABLET BY MOUTH TWICE DAILY WITH THE MORNING AND EVENING MEAL 8 Active gabapentin (NEURONTIN) 300 MG Capsule TAKE 1 CAPSULE BY MOUTH THREE TIMES DAILY 8 Active BASAGLAR KWIKPEN 100 UNIT/ML Solution Pen-injector INJECT 25 UNITS SUBCUTANEOUSLY TWICE DAILY 1 9 Active omeprazole (PRILOSEC) 20 MG CAPSULE DELAYED RELEASE Take 1 Cap by mouth daily. 90 Cap 3 9 Active Bismuth 262 MG Chewable Tablet Take 3 tablets four times a day for 10 days 120 Tab 9 Active metroNIDAZOLE (FLAGYL) 250 MG Tablet Take 1.5 tablets four times a day for 10 days 60 Tab 9 Active doxycycline hyclate (VIBRAMYCIN) 100 MG Capsule Take 1 tablet 2 times a day for 10 days 20 Cap 9 Active Active Problems Problem Noted Date Diagnosed Date Pain in wrist 09/09/2016 Overview (01/25/2019): Left wrist pain Type 2 diabetes mellitus 02/12/2016 Overview (01/25/2019): Type 2 diabetes mellitus with diabetic neuropathy, with long-term current use of insulin Diabetic polyneuropathy 02/12/2016 Overview (01/25/2019): Diabetic polyneuropathy associated with type 2 diabetes mellitus Hyperlipidemia 02/12/2016 Overview (01/25/2019): Hyperlipidemia, unspecified hyperlipidemia type Rib pain 02/12/2016 Overview (01/25/2019): Rib pain on left side Family History Medical History Relation Name Comments Other-comment Brother 1 murdered No Known Problems Daughter 1 No Known Problems Daughter 2 Diabetes Father Heart Disease Father Dementia Mother Heart Disease Mother Hypertension Mother Breast Cancer Paternal Aunt Cancer Paternal Grandfather colon, unsure? Relation Name Status Comments Brother 1 Brother 2 Alive Brother 3 Alive Brother 4 Alive Daughter 1 Alive Daughter 2 Alive Father Mother Paternal Aunt Paternal Grandfather Sister 1 Alive Sister 2 Alive Sister 3 Alive Social History Tobacco Use Types Packs/Day Years Used Date Smoking Tobacco: Never Smokeless Tobacco: Never Alcohol Use Standard Drinks/Week Comments Yes 0 (1 standard drink = 0.6 oz pur e alcohol) occasional, once a year Sexually Active Control Partners Comments Not Currently Male Comments No Sex and Gender Information Value Date Recorded Sex Assigned at Not on file Legal Sex Female 10:20 PM CDT Gender Identity Not on file Sexual Orientation Not on file Last Filed Vital Signs Vital Sign Reading Time Taken Comments Blood Pressure 128/83 02/10/2019 12:23 PM CDT Pulse 82 02/10/2019 12:23 PM CDT Temperature 36 C (96.8 F) 02/10/2019 12:23 PM CDT Respiratory Rate 13 02/10/2019 12:23 PM CDT Oxygen Saturation 100% 02/10/2019 12:23 PM CDT Inhaled Oxygen Concentration - - Weight 55.3 kg (122 lb) 01/26/2019 11:00 AM CDT Height 154.9 cm (5' 1 ) 01/26/2019 11:00 AM CDT Body Mass Index 23.05 01/26/2019 11:00 AM CDT Plan of Treatment Health Maintenance Due Date Last Done Comments Diabetes: Eye Exam 1967 Diabetes: Foot Exam 1967 Diabetes: Hemoglobin A1c 1967 Hepatitis C Virus (HCV) Screening 1967 Diabetes: Nephropathy Screening 1985 Hepatitis B Immunization (1 of 3 - 19+ 3-dose series) 1986 Pap Smear 02/15/1988 Cervical Cancer Screening (CCS) 1997 HPV/Cotest 1997 Cologuard 2017 Immunochemical Fecal Occult Blood 2017 Zoster Immunization (2 of 3) 04/11/2017 2017 Pneumococcal Immunization (50+ years) (2 of 2 - PCV) 09/29/2019 09/28/2018 Mammogram 03/24/2024 03/24/2023, 03/21/2021 Influenza Immunization (#1) 2024 1007/2019, 04/20/2019, 05/05/2018, Additional history exists SARS-COV-2 Immunization ( season) 2024 02/01/2021, 12/28/2020 Colonoscopy 02/10/2029 02/10/2019 Colorectal Cancer Screening 02/10/2029 Respiratory Syncytial Virus (RSV) Immunization (Adult) (1 - 1-dose 75+ series) 2042 02/10/2019 Pneumococcal Immunization Combined Discontinued 09/28/2018 DTaP/Tdap/Td Immunization Discontinued 03/05/2021, TdaP Immunization Completed 03/05/2021, 1974 Meningococcal Immunization (ACWY) Aged Out No longer eligible based on patient's age to complete this topic Rotavirus Immunization Aged Out No lo nger eligible based on patient's age to complete this topic Procedures Procedure Name Priority Date/Time Associated Diagnosis Comments PRASHANTH SCREENING BILATERAL DIGITAL W CAD W MARISOL Routine 03/24/2023 3:33 PM CDT Visit for screening mammogram from Last 3 Months or Most Recently Relevant to Health Maintenance Results * PRASHANTH SCREENING BILATERAL DIGITAL W CAD W MARISOL (03/24/2023 3:33 PM CDT) Anatomical Region Laterality Modality breast Bilateral Mammography 03/24/2023 3:31 PM CDT Narrative 03/25/2023 11:33 AM CDT - PRASHANTH SCREENING BILATERAL DIGITAL W CAD W MARISOL BILATERAL DIGITAL SCREENING MAMMOGRAM 3D/2D WITH CAD WITH MEDIOLATERAL OBLIQUE CRANIOCAUDAL: 03/24/2023 The study was acquired using digital technology and interpreted from soft copy. Current study was also evaluated with ICAD version 7.2. 2D digital mammographic views, as well as 3D digital tomosynthesis were performed in the CC and MLO projections. CLINICAL: Routine screening. Patient has no complaints. No personal history of cancer. Paternal aunt had breast cancer. COMPARISONS: Comparison is made to exams dated: 03/21/[address] [facility], 08/11/2017 [facility], and 03/20/2014 [facility]. BREAST TISSUE:There are scattered fibroglandular densities in both breasts. FINDINGS: There are benign calcifications in both breasts. No significant masses, calcifications, or other findings are seen in either breast. There has been no significant interval change. IMPRESSION: BI-RAD 2 BENIGN There is no mammographic evidence of malignancy. A 1 year screening mammogram is recommended. A letter will be sent to the patient with these results. The patient will be entered into a reminder system with a target due date of 1 year for her next screening exam. Electronically signed by: Kaylan Zimmerman M.D. ab/penrad:03/25/2023 11:04:31 Physics Professor(s): RT Vani(R)(M), [facility] letter sent: Normal Exam Reading location: [facility] BI-RADS: 2 Benign Procedure Note Kaylan Zimmerman MD - 03/25/2023 - PRASHANTH SCREENING BILATERAL DIGITAL W CAD W MARISOL BILATERAL DIGITAL SCREENING MAMMOGRAM 3D/2D WITH CAD WITH MEDIOLATERAL OBLIQUE CRANIOCAUDAL: 03/24/2023 The study was acquired using digital technology and interpreted from soft copy. Current study was also evaluated with ICAD version 7.2. 2D digital mammographic views, as well as 3D digital tomosynthesis were performed in the CC and MLO projections. CLINICAL: Routine screening. Patient has no complaints. No personal history of cancer. Paternal aunt had breast cancer. COMPARISONS: Comparison is made to exams dated: 03/21/[address] [facility], 08/11/2017 [facility], and 03/20/2014 [facility]. BREAST TISSUE:There are scattered fibroglandular densities in both breasts. FINDINGS: There are benign calcifications in both breasts. No significant masses, calcifications, or other findings are seen in either breast. There has been no significant interval change. IMPRESSION: BI-RAD 2 BENIGN There is no mammographic evidence of malignancy. A 1 year screening mammogram is recommended. A letter will be sent to the patient with these results. The patient will be entered into a reminder system with a target due date of 1 year for her next screening exam. Electronically signed by: Kaylan Zimmerman M.D. ab/penrad:03/25/2023 11:04:31 Physics Professor(s): RT Vani(Steven)(M), [facility] letter sent: Normal Exam Reading location: [facility] BI-RADS: 2 Benign Chetna Garcia APRN, CNP IMDian MAMMO ORDERABLES Amarilys l Result from Last 3 Months or Most Recently Relevant to Health Maintenance Insurance MEDICAID [place] Care Teams Tool And Gauge Inspector Relationship Specialty Start Date End Date Garcia, ANSELMO Basilio CNP [address] [place] [id number] [phone] (work) PCP - General Family Medicine 01/25/19
== END 2024-09-28 11:42 | disposition home or self-care (01) ==
PROVIDERS: PCP Nurse Practitioner Family; Visit Provider Family Medicine
DX: R10.2 Pelvic and perineal pain (principal)
CPT/HCPCS: 72170

== ENCOUNTER 2024-12-02 16:26 | Emergency (ER) | payer OTHER, SELFPAY ==
--- NOTE | ~2024-12-02 | XR_ITS ---
EXAMINATION: XR humerus RT DATE: 12/02/2024 17:28 INDICATION: Right upper arm pain post heavy lifting TECHNIQUE: AP and lateral views of the right humerus were obtained. COMPARISON: 09/11/2020 FINDINGS: Alignment is normal. No fracture. Polyarticular osteoarthritis, mild at the right elbow and glenohume ral joints and moderate to severe with inferiorly directed osteophytes at the right acromioclavicular joint. Moderate sized anterior subacromial spur. Unchanged small amount of enthesopathic ossificatio n at the lateral epicondyle. Soft tissues are unremarkable. No elbow joint effusion. IMPRESSION: 1. Chronic degenerative skeletal changes at the right shoulder and elbow as detailed above. No acute osseous abnormality. Reviewed, dictated and finalized at location A. IMPRESSION: 1. Chronic degenerative skeletal changes at the right shoulder and elbow as det alia above. No acute osseous abnormality.
--- NOTE | ~2024-12-02 | XR_ITS ---
XR sacrum coccyx min 2V Ordering provider: Lavelle Avendano MD History: . pain in region of sacrum/coccyx post heavy lifting x1 day . Comparison: September 28, 2024 FINDINGS: BONES: Possibility of a fracture in the last segment of the sacrum is not excluded. Mild degenerative changes of the spine. JOINTS: The sacroiliac joint spaces are normal... SOFT TISSUES: Soft tissues are normal. IMPRESSION: Possible fracture in the last sacral segment. CT evaluation advised. Reviewed, dictated and finalized at location A.
--- NOTE | ~2024-12-02 | XR_ITS ---
3 VIEWS LUMBAR SPINE Ordering provider: Lavelle Avendano MD History: . low back pain post heavy lifting x1 day . Comparison: September 23, 2010. FINDINGS: VERTEBRAL BODIES: No visible fracture or subluxation. Degenerative changes of the spine. DISK SPACES: Narrowing of the disc L4-L5 and L5-S1. Multilevel facet joint disease. SOFT TISSUES: Atherosclerotic changes of the aorta. IMPRESSION: No acute osseous abnormality lumbar spine. Degenerative disc disease at the level of L4-L5 and L5-S1. Reviewed, dictated and finalized at location A.
--- NOTE | ~2024-12-02 | CT_ITS ---
CT pelvis wo con Ordering provider: Lavelle Avendano MD History: . Pain in pelvic region post heavy-lifting injury x1 day . Comparison: None. Technique: CT pelvis without oral and IV contrast. . Automated exposure control and iterative recons truction technique were employed. The dose-length product was 246.94 mGy-cm. Findings: BONES: Bending of the last segment of the sacrum is noted which may indicate old fracture. No definit e acute fractures seen. No pelvic fracture or hip dislocation. Age appropriate degenerative changes o f the visualized lower lumbar spine. Bilateral hip osteoarthritic changes. Mild bilateral sacroiliiti s. Pubic symphysitis. SUPERFICIAL SOFT TISSUES: Normal. PELVIC ORGANS: The bladder is normal. VISUALIZED BOWEL AND MESENTERY: Normal. No free air or free fluid. No lymphadenopathy. RETROPERITONEUM: Mild atheromatous disease. IMPRESSION: Bending of the last segment of the sacrum which is suggestive of old fracture. No definite acute frac tures seen. Reviewed, dictated and finalized at location A. IMPRESSION: Bending of the last segment of the sacrum which is suggestive of old fracture. No definite acute fractures seen.
[2024-12-02 16:27] VITALS: BP 143/82; PULSE 94; RESP 18; TEMP 36.6; O2SAT 97
--- NOTE | 2024-12-02 16:28 | ED_ITS ---
HPI - Back Pain/Injury General Chief Complaint: Back Pain/Injury Stated Complaint: back pain Time Seen by Provider: 12/02/24 16:28 Source: patient Mode of arrival: ambulatory Limitations: no limitations History of Present Illness HPI Narrative: Patient is a 59-year-old female with a lower back pain and left arm pain after moving boxes at work last night. She made an incident report at work and could not work today due to pain. MD elicited complaint: back pain ( mid to lower back and sacrum regions) and other ( Right arm) Pertinent past history: recent trauma ( work related injury) Onset (ago): day(s) (2) Timing: constant Severity: moderate Pain scale (0-10): 6 Similar Symptoms Previously: No Quality: sharp, aching and throbbing Location: lumbar spine and sacrum Radiation: none Exacerbating factors: movement Relieving factors: immobilization Context: while lifting Associated symptoms: difficulty walking ( due to pain) Treatments prior to arrival: NSAIDS and acetaminophen Work related injury: Yes Related Data Home Medications ?Medication ?Instructions ?Recorded ?Confirmed ?Last Taken ?Type gabapentin 300 mg capsule 300 mg PO TID 09/04/19 07/01/23 Unknown History cetirizine 10 mg tablet 10 mg PO DAILY 04/23/22 07/01/23 Unknown History trazodone 50 mg tablet 50 mg PO DAILY 04/23/22 07/01/23 Unknown History insulin glargine 100 unit/mL (3 20 unit subcut BID 04/29/24 Unknown History mL) subcutaneous pen (Lantus Solostar U-100 Insulin) atorvastatin 40 mg tablet 40 mg PO QPM 12/02/24 Unknown History glipizide 5 mg tablet, extended 5 mg PO DAILY 12/02/24 Unknown History release 24 hr Allergies Allergy/AdvReac Type Severity Reaction Status Date / Time codeine AdvReac Mild Nausea and Verified 12/02/24 16:32 Vomiting Review of Systems Review of Systems: All systems reviewed & are unremarkable except as noted in HPI and below Constitutional: Constitutional: Reports no additional constitutional complaints Eyes: Eyes: Reports no additional eye complaints ENT: Reports system reviewed and no additional complaints, except as documented Cardiovascular: Cardiovascular: Reports no additional cardiovascular complaints Respiratory: Respiratory: Reports no additional respiratory complaints Gastrointestinal: Gastrointestinal: Reports no additional gastrointestinal complaints Genitourinary: Genitourinary: Reports no additional female genitourinary complaints Musculoskeletal: Musculoskeletal: Reports no additional musculoskeletal complaints Integumentary/Breasts: Skin/Breast: Reports system reviewed and no additional complaints, except as docu Neurologic: Reports system reviewed and no additional complaints, except as documented Psychiatric: Psychiatric: Reports no additional psychiatric complaints Endocrine: Endocrine: Reports no additional endocrine complaints Hematologic/Lymphatic: Hematologic/Lymphatic: Reports no additional hematologic/lymphatic complaints Allergic/Immunologic: Allergic/Immunologic: Reports no additional allergic/immunologic complaints PMFSH Past Medical History Medical History History of COVID-19 Diabetes Bronchitis Peripheral neuropathy HTN (hypertension) HLD (hyperlipidemia) Surgical History Surgical History History of lumbar surgery L4-L5 fusion History of rotator cuff surgery lt rotator cuff, 2 screws History of hysterectomy History of tubal ligation History of bilateral oophorectomy History of inguinal hernia repair As baby Family History Family History Mother Hypertension Father Family history of diabetes mellitus in first degree relative Family history of coronary artery disease Social History Social History Smoking status: Never smoker Alcohol intake: never Gender identity (if verbalized by the patient): Female Exam Const: General: healthy appearing Nutritional Appearance: well nourished Orientation/consciousness: patient oriented x3 Limitations: no limitations HENMT: Head: normal to inspection Ears: external ears normal Face/Nose/Sinus: Normal external nose present Eyes: Conjunctivae: conjunctivae normal Pupils: Equal, round and reactive pupils present EOM: EOMs intact bilaterally Neck: Neck: normal visual inspection Chest: Chest palpation & inspection: normal inspection of the chest Resp: Effort & Inspection: normal respiratory effort and not labored Auscultation: clear to auscultation bilaterally and no crackles Cardio: Rate: regular rate Rhythm: regular rhythm Heart sounds: no mur murs GI: Inspection: non-distended GI Palp: Yes Soft to palpation and No Tenderness to palpation present (GI) Auscultation: normal bowel sounds : General: Yes bladder normal to palpation Back/Spine/Pelvis: Back: no CVA tenderness Other: tender midline lumbosacral spine Skin: General skin exam: normal color Rashes: no rashes Wounds: no wounds Neuro: General: patient oriented x3 Cranial nerves: Yes Nystagmus not present Speech: normal speech Gait exam (Neuro): gait abnormal Other: gait abnormality due to pain of the lumbar and sacral spine Extrem: General: normal to inspection Other: tender right arm of the humerus to palpation Psych: Mental Status: mental status grossly normal Affect: normal affect Attitude: cooperative Course Vital Signs Vital signs: Vital Signs Temperature 36.6 C 12/02/24 16:27 Pulse Rate 94 12/02/24 16:27 Respiratory Rate 18 12/02/24 16:27 Blood Pressure 143/82 H 12/02/24 16:27 Pulse Oximetry 97 12/02/24 16:27 Oxygen Delivery Room Air 12/02/24 16:27 Temperature 36.6 C 12/02/24 16:27 Pulse Rate 94 12/02/24 16:27 Respiratory Rate 18 12/02/24 16:27 Blood Pressure 143/82 H 12/02/24 16:27 Pulse Oximetry 97 12/02/24 16:27 Oxygen Delivery Room Air 12/02/24 16:27 MDM - Back Pain/Injury MDM Narrative Medical decision making narrative: patient is a 59-year-old female with a work related injury to her lower back and right humerus. We will get x-rays at this time. Imaging Data Attestation: I personally reviewed and interpreted this imaging study as follows: Radiologist's impression: X-ray of right humerus was negative for acute process x-ray of lumbar spine was negative for acute process x-ray of sacrum and coccyx was negative for acute process except a possibility existed for a sacrum fracture requiring a CT scan CT scan of sacrum and pelvis was negative for acute process and old fracture seen only no acute fracture seen Discharge Plan Discharge Clinical Impression: Strain of lumbar region Qualifiers: Encounter type: initial encounter Qualified Code(s): S39.012A - Strain of muscle, fascia and tendon of lower back, initial encounter Biceps strain Qualifiers: Encounter type: initial encounter Laterality: right Qualified Code(s): S46.211A - Strain of muscle, fascia and tendon of other parts of biceps, right arm, initial encounter Patient Disposition: Home Condition: Stable Instructions: Acute Low Back Pain (ED) Patient Language: [place]ian Prescriptions: New hydrocodone-acetaminophen 5-325 mg tablet 1 tablet PO Q8H PRN (Reason: pain) Qty: 20 0RF meloxicam 15 mg tablet 15 mg PO DAILY 15 Days Qty: 15 0RF No Action atorvastatin 40 mg tablet 40 mg PO QPM glipizide 5 mg tablet extended release 24hr 5 mg PO DAILY gabapentin 300 mg Capsule 300 mg PO TID cetirizine 10 mg tablet 10 mg PO DAILY trazodone 50 mg tablet 50 mg PO DAILY insulin glargine [Lantus Solostar U-100 Insulin] 100 unit/mL (3 mL) insulin pen 20 unit SUBCUT BID Follow-up/Referrals: Garcia,Chetna Coffman APN [Primary Care Provider] - Time of Disposition: 18:48
--- OUTSIDE RECORDS SUMMARY | 2024-12-02 16:30 | XMS_ITS | Clinical Summary ---
Author Organization [facility] Address [address] [place] [id number] Care Team Providers Care Tiger Machine Operator Name Role Phone La Chiang MD Primary Care Provider [phone] Social History Tobacco Use Types Packs/Day Years [...] Screening with HPV 1997 Mammogram Screening 2007 Pneumococcal Vaccine: 50+ Ye ars (1 of 1 - PCV) 2017 Zoster Vaccines (1 of 2) 2017 COVID-19 Vaccine ( - 2023-2 5 season) 2024 Meningococcal B Vaccine Aged Out No l onger eligible based on patient's age to complete this topic Meningococcal Vaccine Aged Out No desean romeo eligible based on patient's age to complete this topic RSV Immunizations Under 20 Months Aged Out No longer eligible based on patient's age to complete this topic Care Teams Tiger Machine Operator Relationship Specialty Start Date End Date La Chiang MD [address] [address] PCP - General 5/9/12
--- OUTSIDE RECORDS SUMMARY | 2024-12-02 16:30 | XMS_ITS | Clinical Summary ---
Author Organization [facility] [place] Address [address] [facility] [place] [address] Care Team Providers Care Interpretive Program Coordinator Name Role Phone Chetna Garcia APRN-PACKAGE HANDLER Primary Care Provider [phone] Source Comments [facility]non-owned Affiliates and Associated Physician Practices is amultiple site organization consisting of ambulatory clinics and hospital sitesin [place], [place], [place] and [place]. This disclosure is being madepursuant to the Care Everywhere program and may not contain all information available regarding this patient. Last updated 18.[facility] Allergies Active Allergy Reactions Criticality Noted Date Comments Codeine Nausea and/or Vomiting 06/04/2021 Medications * Be aware that medications may not be up to date on this document. Alwaysverify current medications with the patient. albuterol HFA (PROVENTIL; VENTOLIN; PROAIR) 108 (90 Base) MCG/ACT inhaler INHALE 2 PUFFS EVERY 4 HOURS NEEDED FOR COUGH 1 Active gabapentin (NEURONTIN) 300 MG capsule 300 mg 3 times daily Active metFORMIN (GLUCOPHAGE) 1000 MG tablet 1,000 mg 2 times daily with morning and evening meal 1 Active OZEMPIC, 0.25 OR 0.5 MG/DOSE, 2 MG/1.5ML pen 0.5 mg every 7 days 1 ml q 7 days 1 Active Basaglar KwikPen (BASAGLAR) pen Inject 20 Units subcutaneously 2 times daily Active oxyCODONE, immediate release, (ROXICODONE) 5 MG tablet Take 1 (one) tablet by mouth every 6 hours as needed for Pain 20 tablet 1 Active docusate sodium (COLACE) 50 MG capsule Take 1 (one) capsule by mouth once daily 20 capsule 1 Active Active Problems No known active problems Immunizations Immunization Administration Dates Next Due Covid Moderna primary monovalent 12+ yr 0.5mL ,12/28/2020 INFLUENZA VACCINE 04/26/2017 INFLUENZA VACCINE, HIGH-DOSE , QUADR. (FLUZONE HIGH-DOSE QUADRIVALENT; 65Y+), 0.7 ML (HD-IIV4) 05/12/2016 Social History Tobacco Use Types Packs/Day Years Used Date Smoking Tobacco: Never Smokeless Tobacco: Never Alcohol Use Standard Drinks/Week Comments Yes 0 (1 standard drink = 0.6 oz pur e alcohol) rarely Comments No Sex and Gender Information Value Date Recorded Sex Assigned at Not on file Legal Sex Female 10:30 AM CDT Gender Identity Not on file Sexual Orientation Not on file Last Filed Vital Signs Vital Sign Reading Time Taken Comments Blood Pressure 131/89 07/18/2021 1:59 PM FUEL OIL CLERK Pulse 102 07/18/2021 1:59 PM FUEL OIL CLERK Temperature 36.7 C (98 F) 07/18/2021 1:59 PM FUEL OIL CLERK Respiratory Rate 20 07/18/2021 1:59 PM FUEL OIL CLERK Oxygen Saturation 99% 07/03/2021 4:59 PM FUEL OIL CLERK Inhaled Oxygen Concentration - - Weight 51.3 kg (113 lb) 07/18/2021 1:59 PM FUEL OIL CLERK Height 154.9 cm (5' 1 ) 07/18/2021 1:59 PM FUEL OIL CLERK Body Mass Index 21.35 07/18/2021 1:59 PM FUEL OIL CLERK Plan of Treatment Health Maintenance Due Date [...] (1 of 2) 2017 MAMMOGRAM 03/21/2023 03/21/2021 COVID-19 VACCINE (3 - 2023-2 5 season) 2024 02/01/2021, 12/28/2020 DEPRESSION SCREENING 07/27/2024 INFLUENZA VACCINE (Season Ended) 2025 04/26/2017, 05/12/2016 HIB VACCINE Aged Out No longer eligi ble based on patient's age to complete this topic HPV VACCINE Aged Out No longer eligi ble based on patient's age to complete this topic MENINGOCOCCAL (Group B) VACCINE SHARED DECISION-MAKING Aged Out No longer eligible based on patient's age to complete this topic MENINGOCOCCAL GROUPS A/C/Y/W VACCINE Aged Out No longer eligible b ased on patient's age to complete this topic Insurance [facility] Care Teams Interpretive Program Coordinator Relationship Specialty Start Date End Date Chetna Garcia APRN-[address] [place] [address] PCP - General Nurse Practitioner Family 07/03/21
--- OUTSIDE RECORDS SUMMARY | 2024-12-02 16:30 | XMS_ITS | Continuity of Care Document ---
Author Organization [facility] Address [address] [facility] [address] [place] [address] Phone Care Team Providers Care Partition Making Machine Operator Name Role Phone Marcum OD, Arun Unavailable Unavailable Procedures Procedure Date Eye Exam & Treatment Refraction Eye Exam & Treatment Advance Directives Directive Yes / No Effective Date File Name No Information Encounters Encounter Description Practice Location Reason(s) For Visit Diagnoses Date Provider Providers Copied on Encounter [facility], [address] [place] [address] [address], [place], [place], [id number], tel:[phone] [facility] No Information 9-201 0 Marcum OD Arun. [address] [facility] , [address], [place], [address], [place]. tel:[phone] [facility], [address] [place] [address] [address], [place], [place], [id number], tel:[phone] [address] [facility] No Information 4-200 7 Alfredo Riojas. [address] [facility], [address], [place], [place], [id number], [place]. tel:[phone] Family History Family Member Type Diagnosis Age At Onset No Information Payers Payer name Insurance type Covered constitution party ID Authoriza tion(s) Medicaid [facility] [id number] Social History Type Description Quantity Date Captured [...]
--- OUTSIDE RECORDS SUMMARY | 2024-12-02 16:30 | XMS_ITS | Clinical Summary ---
Author Organization [facility] [address] [facility] lto Address [address] [place] [address] Care Team Providers Care Cosmetic Account Coordinator Name Role Phone Chetna Garcia NP Primary Care Provider [phone] Allergies Active Allergy Reactions Criticality Noted Date Comments Codeine Nausea And Vomiting 06/04/2021 Medications insulin syringe-needle U-100 1 mL 25 gauge x 5/8 syringe lantus insulin twice daily 100 Syringe 6 10/31/19 17 Active TRUE METRIX GLUCOSE TEST STRIP strip 6 03/12/20 17 Active FLUVIRIN 2107-4093, PF, 45 mcg (15 mcg x 3)/0.5 [...] neuropathy, with long-term current use of insulin ([facility]),Diabetic polyneuropathy associated with type 2 diabetes mellitus (HCC) Inject 0.24 mL (24 Units total) under the skin 2 (two) times a day. 3 pen 3 11/13/19 18 Active gabapentin (NEURONTIN) 300 mg capsuleIndications :Type 2 diabetes mellitus with diabetic neuropathy, with long-term current use of insulin ([facility]),Diabetic polyneuropathy associated with type 2 diabetes mellitus (HCC),Type 2 diabetes mellitus with diabetic polyneuropathy, with long-term current use of insulin ([facility]) TAKE 1 CAPSULE BY MOUTH [...] Plan (01/14/2023 3:39 PM CDT): Hearing test [facility] in [place] Otitis media 08/11/2017 Referred otalgia of left ear 08/11/2017 Assessment & Plan (01/14/2023 3:39 PM CDT): Hearing test [facility] in [place] Pain in wrist 09/09/2016 Overview (10/31/2016): Left [...] on file 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 Gender Identity Not on file Sexual Orientation [...] 5 season) 2024 02/01/2021, 12/28/2020 Influenza Vaccine (Season Ended) 2025 04/26/2020, 04/20/2019, 05/05/2018, Additional history exists DTaP/Tdap/Td Vaccine [...] Read Routine (OP Routine) 08/11/2017 3:43 PM [place] MACHINE OPERATOR Screening breast examination PAP SMEAR WITH HPV [...] Mammogram Bilateral W Evgeny (08/11/2017 3:43 PM [place] MACHINE OPERATOR) Anatomical Region Laterality Modality Breast Bilateral Mammography Addenda Addendum by Jose Alejadnro Garsia MD on 11/06/2017 7:18 AM CDT ADDENDUM #1 Comparison is now made to a prior study from 03/20/2014 from [facility]. No interval suspicious mass or calcification has [...] Alejandro Garsia M.D. Impressions 08/11/2017 3:58 PM [place] MACHINE OPERATOR 1. NO DEFINITIVE MAMMOGRAPHIC EVIDENCE OF MALIGNANCY. IF PRIOR STUDIES BECOME AVAILABLE AN ADDENDUM WILL BE ISSUED OTHERWISE ANNUAL FOLLOW-UP RECOMMENDED. BI-RADS 2 Electronically signed by: Jose Alejandro Garsia M.D. Narrative 08/11/2017 3:58 PM [place] MACHINE OPERATOR SCREENING MAMMOGRAM BILATERAL W EVGENY HISTORY: Encounter [...] by: Jose Alejandro Garsia M.D. Katie Duarte DIGITAL MARKETING ASSISTANT IMG MAMMO PROCEDURES Edit ed Result - Final * PAP SMEAR WITH HPV (06/26/2017) Pap smear Unknown Comment:[place] 06/2017 Result [facility] Provider HEALTH MAINTENANCE Final Result * DIABETES FOOT EXAM (03/02/2017) Diabetic Foot Exam Normal SCRIBED DM FOOT SITES SENSED 6 Comment:6:6 Result [facility] Provider HEALTH MAINTENANCE Final Result * LIPID PANEL (09/10/2016) Lipid Panel Abnormal Comment:TP=977 HDL=37 WS=742 FKC=617 Result [facility] Provider HEALTH MAINTENANCE Final Result * DIABETES EYE EXAM (02/25/2016) Diabetic Eye Exam Normal Result [facility] Provider HEALTH MAINTENANCE Final Result from Last 3 Months or Most Recently Relevant to Health Maintenance [place] [address] Care Teams Cosmetic Account Coordinator Relationship Specialty Start Date End Date Chetna Garcia NP [address] [place] [address] PCP - General Nurse Practitioner 10/16/22
--- OUTSIDE RECORDS SUMMARY | 2024-12-02 16:30 | XMS_ITS | Referral Summary ---
Author Organization [facility] [address] [facility] lto Address [address] [place] [address] Care Team Providers Care Felt Dyeing Machine Tender Name Role Phone Chetna Garcia NP Primary Care Provider Allergies Active Allergy Reactions Criticality Noted Date Comments Codeine Nausea And Vomiting 06/04/2021 Medications insulin syringe-needle U-100 1 mL 25 gauge x 5/8 syringe lantus insulin twice daily 100 Syringe 6 10/31/19 17 Active TRUE METRIX GLUCOSE TEST STRIP strip 6 03/12/20 17 Active FLUVIRIN 8105-5619, PF, 45 mcg (15 mcg x 3)/0.5 [...] neuropathy, with long-term current use of insulin ([facility]),Diabetic polyneuropathy associated with type 2 diabetes mellitus (HCC) Inject 0.24 mL (24 Units total) under the skin 2 (two) times a day. 3 pen 3 11/13/19 18 Active gabapentin (NEURONTIN) 300 mg capsuleIndications :Type 2 diabetes mellitus with diabetic neuropathy, with long-term current use of insulin ([facility]),Diabetic polyneuropathy associated with type 2 diabetes mellitus (HCC),Type 2 diabetes mellitus with diabetic polyneuropathy, with long-term current use of insulin (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 No interval suspicious mass or calcification has [...] Alejandro Garsia M.D. Impressions 08/11/2017 3:58 PM SALES ASSISTANT DISPLAYS 1. NO DEFINITIVE MAMMOGRAPHIC EVIDENCE OF MALIGNANCY. IF PRIOR STUDIES BECOME AVAILABLE AN ADDENDUM WILL BE ISSUED OTHERWISE ANNUAL FOLLOW-UP RECOMMENDED. BI-RADS 2 Electronically signed by: Jose Alejandro Garsia M.D. Narrative 08/11/2017 3:58 PM SALES ASSISTANT DISPLAYS SCREENING MAMMOGRAM BILATERAL W EVGENY HISTORY: Encounter [...] (06/26/2017) Pap smear Unknown Comment:[place] 06/2017 [facility] Provider HEALTH MAINTENANCE Final Result * DIABETES FOOT EXAM (03/02/2017) Diabetic Foot Exam Normal SCRIBED DM FOOT SITES SENSED 6 Comment:6:6 Result [facility] Provider HEALTH MAINTENANCE Final Result * LIPID PANEL (09/10/2016) Lipid Panel Abnormal Comment:VF=624 HDL=37 ZX=597 AXM=500 [facility] Provider HEALTH MAINTENANCE Final Result * DIABETES EYE EXAM (02/25/2016) Diabetic Eye Exam Normal [facility] Provider HEALTH MAINTENANCE Final Result from Last 3 Months or Most Recently Relevant to Health Maintenance Insurance [facility] Care Teams Felt Dyeing Machine Tender Relationship Specialty Start Date End Date Garcia, Chetna Estrada NP [address] [place] [address] PCP - General Nurse Practitioner 10/16/22
--- OUTSIDE RECORDS SUMMARY | 2024-12-02 16:30 | XMS_ITS | Continuity of Care Document ---
Author Name [facility] Organization [facility] Care Team Providers Care Market Asset Protection Manager Name Role Phone [facility] Unavailable Unavailable Encounters [...] ADM Date DC Date Status Disposition Source [facility] Outpatient Encounter [id number] JUSTINE DHALIWAL 01/19 [facility] Garcia
--- OUTSIDE RECORDS SUMMARY | 2024-12-02 16:31 | XMS_ITS | Continuity of Care Document ---
Author Organization [facility] [place] Address [address] [place] [address] [address] [place] [address] Phone Care Team Providers Care Yard Supervisor Cotton Gin Name Role Phone Primitivo CATARINOKylie Thompson Unavailable [...] Diagnoses Date Provider Providers Copied on Encounter [facility] [address], [place], [id number], [phone] [place] No Information - 4 Langford Kylie. [address] [place] [address], [address], [place], [facility], . tel: [phone] [facility] [address], [place], [id number], tel:[phone] [place] No Information 2-201 4 Langford Kylie. [address] [facility], [address], [place], [place], [facility], [place]. tel: [phone] [facility] [address], [place], [place], [id number], tel:[phone] [place] No Information 0 9-201 4 Langford Kylie. [address] [facility], [address], [place], [place], [facility], . tel: [phone] [facility] [address], [place], [place], [address], [place] tel:[phone] [place] No Information May-0 7-201 4 Langford Kylie. [address] [place] [address], [address], [place], [address], [place]. tel: [phone] [facility] [address], [place], [place], [address], [place] tel:[phone] [place] No Information Apr-3 0-201 4 Langford Kylie. [address] [place] [address], [address], [place], [address], [place]. tel: [phone] [address], [place], [place], [address], [place] tel:[phone] [place] No Information Apr-2 8-201 4 Langford Kylie. [address] [place] [address], [address], [place], [address], [place]. tel: [phone] [facility] [address], [place], [address], [place] tel:[phone] [place] No Information Apr-2 4-201 4 Langford Kylie. [address] [place] [address], [address], [place], [address], [place]. tel: [phone] [address], [place], [place], [address], [place] tel:[phone] [place] No Information Apr-2 3-201 4 Langford Kylie. [address] [place] [address], [address], [place], [address], [place]. tel: [phone] [facility] [address], [place], [address], [place] tel:[phone] [place] No Information Apr-2 1-201 4 Langford Kylie. [address] [place] [address], [address], [place], [address], [place]. tel: [place] [phone] [facility] [address], [place], [place], [address], tel:[phone] [place] No Information 8 4 Langford Kylie. [address] [place] [address], [address], [place], [facility], . tel: [phone] [facility] [address] [place], [place] [address], [place], [address], tel:[phone] [place] No Information 6 4 Langford Kylie. [address] [place] [address], [address], [place], [facility], . tel: [phone] [address], [place], [place], [address], tel:[phone] [place] No Information 4 Langford Kylie. [address] [place] [address], [facility] [address], [place], [facility], . tel: [phone] [address], [place], [place], [address], tel:[phone] [place] Lumbago 4 Langford Kylie. [address] [place] [address], [address] [address], . tel: [phone] Family History Family Member Type Diagnosis Age At Onset No Information Payers Payer name Insurance type Covered democrat ID Shaw pierson(s) Rueda Ceci [id number] Social History Type Description Quantity [...]
--- OUTSIDE RECORDS SUMMARY | 2024-12-02 16:31 | XMS_ITS | Data Portability ---
Author Organization [facility] Address [address] [place] [address] Care Team Providers Care Business Solutions Architect Name Role Phone CONDE, WILLIE Primary Care Provider [phone] Assessment Encounter Date Assessment Date Assessment LastModified [...] skeleton + vertebral fracture assessment 2020 021 [facility], [address] [place] [address], [address], 11:59:46 Medication Orders None recorded. Patient TargetsNo [...] chris: Boo Fish Colle cted: 02/07 1549 DRAFTER REFRIGERATION Order ing Locat ion: [place] Patho logy [...] as clini og warra nted. Not Available [facility] (Lab) [address], [place], [address], 02/11/2021 17:11:36 02/08/20 21 02/07/2021 CT/GC (CAROLINE) , THINP REP VIAL chlamydia trachomatis, PCR Negati ve negati ve Not Available [facility] (Lab) [address], [place], [address], 02/11/2021 17:11:36 02/08/20 21 02/07/2021 CT/GC (CAROLINE) , THINP REP VIAL neisseria gonorrhoeae, PCR Negati ve negati ve Not Available [facility] (Lab) [address], [place], [address], 02/11/2021 17:11:36 02/08/20 21 02/07/2021 TRICH OMONA S VAGIN EMILY (RRNA ) trichomonas vaginalis ribosomal RNA (rrna) Negati ve negati ve Not Available [facility] (Lab) [address], [place], [address], 02/11/2021 17:11:37 03/21/20 21 03/21/2021 DEXA, axial skele ton + verte bral fract ure asses sment No observ ation record ed. TYSON Os ([facility] Scheduling [address] [place], [address], 04/08/2021 11:09:59 Result Notes None recorded. Procedures Surgical History Date Name Laterality Status Provider Name and Address Organization Details Recorded Time oophorectomy completed Whitley Peterson [place] - [place] [facility] 02/07/2021 11:22:58 procedure on back completed Whitley Peterson I [facility] 02/07/2021 11:23:17 partial repair of rotator cuff completed Whitley Peterson [facility] 02/07/2021 11:23:30 Imaging Results Imaging Date Name Status LastModified by Organiz ation Details LastModified Time 03/21/2021 DEXA, axial skeleton + vertebral fracture assessment completed [facility] ([facility]) Scheduling [address] [place], [address], 04/08/2021 11:09:59 Procedure Notes None recorded. Medical Equipment None Reported. Allergies Allergen ID Allergen Name Allergen Category Reaction Reaction Severity Criticality Documentation Date Start Date Code Code System Note Provider Name and Address Organization Details Recorded Time 43052 codeine medicatio n Not available Not available Not available 02/07/2021 2670 RxNorm Whitley Peterson null, [facility] 11:12:42 Medications Name Sig Start Date [...] Updated DateTime 02/07/2021 154.94 cm 22.1 kg/m2 44008.31 g Whitley Peterson [facility] 02/07/2021 11:12:25 Date Recorded Systolic blood pressure Diastolic blood pressure Provider Name and Address Organization Details Last Updated DateTime 02/07/2021 136 mm[Hg] 80 mm[Hg] Yina Soliz, [facility]- [address], [place], [address], [place] - [facility] 02/07/2021 11:39:09 Social History Question Answer Notes LastModified by Organizat ion Details LastModified Time Tobacco Smoking Status Never Smoker Whitley [facility] 02/07/2021 11:22:14 What Is Your Level [...] Anxious, Or Unable To Sleep At Night)? [id number] Information not available 02/07/2021 Do You Use [...] SNOMED-CT Code Diagnosis ICD10 Code Diagnosis Note [id number] Yina Soliz , [facility] [address] [address] 02/07/2021 10:21:43 02/07/2021 11:49:20 Gynecologic examination [id number] Z01.419 Take Calcium with Vitamin D 12-1500mg daily. Do monthly self breast exams. It is advised to get annual flu shot in the fall and she could obtain at [facility] or [facility] care clinic. 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 02/07/2021 11:46:06 OBGyn Episode Ob Episode Information Episode Created Date Number of Fetuses Patient Bloodtype Patient rh Status Prepregnancy Weight lbs Domestic Partner Domestic Partner Phone Father Name Button Riveter Status 02/08/20 21 1 CLOSED Fetus Data First Name Last Name Admitted to NICU Weight (g) Sex Living Outcome Pediatric Complications Fetus ID Race Codes Race Delivery Type 3288.54 2 M Full Term [address]7411 Vaginal Delivery Jude Calculation Initial Jude Date [...] Domestic Partner Domestic Partner Phone Father Name Button Riveter Status 02/08/20 21 1 CLOSED Fetus Data First Name Last Name Admitted to NICU Weight (g) Sex Living Outcome Pediatric Complications Fetus ID Race Codes Race Delivery Type 3713.55 7704 F Full Term 33206 Vaginal Delivery Jude Calculation Initial Jude Date [...] Domestic Partner Domestic Partner Phone Father Name Button Riveter Status 02/08/20 21 1 CLOSED Fetus Data First Name Last Name Admitted to NICU Weight (g) Sex Living Outcome Pediatric Complications Fetus ID Race Codes Race Delivery Type 3175.14 4 F Full Term [address]5738 Vaginal Delivery Jude Calculation Initial Jude Date [...]
--- OUTSIDE RECORDS SUMMARY | 2024-12-02 16:31 | XMS_ITS | CONTINUITY OF CARE DOCUMENT ---
Author Name shai shai Address Unknown Organization [facility] Address [address] [place] [address] Phone [phone] Care Team Providers Care Hazardous Substances Scientist Name Role Phone Mika FERNANDO, Tanya Unavailable STEFAN FERNANDO, JUDITH Woody Unavailable CELI FERNANDO, MOODY Unavailable INSURANCE PROVIDERS Payer name Policy type / Coverage type [place] red constitution party ID BRUNA MONSON Workers' compensation health [facility] [id number]
--- OUTSIDE RECORDS SUMMARY | 2024-12-02 16:31 | XMS_ITS | Clinical Summary ---
Author Organization [facility] Address [address], [address] [address] Phone Care Team Providers Care Director Of Guidance In Public Schools Name Role Phone Chetna Garcia APRN, CNP Primary Care Provider [phone] Allergies No known active allergies Medications ursodiol [...] of 3 - 19+ 3-dose series) 1986 Cologuard 2017 Immunochemical Fecal Occult Blood 2017 Zoster Immunization (2 of 3) 04/11/2017 2017 Pneumococcal Immunization (50+ years) (2 of 2 - PCV) 09/29/2019 09/28/2018 Mammogram 03/24/2024 03/24/2023, 03/21/2021 Influenza Immunization (#1) 2024 1007/2019, 04/20/2019, 05/05/2018, Additional history exists SARS-COV-2 Immunization ( - 2023- season) 2024 02/01/2021, 12/28/2020 Colonoscopy 02/10/2029 02/10/2019 [...] Comparison is made to exams dated: 03/21/2021 [facility], 08/11/2017 [facility], and 03/20/2014 [facility]. BREAST TISSUE:There are scattered fibroglandular densities [...] next screening exam. Electronically signed by: Kaylan servin/olivier:03/25/2023 11:04:31 Emg Technician(s): RT Vani(R)(M), [facility] letter sent: Normal Exam Reading location: [facility] BI-RADS: 2 Benign Procedure Note [...] Comparison is made to exams dated: 03/21/2021 [facility], 08/11/2017 [facility], and 03/20/2014 [facility]. BREAST TISSUE:There are scattered fibroglandular densities [...] next screening exam. Electronically signed by: Kaylan servin/olivier:03/25/2023 11:04:31 Emg Technician(s): RT Vani(R)(M), [facility] letter sent: Normal Exam Reading location: [facility] BI-RADS: 2 Benign Chetna Garcia APRN, CNP IMDian MAMMO ORDERABLES Amarilys l Result from Last 3 Months or Most Recently Relevant to Health Maintenance Insurance [place]ICAID [place] Care Teams Director Of Guidance In Public Schools Relationship Specialty Start Date End Date Chetna Garcia APRN, CNP [address] [place] [address] PCP - General Family Medicine 01/25/19
--- OUTSIDE RECORDS SUMMARY | 2024-12-02 16:31 | XMS_ITS | Data Portability ---
Author Organization [place] - [facility], Main Office Address [address] [place] [address] Care Team Providers Care Laborer Heading Name Role Phone EM BECERRIL Medical Microbiologist [phone] MOODY MINA Primary Care Provider MOODY MINA Referring Provider Assessment No assessment recorded. Plan of Treatment Reminders Order Date Submit Date Provider Last Modified By Organization Details Last Modified Time Details Appointments None recorded. Lab urinalysis, dipstick 2022 023 [id number] 9 s_[facility], [address] [address], [place], [address], 3 12:31:49 culture, urine + sensitivity 2022 023 [facility] [address] [place], [address], 3 11:08:49 Referral None recorded. Procedures None recorded. Surgeries None recorded. Imaging US, bladder 2022 023 [email or web address] s_gmg [facility], [address] [address], [address], 3 12:32:59 US, renal 2022 023 [email or web address] [facility], [address] [place] [address] [place], [address], 4 17:15:57 Medication Orders cephalexin 500 mg capsule 2022 023 [facility], [address] [place], [address], 3 12:32:48 Uribel 118 mg-10 mg-40.8 mg-36 mg capsule 2022 023 [facility], [address] [place], [address], 3 12:32:47 Patient TargetsNo targets recorded. Patient InstructionsNo instructions recorded. Reason for Referral None Reported. Results Created Date Observation Date Name Description Value Unit Range Abnormal Flag Note LastModifiedBy Organization Detail LastModifiedTime 03/09/2003/09/2023 urina lysis , dipst ick Leukocytes (reference range: negative daksha/ l) Trace Not Available [facility] [address] [facility] [address], [place], [address], 03/09/2023 11:01:52 03/09/20 23 03/09/2023 urina lysis , dipst ick Nitrite (reference rage: negative mg/dl) negati ve Not Available [facility] [address] [place], [place] [address], [place], [address], 03/09/2023 11:01:52 03/09/20 23 03/09/2023 urina lysis , dipst ick Urobilinogen (reference range: 0.2-1 mg/dl) 0.2 Not Available [facility] [address] [place], [place] [address] [facility] [address], [place], [address], 03/09/2023 11:01:52 03/09/20 23 03/09/2023 urina lysis , dipst ick Protein (reference range: negative mg/dl) Negati ve Not Available [facility] [address] [place], [place] [address] [facility] [address], [address], 03/09/2023 11:01:52 0803/09/2023 urina lysis , dipst ick pH (reference range: 5-7) 7.0 Not Available [facility] [place] [address], [place], [address], 03/09/2023 11:01:52 03/09/20 23 03/09/2023 urina lysis , dipst ick Blood (reference range: negative Abdifatah/ l) Negati ve Not Available [facility] [place] [address], [place], [address], 03/09/2023 11:01:52 03/09/2003/09/2023 urina lysis , dipst ick Specific [place] (reference range: 1.005-1.030) 1.015 Not Available s _gmg [facility] [address] [place] [address] [address], [place], [address], 03/09/2023 11:01:52 03/09/20 23 03/09/2023 urina lysis , dipst ick Ketone (reference range: negative mg/dl) Negati ve Not Available s[facility] [address] [place] [address] [address], [place], [address], 03/09/2023 11:01:52 03/09/20 23 03/09/2023 urina lysis , dipst ick Bilirubin (reference range: negative mg/dl) Negati ve Not Available s[facility] [address] [place] [address] [address], [place], [address], 03/09/2023 11:01:52 03/09/2003/09/2023 urina lysis , dipst ick Glucose (reference range: negative mg/dl) Negati ve Not Available s[facility] [address] [place] [address] [address], [place], [address], 03/09/2023 11:01:52 03/09/20 23 03/09/2023 urina lysis , dipst ick Appearance Clear Not Available [facility] [address], [place], [address], 03/09/2023 11:01:52 03/09/20 23 03/09/2023 urina lysis , dipst ick Color Yellow Not Available [facility] [place] [address], [place], [address], 03/09/2023 11:01:52 03/09/20 23 03/09/2023 US, bladd er No observ ation record ed. [email or web address] [facility] [place] [address] [facility] [place], [address], 03/09/2023 16:09:48 03/16/20 23 03/16/2023 US, bladd er No observ ation record ed. [facility] [address] [address], [place], [address], 03/17/2023 15:23:16 Result Notes None recorded. Problems Name Problem SNOMED Code Status Onset Date Resolution Date Notes Provider Name and Address Organization Details Recorded Time Pain of joint of wrist 174587852 Active Not Available [facility] 3 23:27:03 Closed fracture of lateral malleolus 43626159 Active Not Available [facility] 3 23:27:03 Fracture of lower leg 746414407 Active Not Available [facility] 3 23:27:03 Recurrent urinary tract infection 692966720 Active 023 Not Available [facility] 3 23:27:03 Problem Notes None recorded. Procedures Surgical History Date Name Laterality Status Provider Name and Address Organization Details Recorded Time Rotator cuff surgery completed WAYNE Abdul - [place] [employer] [facility] 03/09/2023 11:58:14 oophorectomy completed WAYNE Abdul - [facility] [place] [employer] [facility] 03/09/2023 12:00:01 Tubal Ligation completed Felicita Sofia MA [facility] [employer] [facility] 03/09/2023 12:00:21 Imaging Results Imaging Date Name Status LastModified by Organiz ation Details LastModified Time 03/09/2023 US, bladder completed [email or web address] [facility] [place] [address] [facility] [address], [place], [address], 03/09/2023 16:09:48 03/16/2023 US, bladder completed [email or web address] [facility] [place] [address] [facility] [address], [place], [address], 03/17/2023 15:23:16 Procedure Notes None recorded. Medical Equipment None Reported. Allergies Allergen ID Allergen Name Allergen Category Reaction Reaction Severity Criticality Documentation Date Start Date Code Code System Note Provider Name and Address Organization Details Recorded Time 99340 codeine medicatio n Not available Not available Not available 03/09/2023 2670 RxNorm Felicita Sofia MA null, [facility] [employer] [facility] 11:51:56 Medications Name Sig Start Date [...] 2 TS PO DAILY FOR 3 DAYS 09/08 /2022 completed Not Available Not Available Not Available [...] Details Last Updated DateTime 03/09/2023 154.94 cm WAYNE Abdul [facility] [employer] 03/09/2023 11:51:49 Date Recorded Oxygen saturation Oxygen saturation in Arterial blood by Pulse oximetry Body mass index (BMI) Body weight Body temperature Heart rate Systolic blood pressure Diastolic blood pressure Provider Name and Address Organization Details Last Updated DateTime 3 98 % 98 % 24.2 kg/m2 24302.8 2 g 98.2 [degF] 89 /min 136 mm[Hg] 82 mm[Hg] [facility]Í [facility] 3 12:05:57 Social History Question Answer Notes LastModified by Organizat ion Details LastModified Time Tobacco Smoking Status Never Smoker Felicita Sofia MA [facility], [place] - [place] [employer] [facility] 03/09/2023 12:02:42 What Is Your Level Of [...] N BACK INJECTIONS N INFECTIOUS DISEASE N PROSTATE N HEART ARRHYTHMIA N INSOMNIA N ESRD N HIGH CHOLESTEROL / HYPERLIPIDEMIA N HYPERTHYROIDISM N UTI N PVD N EDEMA N HYPOTHYROIDISM N BACK / NECK PROBLEMS N HAVE YOU BEEN HOSPITALIZED OR SEEN IN E ER IN THE PAST YEAR ? N DIALYSIS N POLYCYSTIC OVARIES N OSTEOPOROSIS N ARTHRITIS N NO SIGNIFICANT PAST MEDICAL HISTORY N DIABETES, TYPE Y VON WILLIBRAND'S DISEASE N PARKINSON N incontinence N POST LAMINECTOMY SYNDROME N HEPATITIS / LIVER DISEASE N GOUT N SLEEP DISORDER N ALZHEIMER'S DISEASE N HERPES N SEIZURES/EPILEPSY N HEADACHES/MIGRAINES N PACEMAKER N HEART MURMUR N DIZZINESS N KIDNEY DISEASE N HEART DISEASE/HEART PROBLEMS N MULTIPLE SCLEROSIS N NEUROPSYCHOLOGICAL N CANCER: SPECIFY N ANESTHESIA COMPLICATIONS N ATRIAL FIBRILLATION N AUTOIMMUNE DISEASE N Gynecological HistoryNo gynecological history recorded. Obstetrics History GPAL:G 0 P 0 0 0 0 Past Encounters Encounter ID Performer Location Encounter Start Date Encounter Closed Date Diagnosis/Indication Diagnosis SNOMED-CT Code Diagnosis ICD10 Code Diagnosis Note [id number] Juan Hernandez MD [facility] [address] [place] [address] 03/09/2023 11:38:27 03/09/2023 12:32:58 Recurrent urinary tract infection 085507343 N39.0 UA today with tr gabriella. Will [...] Devries Member ID Guarantor Name 03/09/2023 1 [facility] (MEDICAID HMO) [id number] Dominique Simpson [id number] Dominique Simpson Notes Date Note Type Note Provider Name and Address Organization Details Recorded Time 03/09/2023 text/html :03/09/2023atifiliberto nt presents to the office as a [...] Coli/Klebsiella1/2 023- coag neg staph Kurt Callaway, ACCOUNTING REPRESENTATIVE [address] [facility] [address], [place], [address], [place] [facility] 03/09/2023 12:50:55 OBGyn Episode No OBEpisode recorded.
--- OUTSIDE RECORDS SUMMARY | 2024-12-02 17:12 | XMS_ITS | Clinical Summary ---
Author Organization [facility] Address [address], [address] [address] Phone Care Team Providers Care Hvac Sheet Metal Installer Helper Name Role Phone Chetna Garcia APRN, CNP Primary Care Provider [phone] Allergies No known active allergies Medications ursodiol [...] Comparison is made to exams dated: 03/21/2021 [facility], 08/11/2017 [facility], and 03/20/2014 [facility]. BREAST TISSUE:There are scattered fibroglandular densities in [...] exam. Electronically signed by: Kaylan servin/olivier:03/25/2023 11:04:31 Sheet Finisher(s): RT Vani(R)(M), [facility] letter sent: Normal Exam Reading location: [facility] BI-RADS: 2 Benign Procedure Note Kaylan Zimmerman [...] Comparison is made to exams dated: 03/21/2021 [facility], 08/11/2017 [facility], and 03/20/2014 [facility]. BREAST TISSUE:There are scattered fibroglandular densities in [...] exam. Electronically signed by: Kaylan servin/olivier:03/25/2023 11:04:31 Sheet Finisher(s): RT Vani(R)(M), [facility] letter sent: Normal Exam Reading location: [facility] BI-RADS: 2 Benign Chetna Garcia APRN, CNP IMDian MAMMO ORDERABLES Amarilys l Result from Last 3 Months or Most Recently Relevant to Health Maintenance Insurance MEDICAID [place] Care Teams Hvac Sheet Metal Installer Helper Relationship Specialty Start Date End Date Chetna Garcia APRN, CNP [address] [place] [address] PCP - General Family Medicine 01/25/19
--- OUTSIDE RECORDS SUMMARY | 2024-12-02 17:12 | XMS_ITS | Continuity of Care Document ---
Author Name [facility] Organization [facility] Care Team Providers Care Crm Marketing Executive Name Role Phone [facility] Unavailable Unavailable Encounters [...] Date DC Date Status Disposition Source [facility] Outpatient Encounter [id number] JUSTINE DHALIWAL 01/19 [facility] SUJATHA Garcia
--- OUTSIDE RECORDS SUMMARY | 2024-12-02 17:12 | XMS_ITS | Clinical Summary ---
Author Organization [facility] [address] [facility] lto Address [address] [place] [address] Care Team Providers Care Movement Therapist Name Role Phone Chetna Garcia NP Primary Care Provider [phone] Allergies Active Allergy Reactions Criticality Noted Date Comments Codeine Nausea And Vomiting 06/04/2021 Medications insulin syringe-needle U-100 1 mL 25 gauge x 5/8 syringe lantus insulin twice daily 100 Syringe 6 10/31/19 17 Active TRUE METRIX GLUCOSE TEST STRIP strip 6 03/12/20 17 Active FLUVIRIN 7834-7147, PF, 45 mcg (15 mcg x 3)/0.5 [...] neuropathy, with long-term current use of insulin ([facility]),Diabetic polyneuropathy associated with type 2 diabetes mellitus (HCC) Inject 0.24 mL (24 Units total) under the skin 2 (two) times a day. 3 pen 3 11/13/19 18 Active gabapentin (NEURONTIN) 300 mg capsuleIndications :Type 2 diabetes mellitus with diabetic neuropathy, with long-term current use of insulin ([facility]),Diabetic polyneuropathy associated with type 2 diabetes mellitus (HCC),Type 2 diabetes mellitus with diabetic polyneuropathy, with long-term current use of insulin ([facility]) TAKE 1 CAPSULE BY MOUTH [...] Plan (01/14/2023 3:39 PM CDT): Hearing test [facility] in [place] Otitis media 08/11/2017 Referred otalgia of left ear 08/11/2017 Assessment & Plan (01/14/2023 3:39 PM CDT): Hearing test [facility] in [place] Pain in wrist 09/09/2016 Overview (10/31/2016): Left [...] on file Legal Sex Female 3:15 PM FILM RECORDIST Gender Identity Not on file Sexual Orientation [...] Read Routine (OP Routine) 08/11/2017 3:43 PM FILM RECORDIST Screening breast examination PAP SMEAR WITH HPV [...] Mammogram Bilateral W Evgeny (08/11/2017 3:43 PM FILM RECORDIST) Anatomical Region Laterality Modality Breast Bilateral Mammography Addenda Addendum by Jose Alejandro Garsia MD on 11/06/2017 7:18 AM CDT ADDENDUM #1 Comparison is now made to a prior study from 03/20/2014 from [facility]. No interval suspicious mass or [...] Alejandro Garsia M.D. Impressions 08/11/2017 3:58 PM FILM RECORDIST 1. NO DEFINITIVE MAMMOGRAPHIC EVIDENCE OF MALIGNANCY. IF PRIOR STUDIES BECOME AVAILABLE AN ADDENDUM WILL BE ISSUED OTHERWISE ANNUAL FOLLOW-UP RECOMMENDED. BI-RADS 2 Electronically signed by: Jose Alejandro Garsia M.D. Narrative 08/11/2017 3:58 PM FILM RECORDIST SCREENING MAMMOGRAM BILATERAL W EVGENY HISTORY: Encounter [...] by: Jose Alejandro Garsia M.D. Katie Duarte NEPHROLOGY NURSE IMG MAMMO PROCEDURES Edit ed Result - Final * PAP SMEAR WITH HPV (06/26/2017) Pap smear Unknown Comment:[place] 06/2017 Result [facility] Provider HEALTH MAINTENANCE Final Result * DIABETES FOOT EXAM (03/02/2017) Diabetic Foot Exam Normal SCRIBED DM FOOT SITES SENSED 6 Comment:6:6 Result [facility] Provider HEALTH MAINTENANCE Final Result * LIPID PANEL (09/10/2016) Lipid Panel Abnormal Comment:VG=287 HDL=37 QN=105 GIW=355 Result [facility] Provider HEALTH MAINTENANCE Final Result * DIABETES EYE EXAM (02/25/2016) Diabetic Eye Exam Normal Result [facility] Provider HEALTH MAINTENANCE Final Result from Last 3 Months or Most Recently Relevant to Health Maintenance [place] [address] Care Teams Movement Therapist Relationship Specialty Start Date End Date Chetna Garcia NP [address] [place] [address] PCP - General Nurse Practitioner 10/16/22
--- OUTSIDE RECORDS SUMMARY | 2024-12-02 17:12 | XMS_ITS | Continuity of Care Document ---
Author Organization [facility] Address [address] [facility] [address] [place] [address] Phone Care Team Providers Care Telephone Answerer Name Role Phone Marcum OD, Arun Unavailable Unavailable Procedures Procedure Date Eye Exam & Treatment Refraction Eye Exam & Treatment Advance Directives Directive Yes / No Effective Date File Name No Information Encounters Encounter Description Practice Location Reason(s) For Visit Diagnoses Date Provider Providers Copied on Encounter formerly [facility], [address] [place] [address] [address], [place], [place], [address], tel:[phone] SEC [facility] No Information 9-201 0 Marcum OD [place]. [address] [facility] , [address], [place], [address], [place]. tel:[phone] formerly [facility], [address] [place] [address] [address], [place], [place], [address], tel:[phone] SEC [facility] No Information 4-200 7 Alfredo Riojas. [address] [facility] [place] [facility], [address], [place], [place], [address], [place]. tel:[phone] Family History Family Member Type Diagnosis Age At Onset No Information Payers Payer name Insurance type Covered green party ID Authoriza tion(s) Medicaid [facility] [id number] Social History Type Description Quantity Date Captured [...]
--- OUTSIDE RECORDS SUMMARY | 2024-12-02 17:12 | XMS_ITS | Referral Summary ---
Author Organization [facility] [address] [facility] lto Address [address] [place] [address] Care Team Providers Care Paving Foreman Name Role Phone Chetna Garcia NP Primary Care Provider Allergies Active Allergy Reactions Criticality Noted Date Comments Codeine Nausea And Vomiting 06/04/2021 Medications insulin syringe-needle U-100 1 mL 25 gauge x 5/8 syringe lantus insulin twice daily 100 Syringe 6 10/31/19 17 Active TRUE METRIX GLUCOSE TEST STRIP strip 6 03/12/20 17 Active FLUVIRIN 0793-8666, PF, 45 mcg (15 mcg x 3)/0.5 [...] long-term current use of insulin ([facility]),Diabetic polyneuropathy associated with type 2 diabetes mellitus (HCC) Inject 0.24 mL (24 Units total) under the skin 2 (two) times a day. 3 pen 3 11/13/19 18 Active gabapentin (NEURONTIN) 300 mg capsuleIndications :Type 2 diabetes mellitus with diabetic neuropathy, with long-term current use of insulin ([facility]),Diabetic polyneuropathy associated with type 2 diabetes mellitus (HCC),Type 2 diabetes mellitus with diabetic polyneuropathy, with long-term current use of insulin ([facility]) TAKE 1 CAPSULE BY MOUTH THREE [...] Plan (01/14/2023 3:39 PM CDT): Hearing test [facility] in [place] Otitis media 08/11/2017 Referred otalgia of left ear 08/11/2017 Assessment & Plan (01/14/2023 3:39 PM CDT): Hearing test [facility] in [place] Pain in wrist 09/09/2016 Overview (10/31/2016): Left [...] on file Legal Sex Female 3:15 PM CHARTER AND TOUR BUS DRIVER Gender Identity Not on file Sexual Orientation [...] Read Routine (OP Routine) 08/11/2017 3:43 PM CHARTER AND TOUR BUS DRIVER Screening breast examination PAP SMEAR WITH HPV [...] Mammogram Bilateral W Evgeny (08/11/2017 3:43 PM CHARTER AND TOUR BUS DRIVER) Anatomical Region Laterality Modality Breast Bilateral Mammography Addenda Addendum by Jose Alejandro Garsia MD on 11/06/2017 7:18 AM CDT ADDENDUM #1 Comparison is now made to a prior study from 03/20/2014 from [facility]. No interval suspicious mass or [...] Alejandro Garsia M.D. Impressions 08/11/2017 3:58 PM CHARTER AND TOUR BUS DRIVER 1. NO DEFINITIVE MAMMOGRAPHIC EVIDENCE OF MALIGNANCY. IF PRIOR STUDIES BECOME AVAILABLE AN ADDENDUM WILL BE ISSUED OTHERWISE ANNUAL FOLLOW-UP RECOMMENDED. BI-RADS 2 Electronically signed by: Jose Alejandro Garsia M.D. Narrative 08/11/2017 3:58 PM CHARTER AND TOUR BUS DRIVER SCREENING MAMMOGRAM BILATERAL W EVGENY HISTORY: Encounter [...] (06/26/2017) Pap smear Unknown Comment:[place] 06/2017 [facility] Provider HEALTH MAINTENANCE Final Result * DIABETES FOOT EXAM (03/02/2017) Diabetic Foot Exam Normal SCRIBED DM FOOT SITES SENSED 6 Comment:6:6 Result [facility] Provider HEALTH MAINTENANCE Final Result * LIPID PANEL (09/10/2016) Lipid Panel Abnormal Comment:QR=104 HDL=37 EJ=071 FBH=285 [facility] Provider HEALTH MAINTENANCE Final Result * DIABETES EYE EXAM (02/25/2016) Diabetic Eye Exam Normal [facility] Provider HEALTH MAINTENANCE Final Result from Last 3 Months or Most Recently Relevant to Health Maintenance Insurance [facility] Care Teams Paving Foreman Relationship Specialty Start Date End Date Garcia, Chetna Estrada NP [address] [place] [address] PCP - General Nurse Practitioner 10/16/22
--- OUTSIDE RECORDS SUMMARY | 2024-12-02 17:12 | XMS_ITS | Clinical Summary ---
Author Organization [facility] Address [address] [facility] [place] [address] Care Team Providers Care Studio Set Up Worker Name Role Phone Chetna Garcia APRN-DETASSELING CREW SUPERVISOR Primary Care Provider [phone] Source Comments [facility],non-owned Affiliates and Associated Physician Practices is amultiple site organization consisting of ambulatory clinics and hospital sitesin [place], [place], [place] and [place]. This disclosure is being madepursuant to the Care Everywhere program and may not contain all information available regarding this patient. Last updated 18.[facility] Allergies Active Allergy Reactions Criticality Noted Date [...] Comments Blood Pressure 131/89 07/18/2021 1:59 PM COMPLAINT INSPECTOR Pulse 102 07/18/2021 1:59 PM COMPLAINT INSPECTOR Temperature 36.7 C (98 F) 07/18/2021 1:59 PM COMPLAINT INSPECTOR Respiratory Rate 20 07/18/2021 1:59 PM COMPLAINT INSPECTOR Oxygen Saturation 99% 07/03/2021 4:59 PM COMPLAINT INSPECTOR Inhaled Oxygen Concentration - - Weight 51.3 kg (113 lb) 07/18/2021 1:59 PM COMPLAINT INSPECTOR Height 154.9 cm (5' 1 ) 07/18/2021 1:59 PM COMPLAINT INSPECTOR Body Mass Index 21.35 07/18/2021 1:59 PM COMPLAINT INSPECTOR Plan of Treatment Health Maintenance Due Date [...] patient's age to complete this topic Insurance [facility] Care Teams Studio Set Up Worker Relationship Specialty Start Date End Date Chetna Garcia APRN-[address] [place] [address] PCP - General Nurse Practitioner Family 07/03/21
--- OUTSIDE RECORDS SUMMARY | 2024-12-02 17:12 | XMS_ITS | CONTINUITY OF CARE DOCUMENT ---
Author Name shai shai Address Unknown Organization [facility] Address [address] [facility] [address] [place] [address] Phone [phone] Care Team Providers Care Induction Coordination Engineer Name Role Phone Mika FERNANDO, Tanya Unavailable [phone] STEFAN FERNANDO, JUDITH Woody Unavailable CELI FERNANDO, MOODY Unavailable INSURANCE PROVIDERS Payer name Policy type / Coverage type [place] red constitution party ID BRUNA MONSON Workers' compensation health [facility] [id number]
--- OUTSIDE RECORDS SUMMARY | 2024-12-02 17:12 | XMS_ITS | Continuity of Care Document ---
Author Organization [facility] Address [address] [place] [address] [address] [place] [address] Phone Care Team Providers Care Work Order Sorting Clerk Name Role Phone Primitivo CATARINOKylie Thompson Unavailable [...] Diagnoses Date Provider Providers Copied on Encounter [facility] [address] [facility] [address], [place], [id number], [phone] Thompson No Information - 4 Langford Kylie. [address] [place] [address], [address], [place], [facility], . tel: [phone] [facility] [address], [place], [id number], tel:[phone] Thompson No Information 2-201 4 Langford Kylie. [address] [facility], [address], [place], [place], [facility], [place]. tel: [phone] [facility] [address], [place], [place], [id number], tel:[phone] Thompson No Information 0 9-201 4 Langford Kylie. [address] [facility], [address], [place], [place], [facility], . tel: [phone] [facility] [address], [place], [place], [id number], [place] tel:[phone] Thompson No Information May-0 7-201 4 Langford Kylie. [address] [place] [address], [address], [place], [address], [place]. tel: [phone] [facility] [address], [place], [place], [address], [place] tel:[phone] Thompson No Information Apr-3 0-201 4 Langford Kylie. [address] [place] [address], [address], [place], [address], [place]. tel: [phone] [address], [place], [place], [address], [place] tel:[phone] Thompson No Information Apr-2 8-201 4 Langford Kylie. [address] [place] [address], [address], [place], [address], [place]. tel: [phone] [facility] [address], [place], [place], [address], [place] tel:[phone] Thompson No Information Apr-2 4-201 4 Langford Kylie. [address] [place] [address], [address], [place], [address], [place]. tel: [phone] [address], [place], [place], [address], [place] tel:[phone] Thompson No Information Apr-2 3-201 4 Langford Kylie. [address] [place] [address], [address], [place], [address], [place]. tel: [phone] [facility] [address], [place], [place], [address], [place] tel:[phone] Thompson No Information Apr-2 1-201 4 Langford Kylie. [address] [place] [address], [address], [place], [address], [place]. tel: [place] [phone] [facility], [place], [place], [address], tel:[phone] Thompson No Information 8 4 Langford Kylie. [address] [place] [address], [address], [place], [facility], . tel: [phone] [facility] [address] [place], [place] [address], [place], [place], [address], tel:[phone] Thompson No Information 6 4 Langford Kylie. [address] [place] [address], [address], [place], [facility], . tel: [phone] [address], [place], [place], [address], tel:[phone] Thompson No Information 4 Langford Yklie. [address] [place] [address], [facility] [address], [place], [facility], . tel: [phone] [address], [place], [place], [address], tel:[phone] Thompson Lumbago 4 Langford Kylie. [address] [place] [address], [address] [address], . tel: [phone] Family History Family Member Type Diagnosis Age At Onset No Information Payers Payer name Insurance type Covered libertarian ID Shaw pierson(s) Rueda Ceci [id number] Social History Type Description Quantity [...]
--- OUTSIDE RECORDS SUMMARY | 2024-12-02 17:12 | XMS_ITS | Clinical Summary ---
Author Organization [facility] Address [address] [place] [address] Care Team Providers Care Dairy Husbandry Teacher Name Role Phone La Chiang MD Primary Care Provider [phone] Social History Tobacco Use Types Packs/Day Years [...] age to complete this topic Care Teams Dairy Husbandry Teacher Relationship Specialty Start Date End Date La Chiang MD [address] [address] PCP - General 5/9/12
[2024-12-02 18:52] VITALS: BP 152/87; PULSE 82; RESP 18; TEMP 36.5; O2SAT 97
[2024-12-02 19:15] VITALS: BP 135/92; PULSE 96; RESP 16; O2SAT 98
== END 2024-12-02 19:15 | disposition home or self-care (01) ==
PROVIDERS: Emergency Provider Emergency Medicine; PCP Nurse Practitioner Family
DX: S46.211A Strain of muscle, fascia and tendon of other parts of biceps, right arm, initial encounter (principal); S39.012A Strain of muscle, fascia and tendon of lower back, initial encounter; E11.9 Type 2 diabetes mellitus without complications; E78.5 Hyperlipidemia, unspecified; I10 Essential (primary) hypertension; Z79.899 Other long term (current) drug therapy; X50.0XXA Overexertion from strenuous movement or load, initial encounter; Y99.0 Civilian activity done for income or pay
CPT/HCPCS: 72100; 72192; 72220; 73060; 99284

== ENCOUNTER 2024-12-12 13:54 | Emergency (ER) | payer OTHER, SELFPAY ==
[2024-12-12 13:55] VITALS: BP 133/91; PULSE 89; RESP 16; TEMP 36.8; O2SAT 98
--- OUTSIDE RECORDS SUMMARY | 2024-12-12 13:57 | XMS_ITS | Clinical Summary ---
Author Organization [facility] Address [address] [place] [address] Care Team Providers Care Tongue Carrier Name Role Phone La Chiang MD Primary Care Provider [phone] Social History Tobacco Use Types Packs/Day Years [...] age to complete this topic Care Teams Tongue Carrier Relationship Specialty Start Date End Date La Chiang MD [address] [address] PCP - General 5/9/12
--- OUTSIDE RECORDS SUMMARY | 2024-12-12 13:57 | XMS_ITS | Data Portability ---
Author Organization [facility] Address [address] [place] [address] Care Team Providers Care Line Inspector Name Role Phone CONDE, WILLIE Primary Care Provider [phone] Assessment Encounter Date Assessment Date Assessment LastModified [...] skeleton + vertebral fracture assessment 2020 021 [facility], [address] [place] [address], [address], 11:59:46 Medication Orders None recorded. 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 Not Available [facility] (Lab) [address], [place], [address], 02/11/2021 17:11:36 02/08/20 21 02/07/2021 CT/GC (CAROLINE) , THINP REP VIAL chlamydia trachomatis, PCR Negati ve negati ve Not Available [facility] (Lab) [address], [place], [address], 02/11/2021 17:11:36 02/08/20 21 02/07/2021 CT/GC (CAROLINE) , THINP REP VIAL neisseria gonorrhoeae, PCR Negati ve negati ve Not Available [facility] (Lab) [address], [place], [address], 02/11/2021 17:11:36 02/08/20 21 02/07/2021 TRICH OMONA S VAGIN EMILY (RRNA ) trichomonas vaginalis ribosomal RNA (rrna) Negati ve negati ve Not Available [facility] (Lab) [address], [place], [address], 02/11/2021 17:11:37 03/21/20 21 03/21/2021 DEXA, axial skele ton + verte bral fract ure asses sment No observ ation record ed. TYSON Os ([facility] Scheduling [address] [place], [address], 04/08/2021 11:09:59 Result Notes None recorded. Procedures Surgical History Date Name Laterality Status Provider Name and Address Organization Details Recorded Time oophorectomy completed Whitley [place] [facility] 02/07/2021 11:22:58 procedure on back completed Whitley Peterson I [facility] 02/07/2021 11:23:17 partial repair of rotator cuff completed Whitley Peterson [facility] 02/07/2021 11:23:30 Imaging Results Imaging Date Name Status LastModified by Organiz ation Details LastModified Time 03/21/2021 DEXA, axial skeleton + vertebral fracture assessment completed [facility] ([facility]) Scheduling [address] [place], [address], 04/08/2021 11:09:59 Procedure Notes None recorded. Medical Equipment None Reported. Allergies Allergen ID Allergen Name Allergen Category Reaction Reaction Severity Criticality Documentation Date Start Date Code Code System Note Provider Name and Address Organization Details Recorded Time 74842 codeine medicatio n Not available Not available Not available 02/07/2021 2670 RxNorm Whitley Peterson null, [facility] 11:12:42 Medications Name Sig Start Date [...] Updated DateTime 02/07/2021 154.94 cm 22.1 kg/m2 42910.31 g Whitley Peterson [facility] 02/07/2021 11:12:25 Date Recorded Systolic blood pressure Diastolic blood pressure Provider Name and Address Organization Details Last Updated DateTime 02/07/2021 136 mm[Hg] 80 mm[Hg] Yina Soliz, [facility]- [address], [place], [address], [place] - [facility] 02/07/2021 11:39:09 Social History Question Answer Notes LastModified by [facility] Details LastModified Time Tobacco Smoking Status Never Smoker Whitley [facility] 02/07/2021 11:22:14 Are You Blind Or Do You Have [...] Yes Information not available 02/07/2021 Do You Use Sunscreen Routinely? Yes Information not available 02/07/2021 Sex: Unknown Functional Status Question Answer Note LastModified by [facility] Details LastModified Time Do you use any illicit or recreational drugs? No Information not available 02/07/2021 What is your level of alcohol consumption? Occasional Information not available 02/07/2021 Are you able to walk? YESWOREST Information not available 02/07/2021 What is your exercise level? Moderate Information not available 02/07/2021 Mental Status Question Answer Note LastModified by Organization D etails LastModified Time Do you feel stressed (tense, restless, nervous, or anxious, or unable to sleep at night)? [id number] Information not available 02/07/2021 Family History Relationship Description Onset Age of [...] SNOMED-CT Code Diagnosis ICD10 Code Diagnosis Note 07662 Yina Soliz [facility] [address] [address] 02/07/2021 10:21:43 02/07/2021 11:49:20 Gynecologic examination 83995327 Z01.419 Take Calcium with Vitamin D 12-1500mg daily. Do monthly self breast exams. It is advised to get annual flu shot in the fall and she could obtain at [facility] or [facility] care clinic. 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 Postmenopa usal osteopenia [id number] M85.80 No menses since age 30yo d/t [...] Devries Member ID Guarantor Name 02/07/2021 1 [facility] (MEDICAID HMO) [id number] Dominique Simpson [id number] Dominique Simpson Notes Date Note Type Note Provider Name and Address Organization Details Recorded Time 02/07/2021 text/html Annual Regional Telecommunications Specialist Post-MenopausalRe ported bypatient.[place] odette Symptoms:no menopausal symptoms; [...] Yina Soliz, JOHN PAUL- [address], [place], [address], [facility] 02/07/2021 11:46:06 OBGyn Episode Ob Episode Information Episode Created Date Number of Fetuses Patient Bloodtype Patient rh Status Prepregnancy Weight lbs Domestic Partner Domestic Partner Phone Father Name Lens Matcher Status 02/08/20 21 1 CLOSED Fetus Data First Name Last Name Admitted to NICU Weight (g) Sex Living Outcome Pediatric Complications Fetus ID Race Codes Race Delivery Type 3288.54 2 M Full Term 49018 Vaginal Delivery Jude Calculation Initial Jude Date [...] Domestic Partner Domestic Partner Phone Father Name Lens Matcher Status 02/08/20 21 1 CLOSED Fetus Data First Name Last Name Admitted to NICU Weight (g) Sex Living Outcome Pediatric Complications Fetus ID Race Codes Race Delivery Type 3713.55 7704 F Full Term 83404 Vaginal Delivery Jude Calculation Initial Jude Date [...] Domestic Partner Domestic Partner Phone Father Name Lens Matcher Status 02/08/20 21 1 CLOSED Fetus Data First Name Last Name Admitted to NICU Weight (g) Sex Living Outcome Pediatric Complications Fetus ID Race Codes Race Delivery Type 3175.14 4 F Full Term 79199 Vaginal Delivery Jude Calculation Initial Jude Date [...]
--- OUTSIDE RECORDS SUMMARY | 2024-12-12 13:57 | XMS_ITS | Clinical Summary ---
Author Organization [facility] Address [address] [place] [address] Care Team Providers Care Industrial Cook Name Role Phone Chetna Garcia APRN-PICC NURSE Primary Care Provider [phone] Source Comments [facility],non-owned Affiliates and Associated Physician Practices is amultiple site organization consisting of ambulatory clinics and hospital sitesin [place], [place], [place] and [place]. This disclosure is being madepursuant to the Care Everywhere program and may not contain all information available regarding this patient. Last updated 18.[facility] Allergies Active Allergy Reactions Criticality Noted Date [...] Comments Blood Pressure 131/89 07/18/2021 1:59 PM BUSINESS SERVICES ASSISTANT Pulse 102 07/18/2021 1:59 PM BUSINESS SERVICES ASSISTANT Temperature 36.7 C (98 F) 07/18/2021 1:59 PM BUSINESS SERVICES ASSISTANT Respiratory Rate 20 07/18/2021 1:59 PM BUSINESS SERVICES ASSISTANT Oxygen Saturation 99% 07/03/2021 4:59 PM BUSINESS SERVICES ASSISTANT Inhaled Oxygen Concentration - - Weight 51.3 kg (113 lb) 07/18/2021 1:59 PM BUSINESS SERVICES ASSISTANT Height 154.9 cm (5' 1 ) 07/18/2021 1:59 PM BUSINESS SERVICES ASSISTANT Body Mass Index 21.35 07/18/2021 1:59 PM BUSINESS SERVICES ASSISTANT Plan of Treatment Health Maintenance Due Date [...] patient's age to complete this topic Insurance [facility] Care Teams Industrial Cook Relationship Specialty Start Date End Date Chetna Garcia APRN-[address] [place] [address] PCP - General Nurse Practitioner Family 07/03/21
--- OUTSIDE RECORDS SUMMARY | 2024-12-12 13:57 | XMS_ITS | Clinical Summary ---
Author Organization [facility] [address] [facility] lto Address [address] [place] [address] Care Team Providers Care Sole Trimmer Name Role Phone Chetna Garcia NP Primary Care Provider [phone] Allergies Active Allergy Reactions Criticality Noted Date Comments Codeine Nausea And Vomiting 06/04/2021 Medications insulin syringe-needle U-100 1 mL 25 gauge x 5/8 syringe lantus insulin twice daily 100 Syringe 6 10/31/19 17 Active TRUE METRIX GLUCOSE TEST STRIP strip 6 03/12/20 17 Active FLUVIRIN 2960-9381, PF, 45 mcg (15 mcg x 3)/0.5 [...] current use of insulin ([facility]),Diabetic polyneuropathy associated with type 2 diabetes mellitus (HCC) Inject 0.24 mL (24 Units total) under the skin 2 (two) times a day. 3 pen 3 11/13/19 18 Active gabapentin (NEURONTIN) 300 mg capsuleIndications :Type 2 diabetes mellitus with diabetic neuropathy, with long-term current use of insulin ([facility]),Diabetic polyneuropathy associated with type 2 diabetes mellitus (HCC),Type 2 diabetes mellitus with diabetic polyneuropathy, with long-term current use of insulin ([facility]) TAKE 1 CAPSULE BY MOUTH THREE [...] Plan (01/14/2023 3:39 PM CDT): Hearing test [facility] in [place] Otitis media 08/11/2017 Referred otalgia of left ear 08/11/2017 Assessment & Plan (01/14/2023 3:39 PM CDT): Hearing test [facility] in [place] Pain in wrist 09/09/2016 Overview (10/31/2016): Left [...] on file Legal Sex Female 3:15 PM RESTAURANT SHIFT LEADER Gender Identity Not on file Sexual Orientation [...] Read Routine (OP Routine) 08/11/2017 3:43 PM RESTAURANT SHIFT LEADER Screening breast examination PAP SMEAR WITH HPV [...] Mammogram Bilateral W Evgeny (08/11/2017 3:43 PM RESTAURANT SHIFT LEADER) Anatomical Region Laterality Modality Breast Bilateral Mammography Addenda Addendum by Jose Alejandro Garsia MD on 11/06/2017 7:18 AM CDT ADDENDUM #1 Comparison is now made to a prior study from 03/20/2014 from [facility]. No interval suspicious mass or calcification has [...] Alejandro Garsia M.D. Impressions 08/11/2017 3:58 PM RESTAURANT SHIFT LEADER 1. NO DEFINITIVE MAMMOGRAPHIC EVIDENCE OF MALIGNANCY. IF PRIOR STUDIES BECOME AVAILABLE AN ADDENDUM WILL BE ISSUED OTHERWISE ANNUAL FOLLOW-UP RECOMMENDED. BI-RADS 2 Electronically signed by: Jose Alejandro Garsia M.D. Narrative 08/11/2017 3:58 PM RESTAURANT SHIFT LEADER SCREENING MAMMOGRAM BILATERAL W EVGENY HISTORY: Encounter [...] by: Jose Alejandro Garsia M.D. Katie Duarte GLASSINE MACHINE TENDER IMG MAMMO PROCEDURES Edit ed Result - Final * PAP SMEAR WITH HPV (06/26/2017) Pap smear Unknown Comment:[place] 06/2017 Result [facility] Provider HEALTH MAINTENANCE Final Result * DIABETES FOOT EXAM (03/02/2017) Diabetic Foot Exam Normal SCRIBED DM FOOT SITES SENSED 6 Comment:6:6 Result [facility] Provider HEALTH MAINTENANCE Final Result * LIPID PANEL (09/10/2016) Lipid Panel Abnormal Comment:VY=309 HDL=37 SD=251 SHR=345 Result [facility] Provider HEALTH MAINTENANCE Final Result * DIABETES EYE EXAM (02/25/2016) Diabetic Eye Exam Normal Result [facility] Provider HEALTH MAINTENANCE Final Result from Last 3 Months or Most Recently Relevant to Health Maintenance Insurance [facility] [place] [address] [facility] Care Teams Sole Trimmer Relationship Specialty Start Date End Date Chetna Garcia NP [address] [place] [address] PCP - General Nurse Practitioner 10/16/22
--- OUTSIDE RECORDS SUMMARY | 2024-12-12 13:57 | XMS_ITS | Continuity of Care Document ---
Author Name [facility] Organization [facility] Care Team Providers Care Garnishment Specialist Name Role Phone [facility] Unavailable Unavailable Encounters [...] Date DC Date Status Disposition Source [facility] Outpatient Encounter [id number] JUSTINE DHALIWAL 01/19 [facility] Garcia
--- OUTSIDE RECORDS SUMMARY | 2024-12-12 13:57 | XMS_ITS | Referral Summary ---
Author Organization [facility] [address] [facility] lto Address [address] [place] [address] Care Team Providers Care Chestnut Tanner Name Role Phone Chetna Garcia NP Primary Care Provider Allergies Active Allergy Reactions Criticality Noted Date Comments Codeine Nausea And Vomiting 06/04/2021 Medications insulin syringe-needle U-100 1 mL 25 gauge x 5/8 syringe lantus insulin twice daily 100 Syringe 6 10/31/19 17 Active TRUE METRIX GLUCOSE TEST STRIP strip 6 03/12/20 17 Active FLUVIRIN 3976-7782, PF, 45 mcg (15 mcg x 3)/0.5 [...] neuropathy, with long-term current use of insulin ([facility]),Diabetic polyneuropathy associated with type 2 diabetes mellitus (HCC) Inject 0.24 mL (24 Units total) under the skin 2 (two) times a day. 3 pen 3 11/13/19 18 Active gabapentin (NEURONTIN) 300 mg capsuleIndications :Type 2 diabetes mellitus with diabetic neuropathy, with long-term current use of insulin ([facility]),Diabetic polyneuropathy associated with type 2 diabetes mellitus (HCC),Type 2 diabetes mellitus with diabetic polyneuropathy, with long-term current use of insulin ([facility]) TAKE 1 CAPSULE BY MOUTH THREE [...] Plan (01/14/2023 3:39 PM CDT): Hearing test [facility] [place] Otitis media 08/11/2017 Referred otalgia of left ear 08/11/2017 Assessment & Plan (01/14/2023 3:39 PM CDT): Hearing test [facility] [place] Pain in wrist 09/09/2016 Overview (10/31/2016): Left [...] on file Legal Sex Female 3:15 PM MANAGER INSTALLATION Gender Identity Not on file Sexual Orientation [...] Read Routine (OP Routine) 08/11/2017 3:43 PM MANAGER INSTALLATION Screening breast examination PAP SMEAR WITH HPV [...] Mammogram Bilateral W Evgeny (08/11/2017 3:43 PM MANAGER INSTALLATION) Anatomical Region Laterality Modality Breast Bilateral Mammography Addenda Addendum by Jose Alejandro Garsia MD on 11/06/2017 7:18 AM CDT ADDENDUM #1 Comparison is now made to a prior study from 03/20/2014 from [facility]. No interval suspicious mass or calcification [...] Alejandro Garsia M.D. Impressions 08/11/2017 3:58 PM MANAGER INSTALLATION 1. NO DEFINITIVE MAMMOGRAPHIC EVIDENCE OF MALIGNANCY. IF PRIOR STUDIES BECOME AVAILABLE AN ADDENDUM WILL BE ISSUED OTHERWISE ANNUAL FOLLOW-UP RECOMMENDED. BI-RADS 2 Electronically signed by: Jose Alejandro Garsia M.D. Narrative 08/11/2017 3:58 PM MANAGER INSTALLATION SCREENING MAMMOGRAM BILATERAL W EVGENY HISTORY: Encounter [...] (06/26/2017) Pap smear Unknown Comment:[place] 06/2017 [facility] Provider HEALTH MAINTENANCE Final Result * DIABETES FOOT EXAM (03/02/2017) Diabetic Foot Exam Normal SCRIBED DM FOOT SITES SENSED 6 Comment:6:6 Result [facility] Provider HEALTH MAINTENANCE Final Result * LIPID PANEL (09/10/2016) Lipid Panel Abnormal Comment:ZY=598 HDL=37 NR=787 QMO=479 [facility] Provider HEALTH MAINTENANCE Final Result * DIABETES EYE EXAM (02/25/2016) Diabetic Eye Exam Normal [facility] Provider HEALTH MAINTENANCE Final Result from Last 3 Months or Most Recently Relevant to Health Maintenance Insurance [facility] [place] [address] Care Teams Chestnut Tanner Relationship Specialty Start Date End Date Radha, Chetna Estrada NP [address] [place] [address] PCP - General Nurse Practitioner 10/16/22
--- OUTSIDE RECORDS SUMMARY | 2024-12-12 13:58 | XMS_ITS | Clinical Summary ---
Author Organization [facility] Address [address], [address] [address] Phone Care Team Providers Care Otolaryngology Nurse Name Role Phone Chetna Garcia APRN, CNP Primary Care Provider [phone] Allergies No known active allergies Medications ursodiol [...] Comparison is made to exams dated: 03/21/2021 [facility], 08/11/2017 [facility], and 03/20/2014 [facility]. BREAST TISSUE:There are scattered fibroglandular densities [...] exam. Electronically signed by: Kaylan servin/olivier:03/25/2023 11:04:31 Practice Support Specialist(s): RT Vani(R)(M), [facility] letter sent: Normal Exam Reading location: [facility] BI-RADS: 2 Benign Procedure Note Kaylan Zimmerman [...] Comparison is made to exams dated: 03/21/2021 [facility], 08/11/2017 [facility], and 03/20/2014 [facility]. BREAST TISSUE:There are scattered fibroglandular densities [...] exam. Electronically signed by: Kaylan servin/olivier:03/25/2023 11:04:31 Practice Support Specialist(s): RT Vani(R)(M), [facility] letter sent: Normal Exam Reading location: [facility] BI-RADS: 2 Benign Chetna Garcia APRN, CNP IMDian MAMMO ORDERABLES Amarilys l Result from Last 3 Months or Most Recently Relevant to Health Maintenance Insurance MEDICAID [place] Care Teams Otolaryngology Nurse Relationship Specialty Start Date End Date Chetna Garcia APRN, CNP [address] [place] [address] PCP - General Family Medicine 01/25/19
--- OUTSIDE RECORDS SUMMARY | 2024-12-12 13:58 | XMS_ITS | CONTINUITY OF CARE DOCUMENT ---
Author Name shai shai Address Unknown Organization [facility] Address [address] [place] [address] Phone [phone] Care Team Providers Care Operations Recruiter Name Role Phone Mika FERNANDO, Tanya Unavailable STEFAN FERNANDO, JUDITH Woody Unavailable CELI FERNANDO, MOODY Unavailable INSURANCE PROVIDERS Payer name Policy type / Coverage type [place] [employer] party ID BRUNA MONSON Workers' compensation [facility] [id number]
--- OUTSIDE RECORDS SUMMARY | 2024-12-12 13:58 | XMS_ITS | Data Portability ---
Author Organization [place] [facility] [employer], Main Office Address [address] [place] [address] Care Team Providers Care Tube Turner Name Role Phone EM BECERRIL High Voltage Electrician [phone] MOODY MINA Primary Care Provider MOODY MINA Referring Provider Assessment No assessment recorded. Plan of Treatment Reminders Order Date Submit Date Provider Last Modified By Organization Details Last Modified Time Details Appointments None recorded. Lab urinalysis, dipstick 2022 023 [email or web address] 9 s_[facility], [id number], [place], [address], 3 12:31:49 culture, urine + sensitivity 2022 023 [facility] ([facility]), [address] [place], [address], 3 11:08:49 Referral None recorded. Procedures None recorded. Surgeries None recorded. Imaging US, bladder 2022 023 [email or web address] er2 s_[facility], [id number], [place], [address], 3 12:32:59 US, renal 2022 023 [email or web address] [facility], [address] [place] [address] [place], [address], 4 17:15:57 Medication Orders cephalexin 500 mg capsule 2022 023 [facility] [place], [address], 3 12:32:48 Uribel 118 mg-10 mg-40.8 mg-36 mg capsule 2022 023 [facility] [place], [address], 3 12:32:47 Patient TargetsNo targets recorded. Patient InstructionsNo instructions recorded. Reason for Referral None Reported. Results Created Date Observation Date Name Description Value Unit Range Abnormal Flag Note LastModifiedBy Organization Detail LastModifiedTime 03/09/2003/09/2023 urina lysis , dipst ick Leukocytes (reference range: negative daksha/ l) Trace Not Available [facility] [address] [facility] [address], [place], [address], 03/09/2023 11:01:52 03/09/20 23 03/09/2023 urina lysis , dipst ick Nitrite (reference rage: negative mg/dl) negati ve Not Available [facility] [address] [place], [place] [address], [place], [address], 03/09/2023 11:01:52 03/09/20 23 03/09/2023 urina lysis , dipst ick Urobilinogen (reference range: 0.2-1 mg/dl) 0.2 Not Available [facility] [address] [place], [place] [address]e [facility] [address], [place], [address], 03/09/2023 11:01:52 03/09/20 23 03/09/2023 urina lysis , dipst ick Protein (reference range: negative mg/dl) Negati ve Not Available [facility] [address] [place], [place] [address] [facility] [address], [address], 03/09/2023 11:01:52 0803/09/2023 urina lysis , dipst ick pH (reference range: 5-7) 7.0 Not Available [facility] [address], [place], [address], 03/09/2023 11:01:52 03/09/20 23 03/09/2023 urina lysis , dipst ick Blood (reference range: negative Abdifatah/ l) Negati ve Not Available [facility] [address], [place], [address], 03/09/2023 11:01:52 03/09/2003/09/2023 urina lysis , dipst ick Specific Bliss (reference range: 1.005-1.030) 1.015 Not Available s _g[facility] [address] [place] [address] [address], [place], [address], 03/09/2023 11:01:52 03/09/20 23 03/09/2023 urina lysis , dipst ick Ketone (reference range: negative mg/dl) Negati ve Not Available [facility] [address] [place] [address] [address], [place], [address], 03/09/2023 11:01:52 03/09/20 23 03/09/2023 urina lysis , dipst ick Bilirubin (reference range: negative mg/dl) Negati ve Not Available [facility] [address] [place] [address] [address], [place], [address], 03/09/2023 11:01:52 03/09/2003/09/2023 urina lysis , dipst ick Glucose (reference range: negative mg/dl) Negati ve Not Available [facility] [address] [place] [address] [address], [place], [address], 03/09/2023 11:01:52 03/09/20 23 03/09/2023 urina lysis , dipst ick Appearance Clear Not Available [facility] [address], [place], [address], 03/09/2023 11:01:52 03/09/20 23 03/09/2023 urina lysis , dipst ick Color Yellow Not Available [facility] [place] [address], [place], [address], 03/09/2023 11:01:52 03/09/20 23 03/09/2023 US, bladd er No observ ation record ed. [email or web address] [facility] [address] [place] [address] [facility], [place], [address], 03/09/2023 16:09:48 03/16/20 23 03/16/2023 US, bladd er No observ ation record ed. [email or web address] [facility] [address] [place] [address] [address], [place], [address], 03/17/2023 15:23:16 Result Notes None recorded. Problems Name Problem SNOMED Code Status Onset Date Resolution Date Notes Provider Name and Address Organization Details Recorded Time Pain of joint of wrist 993605214 Active Not Available [facility] 3 23:27:03 Closed fracture of lateral malleolus 76795995 Active Not Available [facility] 3 23:27:03 Fracture of lower leg 106661627 Active Not Available [facility] 3 23:27:03 Recurrent urinary tract infection 753826231 Active 023 Not Available [facility] 3 23:27:03 Problem Notes None recorded. Procedures Surgical History Date Name Laterality Status Provider Name and Address Organization Details Recorded Time Rotator cuff surgery completed WAYNE Abdul - [place] [facility] 03/09/2023 11:58:14 oophorectomy completed WAYNE Abdul - [facility] [place] [facility] 03/09/2023 12:00:01 Tubal Ligation completed Felicita Sofia MA [facility] [employer] [facility] 03/09/2023 12:00:21 Imaging Results Imaging Date Name Status LastModified by Organiz ation Details LastModified Time 03/09/2023 US, bladder completed [email or web address] [facility] [address] [facility] [address], [place], [address], 03/09/2023 16:09:48 03/16/2023 US, bladder completed [email or web address] [facility] [address] [facility] [address], [place], [address], 03/17/2023 15:23:16 Procedure Notes None recorded. Medical Equipment None Reported. Allergies Allergen ID Allergen Name Allergen Category Reaction Reaction Severity Criticality Documentation Date Start Date Code Code System Note Provider Name and Address Organization Details Recorded Time 02955 codeine medicatio n Not available Not available Not available 03/09/2023 2670 RxNorm Felicita Sofia MA null, [facility] [employer] [facility] 11:51:56 Medications Name Sig Start Date Stop [...] Updated DateTime 03/09/2023 154.94 cm WAYNE Abdul [facility] [employer] 03/09/2023 11:51:49 Date Recorded Oxygen saturation Oxygen saturation in Arterial blood by Pulse oximetry Body mass index (BMI) Body weight Body temperature Heart rate Systolic blood pressure Diastolic blood pressure Provider Name and Address Organization Details Last Updated DateTime 3 98 % 98 % 24.2 kg/m2 11166.8 2 g 98.2 [degF] 89 /min 136 mm[Hg] 82 mm[Hg] NOEMÍ [facility] [employer] 3 12:05:57 Social History Question Answer Notes LastModified by Organizat ion Details LastModified Time Tobacco Smoking Status Never Smoker Felicita Sofia MA [facility], [place] [facility] 03/09/2023 12:02:42 What Is Your Level Of Caffeine Consumption? Moderate Information not available 03/09/2023 Have You Ever Been Counseled For Unhealthy Alcohol Use? No Information not available 03/09/2023 Has Tobacco Cessation Counseling Been Provided? No Information not available 03/09/2023 Sex: Unknown Functional Status Question Answer Note LastModified by Organizat ion Details LastModified Time Do you use any illicit or recreational drugs? No Information not available 03/09/2023 Do you or have you ever used any other forms of tobacco or nicotine? No Information not available 03/09/2023 What is your level of alcohol consumption? Occasional Information not available 03/09/2023 Mental Status None recorded. Family History Relationship Description Onset Age of this Age Resolved Age Notes LastModified by Organization Details LastModified Time Father Diabetes mellitus Not available 2022 11:56:38 Father Heart disease Not available 2022 11:57:00 Mother Heart disease Not available 2022 11:57:00 Mother Hypertensive disorder Not available 2022 11:57:15 Medical History Condition Response BLINDNESS N CYSTITIS N RHEUMATIC FEVER N KIDNEY STONES N BLADDER PROBLEMS N Enlarged Prostate N MRSA N LUNG DISEASE/DISORDER N HISTORY OF DRUG ABUSE N RADIATION / CHEMOTHERAPY N COPD N BLOOD DISEASES N SHINGLES N BOWEL PROBLEMS N DEPRESSION (INCLUDING POST ) N FAILED BACK SYNDROME N STROKE/TIA N THYROID DISEASE N BENIGN PROSTATIC HYPERPLASIA N OBESITY N GERD/NAUSEA N ANEURYSM N URINARY/BLADDER/KIDNEY PROBLEMS N Increased Urination N CORONARY ARTERY DISEASE (CAD) N Do you have Advance directive? N USE OF BLOOD THINNERS N EMPHYSEMA N GASTROINTESTINAL DISORDER N GASTROINTESTINAL BLEEDING N BLOOD CLOTS N Difficulty Urinating N ASTHMA N Abdominal Pain N CATARACTS N ERECTILE DYSFUNCTION N ARTERIAL INSUFFICIENCY N [...] SNOMED-CT Code Diagnosis ICD10 Code Diagnosis Note [id number] Juan Hernandez MD [facility] [address] [place] [address] 03/09/2023 11:38:27 03/09/2023 12:32:58 Recurrent urinary tract infection 446355797 N39.0 UA today with tr gabriella. Will [...] Devries Member ID Guarantor Name 03/09/2023 1 [facility] (MEDICAID HMO) [id number] Dominique Simpson [id number] Dominique Simpson Notes Date Note Type Note [...] Coli/Klebsiella1/2 023- coag neg staph Kurt Callaway, CURTAIN CLEANER [address] [facility], [facility] [address], [place], [address], [place] [facility] [employer] [facility] 03/09/2023 12:50:55 OBGyn Episode No OBEpisode recorded.
--- NOTE | 2024-12-12 14:10 | ED_ITS ---
HPI - General Adult General Chief complaint: Back Pain/Injury Stated complaint: back pain Time Seen by Provider: 12/12/24 14:10 Source: patient Mode of arrival: ambulatory Limitations: no limitations History of Present Illness HPI narrative: 59-year-old white female history of low back injury at work was seen in the emergency room had a CT scan that showed no fractures. She follow up with work comp physician and the MRI was ordered last 4 days ago. She saw the work comp doctor today and they did not have a report back. She ran out of her [place] last night she was requesting [place] and the doctor would not prescribe her any. Your for her back to her primary care provider who will not give her any [place]. She took some Naprosyn and she is already on meloxicam. She says her pain is a 4/10 when she is taking the [place] now she rates as 9/10. Denies any bowel or bladder problems numbness or tingling or weakness fever problems walking talking seeing or hearing cough runny nose sore throat swelling lumps or bumps bleeding or bruising dizziness or lightheadedness or any other complaints. Related Data Home Medications Medication Instructions Recorded Confirmed Last Taken Type gabapentin 300 mg capsule 300 mg PO TID 09/04/19 07/01/23 Unknown History cetirizine 10 mg tablet 10 mg PO DAILY 04/23/22 07/01/23 Unknown History trazodone 50 mg tablet 50 mg PO DAILY 04/23/22 07/01/23 Unknown History insulin glargine 100 unit/mL (3 20 unit subcut BID 04/29/24 Unknown History mL) subcutaneous pen (Lantus Solostar U-100 Insulin) atorvastatin 40 mg tablet 40 mg PO QPM 12/02/24 Unknown History glipizide 5 mg tablet, extended 5 mg PO DAILY 12/02/24 Unknown History release 24 hr Allergies Allergy/AdvReac Type Severity Reaction Status Date / Time codeine AdvReac Mild Nausea and Verified 12/12/24 13:57 Vomiting Review of Systems Review of Systems: All systems reviewed & are unremarkable except as noted in HPI and below PMFSH Past Medical History Medical History History of COVID-19 Diabetes Bronchitis Peripheral neuropathy HTN (hypertension) HLD (hyperlipidemia) Surgical History Surgical History History of lumbar surgery L4-L5 fusion History of rotator cuff surgery lt rotator cuff, 2 screws History of hysterectomy History of tubal ligation History of bilateral oophorectomy History of inguinal hernia repair As baby Family History Family History Mother Hypertension Father Family history of diabetes mellitus in first degree relative Family history of coronary artery disease Social History Social History Smoking status: Never smoker Alcohol intake: never Gender identity (if verbalized by the patient): Female Exam Narrative: White female patient with moderatedistress. Head normocephalic, atraumatic. Eyes conjunctiva pink sclera nonicteric. Extraocular movements are intact. Neck is supple nontender no lymphadenopathy. Back is nontender. Lungs are clear. Heart is regular rate and rhythm without murmurs gallops or rubs. back upper middle lower back nontender mild parasacral tenderness especially on the left. . Hips range of motion are normal. Negative straight leg raise bilaterally. . Abdomen is soft and nontender no hepatosplenomegaly or masses no CVA tenderness no abdominal bruits. Extremities no cyanosis clubbing or edema. Skin is warm and dry without rashes or lesions. Neurological patient is alert and oriented x4. Motor and sensory grossly intact. Gait is normal. Course Vital Signs Vital signs: Vital Signs Temperature 36.8 C 12/12/24 13:55 Pulse Rate 89 12/12/24 13:55 Respiratory Rate 16 12/12/24 13:55 Blood Pressure 133/91 H 12/12/24 13:55 Pulse Oximetry 98 12/12/24 13:55 Oxygen Delivery Room Air 12/12/24 13:55 Temperature 36.8 C 12/12/24 15:04 Pulse Rate 99 12/12/24 15:04 Respiratory Rate 17 12/12/24 15:04 Blood Pressure 123/75 12/12/24 15:04 Pulse Oximetry 99 12/12/24 15:04 Oxygen Delivery Room Air 12/12/24 15:04 Medical Decision Making MDM Narrative Medical decision making narrative: Patient was placed in Room # 4 History and physical was performed. Independent Historian: patient External Source Review: CT results from ED visit reviewed. Differential Dx includes but not limited to: Medications were Reviewed: Home meds reviewed Independently Interpreted by me: Meds, treatment, ED course: Toradol 30 mg IM Social Situation Impacting Patients Care: work comp injury Shared decision Making: evaluation was discussed all questions were asked and answered patient agreed with the plan. DISCHARGE DIAGNOSIS: Acute low back pain DISPOSITION: discharge home CONDITION AT DISCHARGE: stable Vital Signs Vital Signs: Vital Signs Temperature 36.8 C 12/12/24 13:55 Pulse Rate 89 12/12/24 13:55 Respiratory Rate 16 12/12/24 13:55 Blood Pressure 133/91 H 12/12/24 13:55 Pulse Oximetry 98 12/12/24 13:55 Oxygen Delivery Room Air 12/12/24 13:55 Temperature 36.8 C 12/12/24 15:04 Pulse Rate 99 12/12/24 15:04 Respiratory Rate 17 12/12/24 15:04 Blood Pressure 123/75 12/12/24 15:04 Pulse Oximetry 99 12/12/24 15:04 Oxygen Delivery Room Air 12/12/24 15:04 Discharge Plan Discharge Clinical Impression: Acute low back pain Qualifiers: Back pain laterality: unspecified Sciatica presence: without sciatica Qualified Code(s): M54.50 - Low back pain, unspecified Patient Disposition: Home Condition: Stable Instructions: Acute Low Back Pain (ED) Additional Instructions: taking meloxicam daily. [place] 5 , 4 times a day as needed for pain. follow-up with work comp doctor and your primary care provider tomorrow. Return if you get worse or develops any new symptoms. Patient Language: Brazilian Prescriptions: New hydrocodone-acetaminophen 5-325 mg tablet 1 tablet PO Q6H PRN (Reason: pain) Qty: 8 0RF No Action atorvastatin 40 mg tablet 40 mg PO QPM glipizide 5 mg tablet extended release 24hr 5 mg PO DAILY hydrocodone-acetaminophen 5-325 mg tablet 1 tablet PO Q8H PRN (Reason: pain) Qty: 20 0RF meloxicam 15 mg tablet 15 mg PO DAILY 15 Days Qty: 15 0RF gabapentin 300 mg Capsule 300 mg PO TID cetirizine 10 mg tablet 10 mg PO DAILY trazodone 50 mg tablet 50 mg PO DAILY insulin glargine [Lantus Solostar U-100 Insulin] 100 unit/mL (3 mL) insulin pen 20 unit SUBCUT BID Follow-up/Referrals: Garcia,Chetna Coffman APN [Primary Care Provider] - Time of Disposition: 14:33
--- OUTSIDE RECORDS SUMMARY | 2024-12-12 14:27 | XMS_ITS | Clinical Summary ---
Author Organization [facility] Address [address] [place] [address] Care Team Providers Care Medical Logistics Specialist Name Role Phone La Chiang MD Primary Care Provider [phone] Social History Tobacco Use Types Packs/Day Years [...] age to complete this topic Care Teams Medical Logistics Specialist Relationship Specialty Start Date End Date La Chiang MD [address] [address] PCP - General 5/9/12
--- OUTSIDE RECORDS SUMMARY | 2024-12-12 14:27 | XMS_ITS | Clinical Summary ---
Author Organization [facility] Address [address], [address] [address] Phone Care Team Providers Care Head Charrer Name Role Phone Chetna Garcia APRN, CNP Primary Care Provider [phone] Allergies No known active allergies Medications ursodiol [...] is made to exams dated: 03/21/[address] [facility], 08/11/2017 [facility], and 03/20/2014 [facility]. BREAST TISSUE:There are scattered fibroglandular [...] exam. Electronically signed by: Kaylan servin/olivier:03/25/2023 11:04:31 Post Acute Care Nurse Practitioner(s): RT Vani(R)(M), [facility] letter sent: Normal Exam Reading location: [facility] BI-RADS: 2 Benign Procedure Note Kaylan [...] is made to exams dated: 03/21/[address] [facility], 08/11/2017 [facility], and 03/20/2014 [facility]. BREAST TISSUE:There are scattered fibroglandular [...] exam. Electronically signed by: Kaylan servin/olivier:03/25/2023 11:04:31 Post Acute Care Nurse Practitioner(s): RT Vani(R)(M), [facility] letter sent: Normal Exam Reading location: [facility] BI-RADS: 2 Benign Chetna Garcia APRN, CNP IMDian MAMMO ORDERABLES Amarilys l Result from Last 3 Months or Most Recently Relevant to Health Maintenance Insurance MEDICAID [place] Care Teams Head Charrer Relationship Specialty Start Date End Date Chetna Garcia APRN, CNP [address] [place] [address] PCP - General Family Medicine 01/25/19
--- OUTSIDE RECORDS SUMMARY | 2024-12-12 14:27 | XMS_ITS | Clinical Summary ---
Author Organization [facility] [address] [facility] lto Address [address] [place] [address] Care Team Providers Care Chute Builder Name Role Phone Chetna Garcia NP Primary Care Provider Allergies Active Allergy Reactions Criticality Noted Date Comments Codeine Nausea And Vomiting 06/04/2021 Medications insulin syringe-needle U-100 1 mL 25 gauge x 5/8 syringe lantus insulin twice daily 100 Syringe 6 10/31/19 17 Active TRUE METRIX GLUCOSE TEST STRIP strip 6 03/12/20 17 Active FLUVIRIN 6556-6694, PF, 45 mcg (15 mcg x 3)/0.5 [...] with long-term current use of insulin ([facility]),Diabetic polyneuropathy associated with type 2 diabetes mellitus (HCC) Inject 0.24 mL (24 Units total) under the skin 2 (two) times a day. 3 pen 3 11/13/19 18 Active gabapentin (NEURONTIN) 300 mg capsuleIndications :Type 2 diabetes mellitus with diabetic neuropathy, with long-term current use of insulin ([facility]),Diabetic polyneuropathy associated with type 2 diabetes mellitus (HCC),Type 2 diabetes mellitus with diabetic polyneuropathy, with long-term current use of insulin ([facility]) TAKE 1 CAPSULE BY MOUTH THREE [...] Plan (01/14/2023 3:39 PM CDT): Hearing test [facility] in [place] Otitis media 08/11/2017 Referred otalgia of left ear 08/11/2017 Assessment & Plan (01/14/2023 3:39 PM CDT): Hearing test [facility] in [place] Pain in wrist 09/09/2016 Overview (10/31/2016): Left [...] on file Legal Sex Female 3:15 PM PROGRAM SUPERVISOR Gender Identity Not on file Sexual Orientation [...] Read Routine (OP Routine) 08/11/2017 3:43 PM PROGRAM SUPERVISOR Screening breast examination PAP SMEAR WITH HPV [...] Mammogram Bilateral W Evgeny (08/11/2017 3:43 PM PROGRAM SUPERVISOR) Anatomical Region Laterality Modality Breast Bilateral Mammography Addenda Addendum by Jose Alejandro Garsia MD on 11/06/2017 7:18 AM CDT ADDENDUM #1 Comparison is now made to a prior study from 03/20/2014 from [facility]. No interval suspicious mass or calcification [...] Alejandro Garsia M.D. Impressions 08/11/2017 3:58 PM PROGRAM SUPERVISOR 1. NO DEFINITIVE MAMMOGRAPHIC EVIDENCE OF MALIGNANCY. IF PRIOR STUDIES BECOME AVAILABLE AN ADDENDUM WILL BE ISSUED OTHERWISE ANNUAL FOLLOW-UP RECOMMENDED. BI-RADS 2 Electronically signed by: Jose Alejandro Garsia M.D. Narrative 08/11/2017 3:58 PM PROGRAM SUPERVISOR SCREENING MAMMOGRAM BILATERAL W EVGENY HISTORY: Encounter [...] by: Jose Alejandro Garsia M.D. Katie Duarte FIELD SALES REPRESENTATIVE IMG MAMMO PROCEDURES Edit ed Result - Final * PAP SMEAR WITH HPV (06/26/2017) Pap smear Unknown Comment:[place] 06/2017 Result [facility] Provider HEALTH MAINTENANCE Final Result * DIABETES FOOT EXAM (03/02/2017) Diabetic Foot Exam Normal SCRIBED DM FOOT SITES SENSED 6 Comment:6:6 Result [facility] Provider HEALTH MAINTENANCE Final Result * LIPID PANEL (09/10/2016) Lipid Panel Abnormal Comment:PZ=490 HDL=37 JT=691 EJU=009 Result [facility] Provider HEALTH MAINTENANCE Final Result * DIABETES EYE EXAM (02/25/2016) Diabetic Eye Exam Normal Result [facility] Provider HEALTH MAINTENANCE Final Result from Last 3 Months or Most Recently Relevant to Health Maintenance Insurance [facility] [place] [address] [facility] Care Teams Chute Builder Relationship Specialty Start Date End Date Chetna Garcia NP [address] [place] [address] PCP - General Nurse Practitioner 10/16/22
--- OUTSIDE RECORDS SUMMARY | 2024-12-12 14:27 | XMS_ITS | Clinical Summary ---
Author Organization [facility] [employer] Address [address] [place] [address] Care Team Providers Care Video Machines Mechanic Name Role Phone Chetna Garcia APRN-BURR MACHINE OPERATOR Primary Care Provider [phone] Source Comments [facility] [employer],non-owned Affiliates and Associated Physician Practices is amultiple site organization consisting of ambulatory clinics and hospital sitesin [place], [place] and [place]. This disclosure is being madepursuant to the Care Everywhere program and may not contain all information available regarding this patient. Last updated 18.[facility] [employer] Allergies Active Allergy Reactions Criticality Noted Date [...] Comments Blood Pressure 131/89 07/18/2021 1:59 PM SYSTEMS ENGINEER Pulse 102 07/18/2021 1:59 PM SYSTEMS ENGINEER Temperature 36.7 C (98 F) 07/18/2021 1:59 PM SYSTEMS ENGINEER Respiratory Rate 20 07/18/2021 1:59 PM SYSTEMS ENGINEER Oxygen Saturation 99% 07/03/2021 4:59 PM SYSTEMS ENGINEER Inhaled Oxygen Concentration - - Weight 51.3 kg (113 lb) 07/18/2021 1:59 PM SYSTEMS ENGINEER Height 154.9 cm (5' 1 ) 07/18/2021 1:59 PM SYSTEMS ENGINEER Body Mass Index 21.35 07/18/2021 1:59 PM SYSTEMS ENGINEER Plan of Treatment Health Maintenance Due Date [...] patient's age to complete this topic Insurance [facility] Care Teams Video Machines Mechanic Relationship Specialty Start Date End Date Chetna Garcia APRN-[address] [place] [address] PCP - General Nurse Practitioner Family 07/03/21
--- OUTSIDE RECORDS SUMMARY | 2024-12-12 14:27 | XMS_ITS | Continuity of Care Document ---
Author Name [facility] Organization [facility] Care Team Providers Care Data Security Analyst Name Role Phone [facility] Unavailable Unavailable Encounters [...] ADM Date DC Date Status Disposition Source [facility] Outpatient Encounter [id number] JUSTINE DHALIWAL 01/[address] [facility] SUJATHA Garcia
--- OUTSIDE RECORDS SUMMARY | 2024-12-12 14:27 | XMS_ITS | CONTINUITY OF CARE DOCUMENT ---
Author Name shai shai Address Unknown Organization [facility] Address [address] [place] [address] Phone [phone] Care Team Providers Care Ankle Patch Molder Name Role Phone Mika FERNANDO, Tanya Unavailable [phone] STEFAN FERNANDO, JUDITH Woody Unavailable CELI FERNANDO, MOODY Unavailable INSURANCE PROVIDERS Payer name Policy type / Coverage type [place] red green party ID BRUNA MONSON Workers' compensation health [facility] [id number]
--- OUTSIDE RECORDS SUMMARY | 2024-12-12 14:27 | XMS_ITS | Referral Summary ---
Author Organization [facility] [address] [facility] lto Address [address] [place] [address] Care Team Providers Care Boat Person Name Role Phone Chetna Garcia NP Primary Care Provider Allergies Active Allergy Reactions Criticality Noted Date Comments Codeine Nausea And Vomiting 06/04/2021 Medications insulin syringe-needle U-100 1 mL 25 gauge x 5/8 syringe lantus insulin twice daily 100 Syringe 6 10/31/19 17 Active TRUE METRIX GLUCOSE TEST STRIP strip 6 03/12/20 17 Active FLUVIRIN 4913-2489, PF, 45 mcg (15 mcg x 3)/0.5 [...] neuropathy, with long-term current use of insulin ([facility]),Diabetic polyneuropathy associated with type 2 diabetes mellitus (HCC) Inject 0.24 mL (24 Units total) under the skin 2 (two) times a day. 3 pen 3 11/13/19 18 Active gabapentin (NEURONTIN) 300 mg capsuleIndications :Type 2 diabetes mellitus with diabetic neuropathy, with long-term current use of insulin ([facility]),Diabetic polyneuropathy associated with type 2 diabetes mellitus (HCC),Type 2 diabetes mellitus with diabetic polyneuropathy, with long-term current use of insulin ([facility]) TAKE 1 CAPSULE BY MOUTH [...] Plan (01/14/2023 3:39 PM CDT): Hearing test [facility] in [place] Otitis media 08/11/2017 Referred otalgia of left ear 08/11/2017 Assessment & Plan (01/14/2023 3:39 PM CDT): Hearing test [facility] in [place] Pain in wrist 09/09/2016 Overview (10/31/2016): Left [...] on file Legal Sex Female 3:15 PM CHILD PROTECTIVE SERVICES SOCIAL WORKER Gender Identity Not on file Sexual Orientation [...] Read Routine (OP Routine) 08/11/2017 3:43 PM CHILD PROTECTIVE SERVICES SOCIAL WORKER Screening breast examination PAP SMEAR WITH HPV [...] Mammogram Bilateral W Evgeny (08/11/2017 3:43 PM CHILD PROTECTIVE SERVICES SOCIAL WORKER) Anatomical Region Laterality Modality Breast Bilateral Mammography Addenda Addendum by Jose Alejandro Garsia MD on 11/06/2017 7:18 AM CDT ADDENDUM #1 Comparison is now made to a prior study from 03/20/2014 from [facility]. No interval suspicious mass or calcification [...] Alejandro Garsia M.D. Impressions 08/11/2017 3:58 PM CHILD PROTECTIVE SERVICES SOCIAL WORKER 1. NO DEFINITIVE MAMMOGRAPHIC EVIDENCE OF MALIGNANCY. IF PRIOR STUDIES BECOME AVAILABLE AN ADDENDUM WILL BE ISSUED OTHERWISE ANNUAL FOLLOW-UP RECOMMENDED. BI-RADS 2 Electronically signed by: Jose Alejandro Garsia M.D. Narrative 08/11/2017 3:58 PM CHILD PROTECTIVE SERVICES SOCIAL WORKER SCREENING MAMMOGRAM BILATERAL W EVGENY HISTORY: Encounter [...] (06/26/2017) Pap smear Unknown Comment:[place] 06/2017 [facility] Provider HEALTH MAINTENANCE Final Result * DIABETES FOOT EXAM (03/02/2017) Diabetic Foot Exam Normal SCRIBED DM FOOT SITES SENSED 6 Comment:6:6 Result [facility] Provider HEALTH MAINTENANCE Final Result * LIPID PANEL (09/10/2016) Lipid Panel Abnormal Comment:ZG=550 HDL=37 [place]=332 QQX=819 [facility] Provider HEALTH MAINTENANCE Final Result * DIABETES EYE EXAM (02/25/2016) Diabetic Eye Exam Normal [facility] Provider HEALTH MAINTENANCE Final Result from Last 3 Months or Most Recently Relevant to Health Maintenance Insurance [facility] [place] [address] Care Teams Boat Person Relationship Specialty Start Date End Date Radha, Chetna Estrada NP [address] [place] [address] PCP - General Nurse Practitioner 10/16/22
[2024-12-12] MEDS: KETOROLAC 30 MG/ML VIAL (*BKC) IM (14:32)
[2024-12-12 15:04] VITALS: BP 123/75; PULSE 99; RESP 17; TEMP 36.8; O2SAT 99
== END 2024-12-12 15:04 | disposition home or self-care (01) ==
PROVIDERS: Emergency Provider Emergency Medicine; PCP Nurse Practitioner Family
DX: M54.50 Low back pain, unspecified (principal); E11.9 Type 2 diabetes mellitus without complications; Z79.4 Long term (current) use of insulin; E78.5 Hyperlipidemia, unspecified; I10 Essential (primary) hypertension
CPT/HCPCS: 96372; 99283; J1885

== ENCOUNTER 2025-05-30 17:05 | Emergency (ER) | payer BC, SELFPAY ==
--- OUTSIDE RECORDS SUMMARY | 2009-09-04 10:15 | XMS_ITS | Continuity of Care Document ---
Author Organization [facility] Address [address] [facility] [address] [place] [address] Phone Care Team Providers Care Market Risk Manager Name Role Phone Marcum OD, Arun Unavailable Unavailable Procedures Procedure Date Eye Exam & Treatment Refraction Eye Exam & Treatment Advance Directives Directive Yes / No Effective Date File Name No Information Encounters Encounter Description Practice Location Reason(s) For Visit Diagnoses Date Provider Providers Copied on Encounter [facility], [address] [place] [address] [address], [place], [place], [id number], tel:[phone] [facility] No Information 9-201 0 Marcum OD Arun. [address] [facility] , [address], [place], [address], [place]. tel:[phone] [facility], [address] [place] [address] [address], [place], [place], [id number], tel:[phone] SEC [facility] No Information 4-200 7 Alfredo Riojas. [address] [facility], [address], [place], [place], [id number], [place]. tel:[phone] Family History Family Member Type Diagnosis Age At Onset No Information Payers Payer name Insurance type Covered republican ID Authoriza tion(s) Medicaid [facility] [id number] Social History Type Description Quantity Date Captured Comments Sex Female Smoking Status No Information Chief Complaint And Reason For Visit No Information Reason For Referral Reason For Referral No Information History Of Present Illness Encounter Date Complaint History Of Prese nt Illness No Information Functional Status Date Functional Assessmen t No Information Instructions Date Instruction Additional Infor mation No Information Assessments Type Assessment Date No Information Patient Care Teams Name Effective Dates (start - stop) Status Members No Information
--- OUTSIDE RECORDS SUMMARY | 2014-02-07 11:42 | XMS_ITS | Continuity of Care Document ---
Author Organization [employer] [facility] [place] Address [address] [place] [address] [address] [place] [address] Phone Care Team Providers Care Telesales Manager Name Role Phone Primitivo CATARINOKylie Thompson Unavailable Unavailable Procedures Procedure Date PT RE-EVALUATION THERAPEUTIC EXERCISES NEUROMUSCULAR RE-ED MANUAL THERAPY FUNC ACTIVITY 15 MIN NEUROMUSCULAR RE-ED FUNC ACTIVITY 15 MIN THERAPEUTIC EXERCISES THERAPEUTIC EXERCISES NEUROMUSCULAR RE-ED MANUAL THERAPY FUNC ACTIVITY 15 MIN THERAPEUTIC EXERCISES NEUROMUSCULAR RE-ED MANUAL THERAPY FUNC ACTIVITY 15 MIN HOT/COLD PACK ELECTRIC STIMULATION UNA THERAPEUTIC EXERCISES NEUROMUSCULAR RE-ED FUNC ACTIVITY 15 MIN MANUAL THERAPY HOT/COLD PACK ELECTRIC STIMULATION UNATT PT RE-EVALUATION THERAPEUTIC EXERCISES NEUROMUSCULAR RE-ED MANUAL THERAPY FUNC ACTIVITY 15 MIN HOT/COLD PACK ELECTRIC STIMULATION UNATT NEUROMUSCULAR RE-ED FUNC ACTIVITY 15 MIN HOT/COLD PACK ELECTRIC STIMULATION UNATT THERAPEUTIC EXERCISES NEUROMUSCULAR RE-ED FUNC ACTIVITY 15 MIN HOT/COLD PACK ELECTRIC STIMULATION UNATT THERAPEUTIC EXERCISES THERAPEUTIC EXERCISES NEUROMUSCULAR RE-ED FUNC ACTIVITY 15 MIN HOT/COLD PACK ELECTRIC STIMULATION UNATT THERAPEUTIC EXERCISES NEUROMUSCULAR RE-ED FUNC ACTIVITY 15 MIN HOT/COLD PACK ELECTRIC STIMULATION UNATT THERAPEUTIC EXERCISES NEUROMUSCULAR RE-ED HOT/COLD PACK ELECTRIC STIMULATION UNA PT EVALUATION THERAPEUTIC EXERCISES NEUROMUSCULAR RE-ED HOT/COLD PACK ELECTRIC STIMULATION Electrodes Advance Directives Directive Yes / No Effective Date File Name No Information Encounters Encounter Description Practice Location Reason(s) For Visit Diagnoses Date Provider Providers Copied on Encounter [facility] [address] [facility] [address], [place], [id number], [phone] [place] No Information - 4 Langford Kylie. [address] [place] [address], [address], [place], [facility], . tel: [phone] [facility] [address], [place], [id number], tel:[phone] [place] No Information 2-201 4 Langford Kylie. [address] [facility], [address], [place], [place], [facility], [place]. tel: [phone] [facility] [address], [place], [place], [id number], tel:[phone] [place] No Information 0 9-201 4 Langford Kylie. [address] [facility], [address], [place], [place], [facility], . tel: [phone] [facility] [address], [place], [place], [id number], [place] tel:[phone] [place] No Information May-0 7-201 4 Langford Kylie. [address] [place] [address], [address], [place], [address], [place]. tel: [phone] [facility] [address], [place], [place], [id number], [place] tel: [phone] [place] No Information Apr-3 0-201 4 Langford Kylie. [address] [place] [address], [address], [place], [address], [place]. tel: [phone] [address], [place], [place], [address], [place] tel:[phone] [place] No Information Apr-2 8-201 4 Langford Kylie. [address] [place] [address], [address], [place], [address], [place]. tel: [phone] [facility] [address], [place], [place], [address], [place] tel:[phone] [place] No Information Apr-2 4-201 4 Langford Kylie. [address] [place] [address], [address], [place], [address], [place]. tel: [phone] [address], [place], [place], [address], [place] tel:[phone] [place] No Information Apr-2 3-201 4 Langford Kylie. [address] [place] [address], [address], [place], [address], [place]. tel: [phone] [facility] [address], [place], [place], [address], [place] tel:[phone] [place] No Information Apr-2 1-201 4 Langford Kylie. [address] [place] [address], [address], [place], [address], [place]. tel: [place] [phone] [facility], [place], [place], [address], tel:[phone] [place] No Information 8 4 Langford Kylie. [address] [place] [address], [address], [place], [facility], . tel: [phone] [facility] [address] [place], [place] [address], [place], [place], [id number], tel:[phone] [place] No Information 6 4 Langford Kylie. [address] [place] [address], [address], [place], [facility], . tel: [phone] [address], [place], [place], [address], tel:[phone] [place] No Information 4 Langford Kylie. [address] [place] [address], [facility] [address], [place], [facility], . tel: [phone] [address], [place], [place], [address], tel:[phone] [place] Lumbago 4 Langford Kylie. [address] [place] [address], [address] [address], . tel: [phone] Family History Family Member Type Diagnosis Age At Onset No Information Payers Payer name Insurance type Covered constitution party ID Shaw pierson(s) Rueda Ceci [id number] Social History Type Description Quantity Date Captured [...]
--- NOTE | ~2025-05-30 | XR_ITS ---
EXAMINATION: XR shoulder LT min 2V, 05/30/2025 17:15 [facility] HISTORY: pain COMPARISON: No comparisons available. Findings: No acute fracture or malalignment. Severe degenerative changes Soft tissues unremarkable. Impression: No acute fracture or malalignment. Reviewed, dictated and finalized at location P. [facility] Impression: No acute fracture or malalignment.
[2025-05-30 17:05] VITALS: BP 144/82; PULSE 93; RESP 16; TEMP 36.7; O2SAT 97
--- OUTSIDE RECORDS SUMMARY | 2025-05-30 17:08 | XMS_ITS | Clinical Summary ---
Author Organization [facility] Address [address] [place] [address] Care Team Providers Care Rubber Boots And Shoes Repairer Name Role Phone La Chiang MD Primary Care Provider [phone] Social History Tobacco Use Types Packs/Day Years [...] of 2) 2017 COVID-19 Vaccine ( - 2024-2 6 season) 2025 Influenza Adult (#1) 2025 Hepatitis A Vaccines Aged Out No long er eligible based on patient's age to complete this topic Meningococcal B Vaccine Aged Out No l onger eligible based on patient's age to complete this topic Meningococcal Vaccine Aged Out No desean romeo eligible based on patient's age to complete this topic RSV Immunizations Under 20 Months Aged Out No longer eligible based on patient's age to complete this topic Care Teams Rubber Boots And Shoes Repairer Relationship Specialty Start Date End Date La Chiang MD [address] [address] PCP - General 12/03/11
--- OUTSIDE RECORDS SUMMARY | 2025-05-30 17:08 | XMS_ITS | Data Portability ---
Author Organization [facility] [place] Address [address] [place] [address] Care Team Providers Care Commercial Loan Collection Officer Name Role Phone CONDE, WILLIE Primary Care [...] skeleton + vertebral fracture assessment 2020 021 [facility], [address] [place] [address], [address], 11:59:46 Medication Orders None recorded. Patient TargetsNo targets recorded. Patient InstructionsNo instructions recorded. Reason for Referral None Reported. Results Created Date Observation Date Name Description Value Unit Range Abnormal Flag Note LastModifiedBy Organization Detail LastModifiedTime 02/08/20 21 02/07/2021 IMAGE GUIDE D PAP AND HPV REGAR DLESS image guided Pap, HPV regardless of Pap result SEE RESULT S BELOW CASE REPOR T: Cytol ogy Gynec ologi jensen Repor t Case: [id number] Autho jayne alegria Provi chris: Boo Fish Colle cted: 02/07 1549 AIR INTELLIGENCE SPECIALIST Order ing Locat ion: [place] [facility] Recei piyush: 02/08 0759 First Scree n: Nacha mpass ak, Ester cervantes, CT Speci men: Scree [...] for Intra epith elial Lesio n or Rico randolphcy (NIL) Atrop hic cell wilver rn Elect mee huerta maureen d by Odilia [...] as clini og warra nted. Not Available [facility] (Lab) [address], [place], [address], 02/11/2021 17:11:36 02/08/20 21 02/07/2021 CT/GC (CAROLINE) , THINP REP VIAL chlamydia trachomatis, PCR Negati ve negati ve Not Available [facility] (Lab) [address], [place], [address], 02/11/2021 17:11:36 02/08/20 21 02/07/2021 CT/GC (CAROLINE) , THINP REP VIAL neisseria gonorrhoeae, PCR Negati ve negati ve Not Available [facility] (Lab) [address], [place], [address], 02/11/2021 17:11:36 02/08/20 21 02/07/2021 TRICH OMONA S VAGIN EMILY (RRNA ) trichomonas vaginalis ribosomal RNA (rrna) Negati ve negati ve Not Available [facility] (Lab) [address], [place], [address], 02/11/2021 17:11:37 03/21/20 21 03/21/2021 DEXA, axial skele ton + verte bral fract ure asses sment No observ ation record ed. BANKS Os ([facility]) Scheduling [address] [place], [address], 04/08/2021 11:09:59 Result Notes None recorded. Procedures Surgical History Date Name Laterality Status Provider Name and Address Organization Details Recorded Time oophorectomy completed Whitley Peterson PA - [facility] 02/07/2021 11:22:58 procedure on back completed Whitley Peterson [facility] 02/07/2021 11:23:17 partial repair of rotator cuff completed Whitley Peterson [facility] 02/07/2021 11:23:30 Imaging Results None recorded. Procedure Notes None recorded. Medical Equipment None Reported. Allergies Allergen ID Allergen Name Allergen Category Reaction Reaction Severity Criticality Documentation Date Start Date Code Code System Note Provider Name and Address Organization Details Recorded Time 34141 codeine medicatio n Not available Not available Not available 02/07/2021 2670 RxNorm Whitley Peterson [facility] 11:12:42 Medications Name Sig Start Date [...] Available No t Available Vitals Date Recorded Systolic And Diastolic Provider Name and Address Organization Details Last Updated DateTime 02/07/2021 136/80 mm[Hg] Yina Soliz, [facility] [address], [place], [address], [facility] 02/07/2021 11:39:09 Date Recorded Body height Body mass index (BMI) Body weight Provider Name and Address Organization Details Last Updated DateTime 02/07/2021 154.94 cm 22.1 kg/m2 77333.31 g Whitley Peterson [facility] 02/07/2021 11:12:25 Social History Question Answer Notes LastModified by Organizat ion Details LastModified Time Tobacco Smoking Status Never Smoker Whitley Peterson [facility], [facility] 02/07/2021 11:22:14 Are You Blind Or [...] not available 02/07/2021 Are you able to walk independently without assistance or assistive devices? YESWOREST Information not available 02/07/2021 What is your exercise level? Moderate Information not available 02/07/2021 Mental Status Question Answer Note LastModified by Organization D etails LastModified Time Do you feel stressed (tense, restless, nervous, or anxious, or unable to sleep at night)? [id number] Information not available 02/07/2021 Family History Relationship Description Onset Age of this Age Resolved Age Notes LastModified by Organization Details LastModified Time Father Heart disease Not available 2020 11:21:01 Father Diabetes mellitus Not available 2020 11:21:09 Paternal Grandfather Malignant neoplasm of colon Not available 2020 11:21:41 Medical [...] Diagnosis SNOMED-CT Code Diagnosis ICD10 Code Diagnosis IMO Codes Diagnosis Note [address]31 Yina Soliz [facility] [address] [address] 02/07/2021 10:21:43 02/07/2021 11:49:20 Gynecologic examination 43099493 Z01.419 Take Calcium with Vitamin D 12-1500mg daily. Do monthly self breast exams. It is advised to get annual flu shot in the fall and she could obtain at [facility] or [facility] care clinic. If you haven't received [...] orderedmam mo ordered Note: Going to school manager provider relations. Postmenopa usal osteopenia [id number] M85.80 No menses since age 30yo d/t Hx of oopherecto my emergent situationT hin white female, early menopause are risk factors for osteopenia /osteoporo sis.Recomm ended Complete a baseline Dexa.Agree able. Health Concerns Section Related Observation LastModified by Organization Detai ls LastModified Time None Recorded Concern Status LastModified by Organization Details LastModified Time None Recorded Advance Directives Directive None Recorded Payers Insurance Date Sequence Insurance Name Policy Number Policy Devries Covered Member ID Devries Member ID Guarantor Name 02/04/2021 1 [facility] (MEDICAID HMO) [id number] Dominique Simpson [id number] Dominique Simpson Notes Date Note Type Note Provider Name and Address Organization Details Recorded Time 1 text/html Annual Solar Manufacturer'S Representative Post-MenopausalReported by PatientGenitourinary symptomsFor menopausal symptoms, patient reportsno menopausal symptomsandnormal vaginal lubrication. For vaginal bleeding, patient reportshistory of menopause having occurredandno history of post menopausal bleeding. For urinary symptoms, patient reportsno hematuria,no incontinence,no nocturia, andno urinary frequency. For vulva, patient reportsno genital lesionandno vulvar atrophy. For vagina, patient reportsnormal vaginal dischargeandno vaginal atrophy.Breast symptomsFor breast, patient reportsno breast lump,no nipple discharge, andno breast pain.Psychological symptomsFor sexual complaints, patient reportsno sexual complaints. For psychological symptoms, patient reportsno depressionandno anxiety.Preventative measuresFor preventive measures, patient reportsencourage regular mammograms starting age 40,encourage self breast examination,encourage regular exercise,encourage no tobacco use,needs to schedule mammogram,history of recent colonoscopy, andneeds to schedule bone density (hx of oopherectomy; no menses after age 30yo; lost ovary when a baby due to umbilical hernia surgery mishap; took secondary ovary out after emergency due to cyst.). Yina Soliz, [facility]- [address], [place], [address], [facility] 02/07/2021 11:46:06 OBGyn Episode Ob Episode Information Episode Created Date Number of Fetuses Patient Bloodtype Patient rh Status Prepregnancy Weight lbs Domestic Partner Domestic Partner Phone Father Name Solar/Renewable Energy Sales Status 02/08/20 21 1 CLOSED Fetus Data First Name Last Name Admitted to NICU Weight (g) Sex Living Outcome Pediatric Complications Fetus ID Race Codes Race Delivery Type 3288.54 2 M Full Term 17402 Vaginal Delivery Jude Calculation Initial Jude Date [...] Domestic Partner Domestic Partner Phone Father Name Solar/Renewable Energy Sales Status 02/08/20 21 1 CLOSED Fetus Data First Name Last Name Admitted to NICU Weight (g) Sex Living Outcome Pediatric Complications Fetus ID Race Codes Race Delivery Type 3713.55 7704 F Full Term 46139 Vaginal Delivery Jude Calculation Initial Jude Date [...] Domestic Partner Domestic Partner Phone Father Name Solar/Renewable [employer] Sales Status 02/08/20 21 1 CLOSED Fetus Data First Name Last Name Admitted to NICU Weight (g) Sex Living Outcome Pediatric Complications Fetus ID Race Codes Race Delivery Type 3175.14 4 F Full Term 87674 Vaginal Delivery Jude Calculation Initial Jude Date [...]
--- OUTSIDE RECORDS SUMMARY | 2025-05-30 17:08 | XMS_ITS | Clinical Summary ---
Author Organization [facility] [address] [facility] lto Address [address] [place] [address] Care Team Providers Care Key Operator Name Role Phone Chetna Garcia NP Primary Care Provider [phone] Allergies Active Allergy Reactions Criticality Noted Date Comments Codeine Nausea And Vomiting 06/04/2021 Medications insulin syringe-needle U-100 1 mL 25 gauge x 5/8 syringe lantus insulin twice daily 100 Syringe 6 10/31/19 17 Active TRUE METRIX GLUCOSE TEST STRIP strip 6 03/12/20 17 Active FLUVIRIN 9992-7387, PF, 45 mcg (15 mcg x 3)/0.5 [...] neuropathy, with long-term current use of insulin ([facility]),Diabetic polyneuropathy associated with type 2 diabetes mellitus (HCC) Inject 0.24 mL (24 Units total) under the skin 2 (two) times a day. 3 pen 3 11/13/19 18 Active gabapentin (NEURONTIN) 300 mg capsuleIndications :Type 2 diabetes mellitus with diabetic neuropathy, with long-term current use of insulin ([facility]),Diabetic polyneuropathy associated with type 2 diabetes mellitus (HCC),Type 2 diabetes mellitus with diabetic polyneuropathy, with long-term current use of insulin ([facility]) TAKE 1 CAPSULE BY MOUTH THREE TIMES [...] Plan (01/14/2023 3:39 PM CDT): Hearing test [facility] in [place] Otitis media 08/11/2017 Referred otalgia of left ear 08/11/2017 Assessment & Plan (01/14/2023 3:39 PM CDT): Hearing test [facility] in [place] Pain in wrist 09/09/2016 Overview (10/31/2016): Left [...] History Medical History Date Comments Diabetes mellitus 1995 Diabetes melli tus Family History Medical History Relation Name Comments [...] on file Legal Sex Female 3:15 PM JAVA XML DEVELOPER Gender Identity Not on file Sexual Orientation [...] 3:06 PM CDT Height 154.9 cm (5' 1) 01/14/2023 3:06 PM CDT Body Mass Index [...] 03/02/2018 03/02/2017, 03/02/2017 Hemoglobin A1C 05/14/2018 11/12/2017, 08/01/2017, 09/10/2016 Cervical Cancer Screening 06/26/2018 06/26/2017, Depression Screening 11/12/2018 11/12/2017, 07/16/2017, 07/16/2017, Additional history exists Pneumococcal vaccine <65 (2 of 2 - PCV) 09/29/2019 09/28/2018 Breast Cancer Screening-Mammogram 03/24/2024 03/24/2023, 03/24/2023, 03/21/2021, Additional history exists Covid-19 Vaccine (3 - 2024-2 6 season) 2025 02/01/2021, 12/28/2020 Influenza Vaccine (#1) 2025 0, 04/20/2019, 05/05/2018, Additional history exists DTaP/Tdap/Td Vaccine [...] Read Routine (OP Routine) 08/11/2017 3:43 PM JAVA XML DEVELOPER Screening breast examination PAP SMEAR WITH HPV [...] Mammogram Bilateral W Evgeny (08/11/2017 3:43 PM JAVA XML DEVELOPER) Anatomical Region Laterality Modality Breast Bilateral Mammography Addenda Addendum by Jose Alejandro Garsia MD on 11/06/2017 7:18 AM CDT ADDENDUM #1 Comparison is now made to a prior study from 03/20/2014 from [facility]. No interval suspicious mass or calcification [...] Alejandro Garsia M.D. Impressions 08/11/2017 3:58 PM JAVA XML DEVELOPER 1. NO DEFINITIVE MAMMOGRAPHIC EVIDENCE OF MALIGNANCY. IF PRIOR STUDIES BECOME AVAILABLE AN ADDENDUM WILL BE ISSUED OTHERWISE ANNUAL FOLLOW-UP RECOMMENDED. BI-RADS 2 Electronically signed by: Jose Alejandro Garsia M.D. Narrative 08/11/2017 3:58 PM JAVA XML DEVELOPER SCREENING MAMMOGRAM BILATERAL W EVGENY HISTORY: Encounter [...] Procedure Note Jose Alejandro Garsia MD / Provider, MD Roger - 08/11/2017 SCREENING MAMMOGRAM BILATERAL W EVGENY [...] by: Jose Alejandro Garsia M.D. Katie Duarte COMPENSATION ADJUSTER IMG MAMMO PROCEDURES Edit ed Result - Final * PAP SMEAR WITH HPV (06/26/2017) Pap smear Unknown Comment:[place] 06/2017 [facility] Provider HEALTH MAINTENANCE Final Result * DIABETES FOOT EXAM (03/02/2017) Pathologist [facility] Diabetic Foot Exam Normal SCRIBED DM FOOT SITES SENSED 6 Comment:6:6 [facility] Provider HEALTH MAINTENANCE Final Result * LIPID PANEL (09/10/2016) Pathologist [facility] Lipid Panel Abnormal Comment:BC=747 HDL=37 WP=127 VJB=430 [facility] Provider HEALTH MAINTENANCE Final Result * DIABETES EYE EXAM (02/25/2016) Diabetic Eye Exam Normal Result [facility] Provider HEALTH MAINTENANCE Final Result from Last 3 Months or Most Recently Relevant to Health Maintenance Insurance [facility] Care Teams Key Operator Relationship Specialty Start Date End Date Chetna Garcia NP [address] [place] [address] PCP - General Nurse Practitioner 10/16/22
--- OUTSIDE RECORDS SUMMARY | 2025-05-30 17:08 | XMS_ITS | Clinical Summary ---
Author Organization [facility] Address [address], [address] [address] Phone Care Team Providers Care Press Writer Name Role Phone Chetna Garcia APRN, CNP Primary Care Provider [phone] Allergies No known active allergies Medications ursodiol [...] 11:00 AM CDT Height 154.9 cm (5' 1) 01/26/2019 11:00 AM CDT Body Mass Index 23.05 01/26/2019 11:00 AM CDT Plan of Treatment Health Maintenance Due Date Last Done Comments Diabetes: Eye Exam 1967 Diabetes: Foot Exam 1967 Diabetes: Hemoglobin A1c 1967 Hepatitis C Virus (HCV) Screening 1967 Diabetes: Nephropathy Screening 1985 Hepatitis B Immunization (1 of 3 - 19+ 3-dose series) 1986 Cologuard 02/15/2012 Immunochemical Fecal Occult Blood 02/15/2012 Respiratory Syncytial Virus (RSV) Immunization (Adult) (1 - Risk 50-74 years 1-dose series) 2017 Zoster Immunization (2 of 3) 04/11/2017 2017 Pneumococcal Immunization (50+ years) (2 of 2 - PCV) 09/29/2019 09/28/2018 Influenza Immunization (#1) 2025 1007/2019, 04/20/2019, 05/05/2018, Additional history exists SARS-COV-2 Immunization (3 - 2024- season) 2025 02/01/2021, 12/28/2020 Colonoscopy 02/10/2029 02/10/2019 Colorectal Cancer Screening 02/10/2029 Pneumococcal Immunization Combined Discontinued 09/28/2018 DTaP/Tdap/Td Immunization Discontinued 03/05/2021, TdaP Immunization Completed 03/05/2021, 1974 Mammogram Discontinued 03/24/2023, 03/21/2021 Human Papillomavirus (HPV) Immunization Aged Out No longer eligible based on patient's age to complete this topic Meningococcal Immunization (ACWY) Aged Out No longer [...] Comparison is made to exams dated: 03/21/2021 [facility], 08/11/2017 [facility], and 03/20/2014 [facility]. BREAST TISSUE:There are scattered fibroglandular densities in [...] exam. Electronically signed by: Kaylan servin/olivier:03/25/2023 11:04:31 Social Scientist(s): RT Vani(R)(M), [facility] letter sent: Normal Exam Reading location: [facility] BI-RADS: 2 Benign Procedure Note Kaylan [...] Comparison is made to exams [facility]: [facility], 08[facility]2017 [facility], and 03/20/2014 [facility]. BREAST TISSUE:There are scattered fibroglandular densities in [...] signed by: Kaylan Zimmerman M.D. ab/penrad:03/25/2023 11:04:31 Social Scientist(s): RT Vani(R)(M), [facility] letter sent: Normal Exam Reading location: [facility] BI-RADS: 2 Benign Chetna Garcia APRN, CNP IMG MAMMO ORDERABLES Amarilys l Result from Last 3 Months or Most Recently Relevant [place] [address] MEDICAID [place] Care Teams Press Writer Relationship Specialty Start Date End Date Chetna Garcia APRN, CNP PCP - General Family Medicine 01/25/19
--- NOTE | 2025-05-30 17:11 | ED.UPPEXIN ---
HPI - Extremity Injury (Upper) General Chief Complaint: Extremity Injury, Upper Stated Complaint: LEFT SHOULDER PAIN Time Seen by Provider: 05/30/25 17:10 Source: patient Mode of arrival: ambulatory Limitations: no limitations History of Present Illness HPI narrative: Patient is a 60-year-old female with a left shoulder injury after falling down a couple of stairs last night. This was an accident. She has pain on the upper portion of the left shoulder with a bump in the area. She went to the urgent care with a did not have x-ray at this time. MD complaint: injury to: left and shoulder Onset (ago): day(s) (2) Other injuries: none Place: home Severity: moderate Severity scale (1-10): 5 Relieving factors: immobilization Exacerbating factors: movement of extremity Context: fall and injury Associated symptoms: denies other symptoms Treatments prior to arrival: other (None) Related Data Home Medications ?Medication ?Instructions ?Recorded ?Confirmed ?Last Taken ?Type gabapentin 300 mg capsule 300 mg PO TID 09/04/19 07/01/23 Unknown History cetirizine 10 mg tablet 10 mg PO DAILY 04/23/22 07/01/23 Unknown History trazodone 50 mg tablet 50 mg PO DAILY 04/23/22 07/01/23 Unknown History insulin glargine 100 unit/mL (3 20 unit subcut BID 04/29/24 Unknown History mL) subcutaneous pen (Lantus Solostar U-100 Insulin) atorvastatin 40 mg tablet 40 mg PO QPM 12/02/24 Unknown History glipizide 5 mg tablet, extended 5 mg PO DAILY 12/02/24 Unknown History release 24 hr Allergies Allergy/AdvReac Type Severity Reaction Status Date / Time codeine AdvReac Mild Nausea and Verified 05/30/25 17:21 Vomiting Review of Systems Review of Systems: All systems reviewed & are unremarkable except as noted in HPI and below Constitutional: Constitutional: Reports no additional constitutional complaints Eyes: Eyes: Reports no additional eye complaints ENT: Reports system reviewed and no additional complaints, except as documented Cardiovascular: Cardiovascular: Reports no additional cardiovascular complaints Respiratory: Respiratory: Reports no additional respiratory complaints Gastrointestinal: Gastrointestinal: Reports no additional gastrointestinal complaints Genitourinary: Genitourinary: Reports no additional female genitourinary complaints Musculoskeletal: Musculoskeletal: Reports no additional musculoskeletal complaints Integumentary/Breasts: Skin/Breast: Reports system reviewed and no additional complaints, except as docu Neurologic: Reports system reviewed and no additional complaints, except as documented Psychiatric: Psychiatric: Reports no additional psychiatric complaints Endocrine: Endocrine: Reports no additional endocrine complaints Hematologic/Lymphatic: Hematologic/Lymphatic: Reports no additional hematologic/lymphatic complaints Allergic/Immunologic: Allergic/Immunologic: Reports no additional allergic/immunologic complaints PMFSH Past Medical History Medical History History of COVID-19 Diabetes Bronchitis Peripheral neuropathy HTN (hypertension) HLD (hyperlipidemia) Surgical History Surgical History History of lumbar surgery L4-L5 fusion History of rotator cuff surgery lt rotator cuff, 2 screws History of hysterectomy History of tubal ligation History of bilateral oophorectomy History of inguinal hernia repair As baby Family History Family History Mother Hypertension Father Family history of diabetes mellitus in first degree relative Family history of coronary artery disease Social History Social History Alcohol intake: never Gender identity (if verbalized by the patient): Female Exam Const: General: healthy appearing Nutritional Appearance: well nourished Orientation/consciousness: patient oriented x3 HENMT: Head: normal to inspection Ears: external ears normal Face/Nose/Sinus: Normal external nose present Eyes: Conjunctivae: conjunctivae normal Pupils: Equal, round and reactive pupils present EOM: EOMs intact bilaterally Neck: Neck: normal visual inspection Chest: Chest palpation & inspection: normal inspection of the chest Resp: Effort & Inspection: normal respiratory effort and not labored Auscultation: clear to auscultation bilaterally and no crackles Cardio: Rate: regular rate Rhythm: regular rhythm Heart sounds: no murmurs GI: Inspection: non-distended GI Palp: Yes Soft to palpation and No Tenderness to palpation present (GI) Auscultation: normal bowel sounds : General: Yes bladder normal to palpation Back/Spine/Pelvis: Back: no CVA tenderness Skin: General skin exam: normal color Rashes: no rashes Wounds: no wounds Neuro: General: patient oriented x3, moves all extremities and no meningeal signs Extrem: General: abnormal to inspection, no clubbing, cyanosis or edema and no pedal edema Other: Left shoulder has AC appearance of some small separation on examination and tender to palpation of the same area; painful range of motion Psych: Mental Status: mental status grossly normal Affect: normal affect Attitude: cooperative Course Vital Signs Vital signs: Vital Signs Temperature 36.7 C 05/30/25 17:05 Pulse Rate 93 05/30/25 17:05 Respiratory Rate 16 05/30/25 17:05 Blood Pressure 144/82 H 05/30/25 17:05 Pulse Oximetry 97 05/30/25 17:05 Oxygen Delivery Room Air 05/30/25 17:05 Temperature 36.7 C 05/30/25 17:05 Pulse Rate 93 05/30/25 17:05 Respiratory Rate 16 05/30/25 17:05 Blood Pressure 144/82 H 05/30/25 17:05 Pulse Oximetry 97 05/30/25 17:05 Oxygen Delivery Room Air 05/30/25 17:05 MDM - Extremity Injury (Upper) MDM Narrative Medical decision making narrative: Patient is a 60-year-old female with a left shoulder injury after falling off her stairs last night. X-ray. Toradol. Sling. MRI p.r.n.. Imaging Data Attestation: I personally reviewed and interpreted this imaging study as follows: Radiologist's impression: X-ray left shoulder is negative for acute process Discharge Plan Discharge Clinical Impression: Acromioclavicular joint separation Qualifiers: Encounter type: initial encounter Laterality: left Qualified Code(s): S43.102A - Unspecified dislocation of left acromioclavicular joint, initial encounter Patient Disposition: Home Condition: Stable Instructions: Acromioclavicular Separation (ED) Additional Instructions: Rest, ice, elevation and compression to the area. Ibuprofen and Tylenol as needed. MRI after 1 week of continued problems suggested. Patient Language: Iraqi Prescriptions: No Action hydrocodone-acetaminophen 5-325 mg tablet 1 tablet PO Q6H PRN (Reason: pain) Qty: 8 0RF atorvastatin 40 mg tablet 40 mg PO QPM glipizide 5 mg tablet extended release 24hr 5 mg PO DAILY hydrocodone-acetaminophen 5-325 mg tablet 1 tablet PO Q8H PRN (Reason: pain) Qty: 20 0RF meloxicam 15 mg tablet 15 mg PO DAILY 15 Days Qty: 15 0RF gabapentin 300 mg Capsule 300 mg PO TID cetirizine 10 mg tablet 10 mg PO DAILY trazodone 50 mg tablet 50 mg PO DAILY insulin glargine [Lantus Solostar U-100 Insulin] 100 unit/mL (3 mL) insulin pen 20 unit SUBCUT BID Follow-up/Referrals: Garcia,Chetna Coffman APN [Primary Care Provider, Unknown] Time of Disposition: 18:03
--- OUTSIDE RECORDS SUMMARY | 2025-05-30 17:41 | XMS_ITS | Clinical Summary ---
Author Organization [facility] [employer] Address [address] [place] [address] Care Team Providers Care High School Librarian Name Role Phone Chetna Garcia APRN-BUSINESS BANKING OFFICER Primary Care Provider [phone] Source Comments [facility] [employer],non-owned Affiliates and Associated Physician Practices is amultiple site organization consisting of ambulatory clinics and hospital sitesin [place], [place], [place] and [place]. This disclosure is being madepursuant to the Care Everywhere program and may not contain all information available regarding this patient. Last updated 18.[facility] [employer] Allergies Active Allergy Reactions Criticality Noted Date [...] Comments Blood Pressure 131/89 07/18/2021 1:59 PM WHEAT SHIPPER Pulse 102 07/18/2021 1:59 PM WHEAT SHIPPER Temperature 36.7 C (98 F) 07/18/2021 1:59 PM WHEAT SHIPPER Respiratory Rate 20 07/18/2021 1:59 PM WHEAT SHIPPER Oxygen Saturation 99% 07/03/2021 4:59 PM WHEAT SHIPPER Inhaled Oxygen Concentration - - Weight 51.3 kg (113 lb) 07/18/2021 1:59 PM WHEAT SHIPPER Height 154.9 cm (5' 1) 07/18/2021 1:59 PM WHEAT SHIPPER Body Mass Index 21.35 07/18/2021 1:59 PM WHEAT SHIPPER Plan of Treatment Health Maintenance Due Date [...] (1 of 2) 2017 MAMMOGRAM 03/21/2023 03/21/2021 DEPRESSION SCREENING 07/27/2024 COVID-19 VACCINE (3 - 2024-2 6 season) 2025 02/01/2021, 12/28/2020 INFLUENZA VACCINE (#1) 2025 7, 05/12/2016 HIB VACCINE Aged Out No longer [...] to complete this topic Insurance [facility] Care Teams High School Librarian Relationship Specialty Start Date End Date Chetna Garcia APRN-[address] [place] [address] PCP - General Nurse Practitioner Family 07/03/21
--- OUTSIDE RECORDS SUMMARY | 2025-05-30 17:41 | XMS_ITS | Clinical Summary ---
Author Organization [facility] [address] [facility] lto Address [address] [place] [address] Care Team Providers Care Paste Up Artist Apprentice Name Role Phone Chetna Garcia NP Primary Care Provider Allergies Active Allergy Reactions Criticality Noted Date Comments Codeine Nausea And Vomiting 06/04/2021 Medications insulin syringe-needle U-100 1 mL 25 gauge x 5/8 syringe lantus insulin twice daily 100 Syringe 6 10/31/19 17 Active TRUE METRIX GLUCOSE TEST STRIP strip 6 03/12/20 17 Active FLUVIRIN [id number], PF, 45 mcg (15 mcg x 3)/0.5 [...] long-term current use of insulin ([facility]),Diabetic polyneuropathy associated with type 2 diabetes mellitus (HCC) Inject 0.24 mL (24 Units total) under the skin 2 (two) times a day. 3 pen 3 11/13/19 18 Active gabapentin (NEURONTIN) 300 mg capsuleIndications :Type 2 diabetes mellitus with diabetic neuropathy, with long-term current use of insulin ([facility]),Diabetic polyneuropathy associated with type 2 diabetes mellitus (HCC),Type 2 diabetes mellitus with diabetic polyneuropathy, with long-term current use of insulin ([facility]) TAKE 1 CAPSULE BY MOUTH [...] CDT): Hearing test [facility] in [place] Otitis media 08/11/2017 Referred otalgia of left ear 08/11/2017 Assessment & Plan (01/14/2023 3:39 PM CDT): Hearing test [facility] [place] Pain in wrist 09/09/2016 Overview (10/31/2016): Left [...] on file Legal Sex Female 3:15 PM DIGITAL CONTENT SPECIALIST Gender Identity Not on file Sexual Orientation [...] Read Routine (OP Routine) 08/11/2017 3:43 PM DIGITAL CONTENT SPECIALIST Screening breast examination PAP SMEAR WITH HPV [...] Mammogram Bilateral W Evgeny (08/11/2017 3:43 PM DIGITAL CONTENT SPECIALIST) Anatomical Region Laterality Modality Breast Bilateral Mammography Addenda Addendum by Jose Alejandro Garsia MD on 11/06/2017 7:18 AM CDT ADDENDUM #1 Comparison is now made to a prior study from 03/20/2014 from [facility]. No interval suspicious mass or calcification [...] Alejandro Garsia M.D. Impressions 08/11/2017 3:58 PM DIGITAL CONTENT SPECIALIST 1. NO DEFINITIVE MAMMOGRAPHIC EVIDENCE OF MALIGNANCY. IF PRIOR STUDIES BECOME AVAILABLE AN ADDENDUM WILL BE ISSUED OTHERWISE ANNUAL FOLLOW-UP RECOMMENDED. BI-RADS 2 Electronically signed by: Jose Alejandro Garsia M.D. Narrative 08/11/2017 3:58 PM DIGITAL CONTENT SPECIALIST SCREENING MAMMOGRAM BILATERAL W EVGENY HISTORY: Encounter [...] by: Jose Alejandro Garsia M.D. Katie Duarte EDUCATIONAL RECRUITER IMG MAMMO PROCEDURES Edit ed Result - Final * PAP SMEAR WITH HPV (06/26/2017) Pap smear Unknown Comment:[place] 06/2017 [facility] Provider HEALTH MAINTENANCE Final Result * DIABETES FOOT EXAM (03/02/2017) Pathologist [facility] Diabetic Foot Exam Normal SCRIBED DM FOOT SITES SENSED 6 Comment:6:6 [facility] Provider HEALTH MAINTENANCE Final Result * LIPID PANEL (09/10/2016) Pathologist [facility] Lipid Panel Abnormal Comment:TU=572 HDL=37 CV=968 BSQ=606 [facility] Provider HEALTH MAINTENANCE Final Result * DIABETES EYE EXAM (02/25/2016) Diabetic Eye Exam Normal Result [facility] Provider HEALTH MAINTENANCE Final Result from Last 3 Months or Most Recently Relevant to Health Maintenance Insurance [facility] Care Teams Paste Up Artist Apprentice Relationship Specialty Start Date End Date Chetna Garcia NP [address] [place] [address] PCP - General Nurse Practitioner 10/16/22
--- OUTSIDE RECORDS SUMMARY | 2025-05-30 17:41 | XMS_ITS | Clinical Summary ---
Author Organization [facility] Address [address] [place] [address] Care Team Providers Care Cras Name Role Phone La Chiang MD Primary Care Provider [phone] Social History Tobacco Use Types Packs/Day Years [...] age to complete this topic Care Teams Cras Relationship Specialty Start Date End Date La Chiang MD [address] [address] PCP - General 12/03/11
--- OUTSIDE RECORDS SUMMARY | 2025-05-30 17:42 | XMS_ITS | Clinical Summary ---
Author Organization [facility] Address [address], [address] [address] Phone Care Team Providers Care Nut Orchardist Name Role Phone Chetna Garcia APRN, CNP Primary Care Provider [phone] Allergies No known active allergies Medications ursodiol [...] Recently Relevant to Health Maintenance Results * PRAHSANTH SCREENING BILATERAL DIGITAL W CAD W MARISOL [...] made to exams dated: 03/21/2021 [facility], 08/11/2017 [facility], and 03/20/2014 [facility]. BREAST TISSUE:There are scattered fibroglandular densities [...] exam. Electronically signed by: Kaylan servin/olivier:03/25/2023 11:04:31 Guest House Manager(s): RT Vani(R)(M), [facility] letter sent: Normal Exam Reading location: [facility] BI-RADS: 2 Benign Procedure Note Kaylan [...] Comparison is made to [facility]: [facility], and 03/20/2014 [facility]. BREAST TISSUE:There are scattered fibroglandular densities [...] signed by: Kaylan Zimmerman M.D. ab/penrad:03/25/2023 11:04:31 Guest House Manager(s): RT Vani(R)(M), [facility] letter sent: Normal Exam Reading location: [facility] BI-RADS: 2 Benign Chetna Garcia APRN, CNP IMG MAMMO ORDERABLES Amarilys l Result from Last 3 Months or Most Recently Relevant to [place] [address] MED[place] Care Teams Nut Orchardist Relationship Specialty Start Date End Date Chetna Garcia APRN, CNP PCP - General Family Medicine 01/25/19
[2025-05-30] MEDS: KETOROLAC (*BKC) 60 MG/2 ML VIAL IM (18:05)
[2025-05-30 18:28] VITALS: BP 144/82; PULSE 93; RESP 17; TEMP 36.6; O2SAT 97
== END 2025-05-30 18:28 | disposition home or self-care (01) ==
PROVIDERS: Emergency Provider Emergency Medicine; PCP Nurse Practitioner Family
DX: S43.102A Unspecified dislocation of left acromioclavicular joint, initial encounter (principal); E78.5 Hyperlipidemia, unspecified; E11.9 Type 2 diabetes mellitus without complications; I10 Essential (primary) hypertension; W10.9XXA Fall (on) (from) unspecified stairs and steps, initial encounter
CPT/HCPCS: 73030; 96372; 99283; A4565; J1885